=== PATIENT | female | born 1950 | race Caucasian/White ===

== ENCOUNTER 2018-10-26 08:00 | Day surgery (SDC) | payer MEDICARE, SELFPAY ==
--- NOTE | 2018-10-22 18:42 | PM.PREOP ---
Pre-operative Note Interval Note History & Physical reviewed/Exam performed by Physician: Yes Changes to H&P: No
--- NOTE | 2018-10-22 18:42 | PM.OP.1 ---
Operative Date/Time/Diagnoses Date of procedure: 10/26/18 Time of procedure: 08:45 Procedure & Clinicians Procedure: Preoperative diagnoses: 1. Left nuclear sclerotic and cortical cataract. 2. Morbid obesity. Postoperative diagnoses: 1. Cataract removed by phacoemulsification with placement of posterior chamber intraocular lens. Procedure: Phacoemulsification with posterior chamber intraocular lens implant Surgeon: Jana Pina MD Complications: None Specimen: None Implant: ZCBOO+19.5 Blood loss: None Anesthesia: Retrobulbar with monitored standby Description of procedure: Patient presents with a complaint of decreased vision due to cataract which is affecting activities of daily living. The patient wants surgery to improve vision. The patient was taken to the operating room and given IV sedation. A retrobulbar block consisting of 6 cc of 2% xylocaine without epinephrine mixed half and half with 0.5% Marcaine with 1 cc of hyaluronidase added is placed between the medial and lateral 1/3 of the inferior orbital rim. Lid akinesia is obtain with 1% xylocaine with epinephrine infiltrated along the lid margin. The eye is manually massaged for 30 sec, prepped using Betadine solution, and draped in the usual sterile fashion. Temporal approach was made, a 1 mm side-port incision was made 90? from the proposed clear corneal incision position. Phenylephrine 1.5% mixed with 1% xylocaine 0.2 cc was placed into the anterior chamber. Viscoat followed by Robert was then placed. A 2.6 mm clear incision with a 2.6 mm blade was placed. A 360 degree capsulorrhexis style capsulotomy was then performed with a cystitome needle on a Healon. Hydrodelineation and hydrodissection were performed. The phacoemulsification unit is introduced, and sculpting notice used to groove the central lens. It is then removed in chopping mode. Epi nucleus is removed with epinuclear mode and irrigation aspiration was used to remove the peripheral cortex. The posterior capsule is polished. The intraocular lens is selected, inspected, power confirmed, and placed in the posterior chamber. The pupil was constricted with Miostat.. The wound was stromally hydrated and tested for leaks, there was none and it was left sutureless. Vigamox 0.1 cc was placed into the anterior chamber. Kenalog 0.2 cc was placed in the superior subconjunctival space. A drop of antibiotic and was placed and the eye was patched and shielded. The patient was stable and returned to the recovery room in excellent condition. Dictated by: Jana Pina MD Copy to: [facility]
[2018-10-26] MEDS: PROPARACAINE 0.5% OPHTH SOL 2 DROPS EYE-OP (08:18)
[2018-10-26] MEDS: CATARACT EYE COMPOUND (10 DROPS/SYRINGE) 3 DROPS EYE-OP (08:24)
[2018-10-26 08:27] VITALS: BP 141/87; PULSE 70; RESP 16; O2SAT 95; BMI 35.9
[2018-10-26] MEDS: BALANCED SALT IRRIG SOLN NO.2 15 ML IRR (09:18)
[2018-10-26] MEDS: CARBACHOL 1.5 ML VIAL INJ (09:18)
[2018-10-26] MEDS: CHONDROIDTIN/SOD HYALURONATE 1.05 ML SYRINGE INTRAOCULA (09:19)
[2018-10-26] MEDS: HYALURONATE SODIUM 10 MG/ML SYRINGE INJ (09:19)
[2018-10-26] MEDS: LIDOCAINE 1% W/EPI INJ 20 ML INJ (09:19)
[2018-10-26] MEDS: ERYTHROMYCIN OPHTH 1 GM OINT 1 APPLIC EYE-LEFT (09:19)
[2018-10-26] MEDS: MOXIFLOXACIN OPHTH DROPS 3 ML BOTTLE 2 DROPS INJ (09:20)
[2018-10-26] MEDS: OFLOXACIN 0.3% OPHTH 5 ML 2 DROPS EYE-LEFT (09:20)
[2018-10-26] MEDS: TRIAMCINOLONE 50 MG/5 ML VIAL INJ (09:21)
[2018-10-26] MEDS: PHENYLEPHRINE/LIDOCAINE VIAL (OR) 0.2 ML EYE-OP (09:21)
[2018-10-26] MEDS: BALANCED SALT IRRIG SOLN NO.2 500 ML, EPINEPHrine 1 MG IRR (09:22)
[2018-10-26] MEDS: LIDOCAINE 2% 4 ML, BUPIVACAINE 0.5% (PF) 4 ML, HYALURONIDASE 150 UNIT INJ (09:23)
[2018-10-26 09:45] VITALS: BP 152/82; PULSE 57; RESP 20; TEMP 36.5; O2SAT 97
== END 2018-10-26 09:55 | disposition home or self-care (01) ==
LOC: OR 08:05
PROVIDERS: Visit Provider Ophthalmology
PROC: (CPT 66984; principal; 2018-10-26 08:45)
DX: H25.812 Combined forms of age-related cataract, left eye (principal); E66.01 Morbid (severe) obesity due to excess calories
CPT/HCPCS: 66984; J0171; J2704; J3301; J3470

== ENCOUNTER 2018-11-02 11:53 | Day surgery (SDC) | payer MEDICARE, SELFPAY ==
--- NOTE | 2018-11-01 18:33 | PM.PREOP ---
Pre-operative Note Interval Note History & Physical reviewed/Exam performed by Physician: Yes Changes to H&P: No
--- NOTE | 2018-11-02 08:40 | PM.OP.1 ---
Operative Date/Time/Diagnoses Date of procedure: 11/02/18 Time of procedure: 13:15 Procedure & Clinicians Procedure: Preoperative diagnoses: 1. Right nuclear sclerotic and cortical cataract. Postoperative diagnoses: 1. Cataract removed by phacoemulsification with placement of posterior chamber intraocular lens. Procedure: Phacoemulsification with posterior chamber intraocular lens implant Surgeon: Jana Pina MD Complications: None Specimen: None Implant: ZCBOO +19.0 Blood loss: None Anesthesia: Retrobulbar with monitored standby Description of procedure: Patient presents with a complaint of decreased vision due to cataract which is affecting activities of daily living. The patient wants surgery to improve vision. The patient was taken to the operating room and given IV sedation. A retrobulbar block consisting of 6 cc of 2% xylocaine without epinephrine mixed half and half with 0.5% Marcaine with 1 cc of hyaluronidase added is placed between the medial and lateral 1/3 of the inferior orbital rim. The eye is manually massaged for 30 sec, prepped using Betadine solution, and draped in the usual sterile fashion. Temporal approach was made, a 1 mm side-port incision was made 90? from the proposed clear corneal incision position. Phenylephrine 1.5% mixed with 1% xylocaine 0.2 cc was placed into the anterior chamber. Viscoat followed by Robert was then placed. A 2.6 mm clear incision with a 2.6 mm blade was placed. A 360 degree capsulorrhexis style capsulotomy was then performed with a cystitome needle on a Healon. Hydrodelineation and hydrodissection were performed. The phacoemulsification unit is introduced, and sculpting notice used to groove the central lens. It is then removed in chopping mode. Epi nucleus is removed with epinuclear mode and irrigation aspiration was used to remove the peripheral cortex. The posterior capsule is polished. The intraocular lens is selected, inspected, power confirmed, and placed in the posterior chamber. The pupil was constricted with Miostat.. The wound was stromally hydrated and tested for leaks, there was none and it was left sutureless. Vigamox 0.1 cc was placed into the anterior chamber. Kenalog 0.2 cc was placed in the superior subconjunctival space. A drop of antibiotic and was placed and the eye was patched and shielded. The patient was stable and returned to the recovery room in excellent condition. Dictated by: Jana Pina MD Copy to: [facility]
[2018-11-02 12:13] VITALS: BP 134/78; PULSE 60; RESP 16; TEMP 36.7; O2SAT 98; BMI 36.0
[2018-11-02] MEDS: PROPARACAINE 0.5% OPHTH SOL 2 DROPS EYE-OP (12:23)
[2018-11-02] MEDS: CATARACT EYE COMPOUND (10 DROPS/SYRINGE) 3 DROPS EYE-OP (12:30)
[2018-11-02] MEDS: PHENYLEPHRINE/LIDOCAINE VIAL (OR) 0.2 ML EYE-OP (14:23)
[2018-11-02] MEDS: CHONDROIDTIN/SOD HYALURONATE 1.05 ML SYRINGE INTRAOCULA ×2 (14:24→14:26)
[2018-11-02] MEDS: TRIAMCINOLONE 50 MG/5 ML VIAL INJ (14:24)
[2018-11-02] MEDS: MOXIFLOXACIN OPHTH DROPS 3 ML BOTTLE 2 DROPS INJ (14:24)
[2018-11-02] MEDS: LIDOCAINE 2% 4 ML, BUPIVACAINE 0.5% (PF) 4 ML, HYALURONIDASE 150 UNIT INJ (14:25)
[2018-11-02] MEDS: BALANCED SALT IRRIG SOLN NO.2 500 ML, EPINEPHrine 1 MG IRR (14:25)
[2018-11-02] MEDS: BALANCED SALT IRRIG SOLN NO.2 15 ML IRR (14:27)
[2018-11-02] MEDS: LIDOCAINE JELLY 2% 5 ML 1 APPLIC TOP (14:28)
[2018-11-02] MEDS: HYALURONATE SODIUM 10 MG/ML SYRINGE INJ (14:29)
[2018-11-02] MEDS: ERYTHROMYCIN OPHTH 1 GM OINT 1 APPLIC EYE-RIGHT (14:30)
[2018-11-02 14:46] VITALS: BP 135/80; PULSE 61; RESP 15; TEMP 36.4; O2SAT 97
[2018-11-02 18:18] VITALS: BP 129/79; PULSE 66; RESP 16; TEMP 36.7; O2SAT 99
== END 2018-11-02 15:10 | disposition home or self-care (01) ==
LOC: OR 11:56
PROVIDERS: Visit Provider Ophthalmology
PROC: (CPT 66984; principal; 2018-11-02 13:15)
DX: H25.811 Combined forms of age-related cataract, right eye (principal); I10 Essential (primary) hypertension
CPT/HCPCS: 66984; J0171; J2250; J3010; J3301; J3470

== ENCOUNTER → 2021-01-17 14:58 | Outpatient (CLI) | payer MEDICARE, SELFPAY ==
--- NOTE | 2021-01-17 | DI.MG.S_ITS ---
BILATERAL DIGITAL SCREENING MAMMOGRAM 3D/2D WITH CAD: 01/17/2021 CLINICAL: Routine screening. Comparison is made to exams dated: 06/06/2015 mammogram, 08/04/2016 mammogram, and 09/22/2017 mammogram - outside facility. There are scattered fibroglandular elements in both breasts. Current study was also evaluated with a Computer Aided Detection (CAD) system. No significant masses, calcifications, or other findings are seen in either breast. There has been no significant interval change. IMPRESSION: NEGATIVE There is no mammographic evidence of malignancy. A 1 year screening mammogram is recommended. This exam was interpreted at Station ID: [id number]. NOTE: For mammograms, a report in lay terms will be sent to the patient. Approximately 15% of breast malignancies will not be visualized mammographically. In the management of a palpable breast mass, a negative mammogram must not discourage biopsy of a clinically suspicious lesion. Electronically Signed By: Fady Ortiz M.D. [facility] [place]:01/17/2021 17:07:49 letter sent: Normal Exam ACR BI-RADS Category 1: Negative 3341F
== END ==
PROVIDERS: PCP Internal Medicine; Referring Provider Internal Medicine; Visit Provider Internal Medicine
DX: Z12.31 Encounter for screening mammogram for malignant neoplasm of breast (principal)
CPT/HCPCS: 77063; 77067

== ENCOUNTER → 2022-04-21 15:43 | Outpatient (CLI) | payer MEDICARE, SELFPAY ==
--- NOTE | 2022-04-21 15:45 | DI.MG.S_ITS ---
BILATERAL DIGITAL SCREENING MAMMOGRAM 3D/2D WITH CAD: 04/21/2022 CLINICAL: Routine screening. Family history of breast cancer. Comparison is made to exams dated: 01/17/2021 mammogram - [facility] and 09/22/2017 mammogram - outside facility. There are scattered areas of fibroglandular density in both breasts (category b / 25%-50% glandular tissue). Current study was also evaluated with a Computer Aided Detection (CAD) system. No significant masses, calcifications, or other findings are seen in either breast. There has been no significant interval change. IMPRESSION: NEGATIVE There is no mammographic evidence of malignancy. A 1 year screening mammogram is recommended. Based on the Tyrer Cuzick model (a risk assessment model) the patient's lifetime risk is 3.5% and her 10 year risk is 2.4%. According to the ACR, ACS, and NCCN guidelines, an annual breast MRI exam along with mammogram is recommended if the patient's lifetime risk is 20% or greater. This exam was interpreted at Station ID: [id number]. NOTE: For mammograms, a report in lay terms will be sent to the patient. Approximately 15% of breast malignancies will not be visualized mammographically. In the management of a palpable breast mass, a negative mammogram must not discourage biopsy of a clinically suspicious lesion. Electronically Signed By: Fady madsen/vitaliy:04/22/2022 10:35:53 letter sent: Normal Exam ACR BI-RADS Category 1: Negative 3341F
== END ==
PROVIDERS: Family Provider Orthopaedic Surgery; PCP Orthopaedic Surgery; Referring Provider Family Medicine Adult Medicine; Visit Provider Family Medicine Adult Medicine
DX: Z12.31 Encounter for screening mammogram for malignant neoplasm of breast (principal); Z80.3 Family history of malignant neoplasm of breast
CPT/HCPCS: 77063; 77067

== ENCOUNTER 2022-07-23 09:00 | Outpatient (RCR) | payer MEDICARE, SELFPAY ==
--- NOTE | 2022-05-11 18:06 | PT.OIE ---
Current Diagnoses Unilateral primary osteoarthritis, left knee (05/11/22) Visit Care Team Role Provider Type Joel Ibanez MD Attending Provider Non-Staff Family Provider Primary Care Provider Referring Provider Specialty: Orthopedic Surgery Address: [address], [place], [address] Email: Physical Therapy Initial Evaluation PT-OP-A Visit Information Start: 05/09/22 16:15 Freq: Status: Active Protocol: Document 05/11/22 09:07 LRN (Rec: 05/11/22 09:47 LRN [id number]) Out-Patient Physical Therapy Visit Information Visit Information Visit Type Initial Evaluation Visit Start Time 09:07 Visit Stop Time 09:46 Total Visit Minutes 39 Visit Number 1 Evaluation Information Evaluation Date 05/11/22 Precautions Precautions Cardiac arrhythmia s/p surgery , and being assessed for Cardiac arrhythmia. R TKA -rehab ending 02/13/22. PT-OP-B Current Condition Start: 05/09/22 16:15 Freq: Status: Active Protocol: Document 05/11/22 09:07 LRN (Rec: 05/11/22 09:47 LRN [id number]) Current Condition History of Current Condition Onset Date 04/27/22 Current Complaints Lack of L knee rom, pain-reqs med, hamstring tight, antalgic gt-FWW. History of Current Condition Pt is s/p L TKA on 04/27/22 and was in hospital 1 day but due to onset of A.Fib was kept in recovery for a few more hours . Wore a heart monitor for a week with removal tomorrow. States with her R TKA she had sinus arrythmia, otherwise no history of cardiac issues. Prior Treatments and Tests Eval and 3 treatments immediately after her TKA in [facility] prior to transfer to [facility]. PT was Reny Downs DPT. Future Testing and Treatments Planned Production Control Analyst appt tomorrow. Treatment Goals Patient/Caregiver Goals Pt goals: - walk correctly without an assistive device. - Stairs with normal gait. - Transfer without assist of strap. Personal Factors Other Personal Factors That May Effect Pt s/p R TKA 12/10/21 with last Therapy/Recovery rehab treatment 02/13/22, ending with difficulty with sit to stand from lower surfaces. Pt being assessed currently for Cardiac arrhythmia. PT-OP-G Mobility & Gait Start: 05/09/22 16:15 Freq: Status: Active Protocol: Document 05/11/22 09:07 LRN (Rec: 05/11/22 09:47 LRN [id number]) OP Mobility Evaluation Bed Mobility Supine to and from Sit Independent with use of strap to help lift the LLE off the bed. Transfers Sit to Stand Independent with use of hands and FWW from higher surface. OP Gait Assessment Gait Gait Assistance Required: Independent Able to Maintain Weight Bearing Status Yes During Gait Assistive Devices Assistive Device Front Wheeled Walker Gait Deviations General Gait Pattern Antalgic,Decreased Stride Length,Flexed Trunk,Step-to Gait Stair Climbing Evaluation Devices Stair Climbing Assistive Devices Right Railing Technique/Endurance Stair Climbing Direction Ascend and Descend Stair Climbing Technique Step to Step Comments Stair Climbing Comments Ascending railing on R, Walking stick on L. PT-OP-H Neuro Start: 05/09/22 16:15 Freq: Status: Active Protocol: Document 05/11/22 09:07 LRN (Rec: 05/11/22 09:47 LRN [id number]) Sensation Evaluation Comments Summary Comments Sensation intact to soft touch in areas not covered by bandage. PT-OP-J Posture/Palpation/Skin Start: 05/09/22 16:15 Freq: Status: Active Protocol: Document 05/11/22 09:07 LRN (Rec: 05/11/22 09:47 LRN [id number]) Posture Evaluation Position Standing L-Spine Posture Flattened Weight Distribution Weight Shifted Right Hip Posture (L) Flexed,(R) Flexed Comments Posture Comments Pt assessed with use of FWW for balance support. Palpation Assessment Location L knee Palpation Location Areas around scar protective bandage. Palpation Details Sensation intact. Skin Assessment Other Assessments Skin Assessment Comments Patient wearing thigh-high MIRELA hose left LE. Pt incision covered with protective bandage. PT-OP-K Range of Motion Start: 05/09/22 16:15 Freq: Status: Active Protocol: Document 05/11/22 09:07 LRN (Rec: 05/11/22 09:47 LRN [id number]) Knee Goniometric Range of Motion Knee Right Knee ROM WFL Yes Patient Position Supine Flexion Active (degrees) 116 Extension Active (degrees) 6 Extension Passive (degrees) 0 Comments Extension deg's indicates lack of extension to normal. Left Knee ROM WFL No Patient Position Supine Flexion Active (degrees) 58 Flexion Passive (degrees) 70 Extension Active (degrees) 30 Extension Passive (degrees) 6 Comments Extension deg's indicates lack of extension to normal. Ankle and Foot Goniometric Range of Motion Ankle and Foot Right Active Dorsiflexion with Knee Extended 8 Inversion 22 Comments PF and EV are normal Left Active Testing Position Supine Dorsiflexion with Knee Extended 0 Inversion 12 Comments PF and EV are normal PT-OP-M Strength Start: 05/09/22 16:15 Freq: Status: Active Protocol: Document 05/11/22 09:07 LRN (Rec: 05/11/22 09:47 LRN [id number]) Hip Strength Hip Manual Muscle Testing Right Flexion (L2) 5 Normal Left Flexion (L2) 2 Poor Knee Strength Knee Manual Muscle Testing Right Flexion (S2) 5 Normal Extension (L3) 5 Normal Left Flexion (S2) 2 Poor Extension (L3) 2- Poor- Ankle/Foot Strength Ankle and Foot Manual Muscle Testing Right Dorsiflexion (L4) 5 Normal Plantarflexion (S1) 5 Normal Inversion 5 Normal Eversion (S1) 5 Normal Left Dorsiflexion (L4) 5 Normal Plantarflexion (S1) 5 Normal Inversion 5 Normal Eversion (S1) 5 Normal PT-OP-Q Treatments Start: 05/09/22 16:15 Freq: Status: Active Protocol: Document 05/11/22 09:07 LRN (Rec: 05/11/22 09:47 LRN [id number]) Therapeutic Exercises Supine Exercises Hip AB Supine Exercise Name Assisted hip AB Side left Reps/Minutes 10x Heel slides Supine Exercise Name Heel slides Side left Reps/Minutes 5x SLR Supine Exercise Name Assisted SLR Side left Reps/Minutes 10x QS Supine Exercise Name L QS Side left Reps/Minutes 10 SH x 6 Self-Care/Home Management Treatment Education Other Education Discussed results of evaluation, goals, and plan of care (POC). Pt agreeable to goals and POC. PT-OP-T Assessment and Plan Start: 05/09/22 16:15 Freq: Status: Active Protocol: Document 05/11/22 09:07 LRN (Rec: 05/11/22 09:47 LRN [id number]) Physical Therapy Assessment Rehab Potential Rehabilitation Potential Good Evaluation Complexity Number of Personal Factors/Comorbidities 1-2 Number of Body Systems Impaired 4 or More Clinical Presentation at Evaluation Evolving Impairments Impairments Activity Tolerance,Balance, Gait,Pain,ROM,Sensation,Soft Tissue Mobility,Strength Goals Four Impairment L knee/hip weakness Impairment L knee strength: Flexion 2/5, Extension 2-/5 R knee strength: Flex/Ext is 5/5 Short Term Goal (STG) Improve L knee strength to at least 3+/5, with pt able to transfer out of bed without the use of a strap to move the LLE. STG Duration 06/26/22 Fpc Goal (LTG) Improve L knee strength to at least 4+/5 to allow patient to ambulate stairs with a normal gait. LTG Duration 08/09/22 Three Impairment Decreased L knee AROM Impairment L knee AROM (deg's): 30-58, PROM (deg's): 6-70 R knee AROM (deg's): 6-116, PROM (deg's): 0 deg's extension. Short Term Goal (STG) Improve L knee PROM to 5-120 STG Duration 06/26/22 Program Eligibility Specialist Goal (LTG) Improve L knee PROM to 0-125 LTG Duration 08/09/22 Two Impairment gait dysfunction Impairment Pt ambs with FWW, antalgic gait, lacks L ankle/knee mobility Short Term Goal (STG) Patient able to ambulate household distances with cane with min to no limp on level surfaces. STG Duration 06/26/22 Fpc Goal (LTG) Pt will ambulate with a normal gait or very minimal antalgic gait without an assistive device. LTG Duration 08/09/22 One Impairment Lacks self care HEP Short Term Goal (STG) Pt will be educated in edema management. STG Duration 05/15/22 Fpc Goal (LTG) Pt will be independent with a self care HEP of L knee, ankle , hip ROM/strengthening ex's to address areas of deficit. LTG Duration 08/09/22 Assessment Summary Assessment Pt is a 71 yo female s/p L TKA on 04/27/22. Pt recently had a R TKA on 12/10/21 with last rehab treatment 02/13/22. The pt presents with very limited L knee strength and fair to poor AROM with extension lag of 30 deg's. The pt demonstrates a dysfunctional gait requiring the use of FWW for safe ambulation. She demonstrates decreased ankle mobility and decreased hip mobility/strength. Pain is limiting her mobility and she is concerned that she will have more difficulty once she runs out of her current prescription pain medications. The pt will benefit from skilled physical therapy to improve her L knee/ankle/hip ROM, strength, and balance/ gait training to improve her safety with gait and return her to her baseline of ambulation and improve her transfer ability from lower surfaces. The pt has noted that she is having more pain with this surgery when compared to her R TKA surgery, but feels her knee mobility has progressed faster. The pt is expected to do well with therapy, but may have difficulty with transfers from low surfaces due to R knee decreased mobility. The pt may need extra encouragement to resume R TKA ex's to improve ROM to her prior functional level in order to achieve her goals set for her L TKA. Physical Therapy Plan Frequency and Duration Frequency of Treatment 2x/Week Plan of Care Start Date 05/11/22 Plan of Care End Date 08/09/22 Therapeutic Interventions Therapeutic Interventions Balance Training,Gait Training ,Home Exercise Program,Manual Therapy,Patient/Caregiver Education,Self-Care/Home Management,Soft Tissue Mobilization,Taping, Therapeutic Activities, Therapeutic Exercises Modalities Cold Pack/Ice Massage,Hot Packs Next Visit Focus/Plan Next Note Type Treatment Note Next Visit Plan Gait training with emphasis on heelstrike and normalizing of gait, Pain management education, transfer training for independence. L knee ROM, L ankle DF stretching, L hip strengthening. Stair training when appropriate mobiltiy achieved. Progress HEP as tolerated including consider adding standing heel raises and marching. Modalities for pain management .
--- NOTE | 2022-05-11 18:08 | PT.OIE ---
Current Diagnoses Unilateral primary osteoarthritis, left knee (05/11/22) Visit Care Team Role Provider Type Joel Ibanez MD Attending Provider Non-Staff Family Provider Primary Care Provider Referring Provider Specialty: Orthopedic Surgery Address: [address], [place], [address] Email: Physical Therapy Initial Evaluation PT-OP-A Visit Information Start: 05/09/22 16:15 Freq: Status: Active Protocol: Document 05/11/22 09:07 LRN (Rec: 05/11/22 09:47 LRN [id number]) Out-Patient Physical Therapy Visit Information Visit Information Visit Type Initial Evaluation Visit Start Time 09:07 Visit Stop Time 09:46 Total Visit Minutes 39 Visit Number 1 Evaluation Information Evaluation Date 05/11/22 Precautions Precautions Cardiac arrhythmia s/p surgery , and being assessed for Cardiac arrhythmia. R TKA -rehab ending 02/13/22. PT-OP-B Current Condition Start: 05/09/22 16:15 Freq: Status: Active Protocol: Document 05/11/22 09:07 LRN (Rec: 05/11/22 09:47 LRN [id number]) Current Condition History of Current Condition Onset Date 04/27/22 Current Complaints Lack of L knee rom, pain-reqs med, hamstring tight, antalgic gt-FWW. History of Current Condition Pt is s/p L TKA on 04/27/22 and was in hospital 1 day but due to onset of A.Fib was kept in recovery for a few more hours . Wore a heart monitor for a week with removal tomorrow. States with her R TKA she had sinus arrythmia, otherwise no history of cardiac issues. Prior Treatments and Tests Eval and 3 treatments immediately after her TKA in [facility] prior to transfer to [facility]. PT was Reny Downs DPT. Future Testing and Treatments Planned Health Technician appt tomorrow. Treatment Goals Patient/Caregiver Goals Pt goals: - walk correctly without an assistive device. - Stairs with normal gait. - Transfer without assist of strap. Personal Factors Other Personal Factors That May Effect Pt s/p R TKA 12/10/21 with last Therapy/Recovery rehab treatment 02/13/22, ending with difficulty with sit to stand from lower surfaces. Pt being assessed currently for Cardiac arrhythmia. PT-OP-C Subjective Start: 05/09/22 16:15 Freq: Status: Active Protocol: Document 05/11/22 09:07 LRN (Rec: 05/11/22 18:08 LRN [id number]) Patient Questionnaires Lower Extremity Functional Scale LEFS Score 14 LEFS Impairment 80 to 99% Impaired (Score 1-16 ) PT-OP-G Mobility & Gait Start: 05/09/22 16:15 Freq: Status: Active Protocol: Document 05/11/22 09:07 LRN (Rec: 05/11/22 09:47 LRN [id number]) OP Mobility Evaluation Bed Mobility Supine to and from Sit Independent with use of strap to help lift the LLE off the bed. Transfers Sit to Stand Independent with use of hands and FWW from higher surface. OP Gait Assessment Gait Gait Assistance Required: Independent Able to Maintain Weight Bearing Status Yes During Gait Assistive Devices Assistive Device Front Wheeled Walker Gait Deviations General Gait Pattern Antalgic,Decreased Stride Length,Flexed Trunk,Step-to Gait Stair Climbing Evaluation Devices Stair Climbing Assistive Devices Right Railing Technique/Endurance Stair Climbing Direction Ascend and Descend Stair Climbing Technique Step to Step Comments Stair Climbing Comments Ascending railing on R, Walking stick on L. PT-OP-H Neuro Start: 05/09/22 16:15 Freq: Status: Active Protocol: Document 05/11/22 09:07 LRN (Rec: 05/11/22 09:47 LRN [id number]) Sensation Evaluation Comments Summary Comments Sensation intact to soft touch in areas not covered by bandage. PT-OP-J Posture/Palpation/Skin Start: 05/09/22 16:15 Freq: Status: Active Protocol: Document 05/11/22 09:07 LRN (Rec: 05/11/22 09:47 LRN [id number]) Posture Evaluation Position Standing L-Spine Posture Flattened Weight Distribution Weight Shifted Right Hip Posture (L) Flexed,(R) Flexed Comments Posture Comments Pt assessed with use of FWW for balance support. Palpation Assessment Location L knee Palpation Location Areas around scar protective bandage. Palpation Details Sensation intact. Skin Assessment Other Assessments Skin Assessment Comments Patient wearing thigh-high MIRELA hose left LE. Pt incision covered with protective bandage. PT-OP-K Range of Motion Start: 02/11/23 16:15 Freq: Status: Active Protocol: Document 05/11/22 09:07 LRN (Rec: 05/11/22 09:47 LRN [id number]) Knee Goniometric Range of Motion Knee Right Knee ROM WFL Yes Patient Position Supine Flexion Active (degrees) 116 Extension Active (degrees) 6 Extension Passive (degrees) 0 Comments Extension deg's indicates lack of extension to normal. Left Knee ROM WFL No Patient Position Supine Flexion Active (degrees) 58 Flexion Passive (degrees) 70 Extension Active (degrees) 30 Extension Passive (degrees) 6 Comments Extension deg's indicates lack of extension to normal. Ankle and Foot Goniometric Range of Motion Ankle and Foot Right Active Dorsiflexion with Knee Extended 8 Inversion 22 Comments PF and EV are normal Left Active Testing Position Supine Dorsiflexion with Knee Extended 0 Inversion 12 Comments PF and EV are normal PT-OP-M Strength Start: 05/09/22 16:15 Freq: Status: Active Protocol: Document 05/11/22 09:07 LRN (Rec: 05/11/22 09:47 LRN [id number]) Hip Strength Hip Manual Muscle Testing Right Flexion (L2) 5 Normal Left Flexion (L2) 2 Poor Knee Strength Knee Manual Muscle Testing Right Flexion (S2) 5 Normal Extension (L3) 5 Normal Left Flexion (S2) 2 Poor Extension (L3) 2- Poor- Ankle/Foot Strength Ankle and Foot Manual Muscle Testing Right Dorsiflexion (L4) 5 Normal Plantarflexion (S1) 5 Normal Inversion 5 Normal Eversion (S1) 5 Normal Left Dorsiflexion (L4) 5 Normal Plantarflexion (S1) 5 Normal Inversion 5 Normal Eversion (S1) 5 Normal PT-OP-Q Treatments Start: 05/09/22 16:15 Freq: Status: Active Protocol: Document 05/11/22 09:07 LRN (Rec: 05/11/22 09:47 LRN [id number]) Therapeutic Exercises Supine Exercises Hip AB Supine Exercise Name Assisted hip AB Side left Reps/Minutes 10x Heel slides Supine Exercise Name Heel slides Side left Reps/Minutes 5x SLR Supine Exercise Name Assisted SLR Side left Reps/Minutes 10x QS Supine Exercise Name L QS Side left Reps/Minutes 10 SH x 6 Self-Care/Home Management Treatment Education Other Education Discussed results of evaluation, goals, and plan of care (POC). Pt agreeable to goals and POC. PT-OP-T Assessment and Plan Start: 05/09/22 16:15 Freq: Status: Active Protocol: Document 05/11/22 09:07 FABN (Rec: 05/11/22 09:47 LRN [id number]) Physical Therapy Assessment Rehab Potential Rehabilitation Potential Good Evaluation Complexity Number of Personal Factors/Comorbidities 1-2 Number of Body Systems Impaired 4 or More Clinical Presentation at Evaluation Evolving Impairments Impairments Activity Tolerance,Balance, Gait,Pain,ROM,Sensation,Soft Tissue Mobility,Strength Goals Four Impairment L knee/hip weakness Impairment L knee strength: Flexion 2/5, Extension 2-/5 R knee strength: Flex/Ext is 5/5 Short Term Goal (STG) Improve L knee strength to at least 3+/5, with pt able to transfer out of bed without the use of a strap to move the LLE. STG Duration 06/26/22 Correction Goal (LTG) Improve L knee strength to at least 4+/5 to allow patient to ambulate stairs with a normal gait. LTG Duration 08/09/22 Three Impairment Decreased L knee AROM Impairment L knee AROM (deg's): 30-58, PROM (deg's): 6-70 R knee AROM (deg's): 6-116, PROM (deg's): 0 deg's extension. Short Term Goal (STG) Improve L knee PROM to 5-120 STG Duration 06/26/22 Instrument Assembly Supervisor Goal (LTG) Improve L knee PROM to 0-125 LTG Duration 08/09/22 Two Impairment gait dysfunction Impairment Pt ambs with FWW, antalgic gait, lacks L ankle/knee mobility Short Term Goal (STG) Patient able to ambulate household distances with cane with min to no limp on level surfaces. STG Duration 06/26/22 Correction Goal (LTG) Pt will ambulate with a normal gait or very minimal antalgic gait without an assistive device. LTG Duration 08/09/22 One Impairment Lacks self care HEP Short Term Goal (STG) Pt will be educated in edema management. STG Duration 05/15/22 Instrument Assembly Supervisor Goal (LTG) Pt will be independent with a self care HEP of L knee, ankle , hip ROM/strengthening ex's to address areas of deficit. LTG Duration 08/09/22 Assessment Summary Assessment Pt is a 71 yo female s/p L TKA on 04/27/22. Pt recently had a R TKA on 12/10/21 with last rehab treatment 02/13/22. The pt presents with very limited L knee strength and fair to poor AROM with extension lag of 30 deg's. The pt demonstrates a dysfunctional gait requiring the use of FWW for safe ambulation. She demonstrates decreased ankle mobility and decreased hip mobility/strength. Pain is limiting her mobility and she is concerned that she will have more difficulty once she runs out of her current prescription pain medications. The pt will benefit from skilled physical therapy to improve her L knee/ankle/hip ROM, strength, and balance/ gait training to improve her safety with gait and return her to her baseline of ambulation and improve her transfer ability from lower surfaces. The pt has noted that she is having more pain with this surgery when compared to her R TKA surgery, but feels her knee mobility has progressed faster. The pt is expected to do well with therapy, but may have difficulty with transfers from low surfaces due to R knee decreased mobility. The pt may need extra encouragement to resume R TKA ex's to improve ROM to her prior functional level in order to achieve her goals set for her L TKA. Physical Therapy Plan Frequency and Duration Frequency of Treatment 2x/Week Plan of Care Start Date 05/11/22 Plan of Care End Date 08/09/22 Therapeutic Interventions Therapeutic Interventions Balance Training,Gait Training ,Home Exercise Program,Manual Therapy,Patient/Caregiver Education,Self-Care/Home Management,Soft Tissue Mobilization,Taping, Therapeutic Activities, Therapeutic Exercises Modalities Cold Pack/Ice Massage,Hot Packs Next Visit Focus/Plan Next Note Type Treatment Note Next Visit Plan Gait training with emphasis on heelstrike and normalizing of gait, Pain management education, transfer training for independence. L knee ROM, L ankle DF stretching, L hip strengthening. Stair training when appropriate mobiltiy achieved. Progress HEP as tolerated including consider adding standing heel raises and marching. Modalities for pain management .
--- NOTE | 2022-05-14 16:51 | PT.OTN ---
Current Diagnoses Unilateral primary osteoarthritis, left knee (05/14/22) Physical Therapy Treatment Note PT-OP-A Visit Information Start: 05/09/22 16:15 Freq: Status: Active Protocol: Document 05/14/22 09:01 LRN (Rec: 05/14/22 09:42 LRN [id number]) Out-Patient Physical Therapy Visit Information Visit Information Visit Type Treatment Note Visit Start Time 09:01 Visit Stop Time 09:41 Total Visit Minutes 40 Visit Number 2 Evaluation Information Evaluation Date 05/11/22 Precautions Precautions Cardiac arrhythmia s/p surgery , and being assessed for Cardiac arrhythmia. R TKA -rehab ending 02/13/22. PT-OP-B Current Condition Start: 05/09/22 16:15 Freq: Status: Active Protocol: Document 05/11/22 09:07 LRN (Rec: 05/11/22 09:47 LRN [id number]) Current Condition History of Current Condition Onset Date 04/27/22 Current Complaints Lack of L knee rom, pain-reqs med, hamstring tight, antalgic gt-FWW. History of Current Condition Pt is s/p L TKA on 04/27/22 and was in hospital 1 day but due to onset of A.Fib was kept in recovery for a few more hours . Wore a heart monitor for a week with removal tomorrow. States with her R TKA she had sinus arrythmia, otherwise no history of cardiac issues. Prior Treatments and Tests Eval and 3 treatments immediately after her TKA in [facility] prior to transfer to [facility]. PT was Reny Downs DPT. Future Testing and Treatments Planned Ged Teacher appt tomorrow. Treatment Goals Patient/Caregiver Goals Pt goals: - walk correctly without an assistive device. - Stairs with normal gait. - Transfer without assist of strap. Personal Factors Other Personal Factors That May Effect Pt s/p R TKA 12/10/21 with last Therapy/Recovery rehab treatment 02/13/22, ending with difficulty with sit to stand from lower surfaces. Pt being assessed currently for Cardiac arrhythmia. PT-OP-C Subjective Start: 05/09/22 16:15 Freq: Status: Active Protocol: Document 05/14/22 09:01 HESHAM (Rec: 05/14/22 09:42 LRN [id number]) OP-PT Subjective Patient Comments Patient Comments Ged Teacher appt and was found to be in A. Fib, so needs to be on blood thinners from now on. Did her Nustep at home for 7' in tolerable range. PT-OP-G Mobility & Gait Start: 05/09/22 16:15 Freq: Status: Active Protocol: Document 05/11/22 09:07 LRN (Rec: 05/11/22 09:47 LRN [id number]) OP Mobility Evaluation Bed Mobility Supine to and from Sit Independent with use of strap to help lift the LLE off the bed. Transfers Sit to Stand Independent with use of hands and FWW from higher surface. OP Gait Assessment Gait Gait Assistance Required: Independent Able to Maintain Weight Bearing Status Yes During Gait Assistive Devices Assistive Device Front Wheeled Walker Gait Deviations General Gait Pattern Antalgic,Decreased Stride Length,Flexed Trunk,Step-to Gait Stair Climbing Evaluation Devices Stair Climbing Assistive Devices Right Railing Technique/Endurance Stair Climbing Direction Ascend and Descend Stair Climbing Technique Step to Step Comments Stair Climbing Comments Ascending railing on R, Walking stick on L. PT-OP-H Neuro Start: 05/09/22 16:15 Freq: Status: Active Protocol: Document 05/11/22 09:07 LRN (Rec: 05/11/22 09:47 LRN [id number]) Sensation Evaluation Comments Summary Comments Sensation intact to soft touch in areas not covered by bandage. PT-OP-J Posture/Palpation/Skin Start: 05/09/22 16:15 Freq: Status: Active Protocol: Document 05/11/22 09:07 LRN (Rec: 05/11/22 09:47 LRN [id number]) Posture Evaluation Position Standing L-Spine Posture Flattened Weight Distribution Weight Shifted Right Hip Posture (L) Flexed,(R) Flexed Comments Posture Comments Pt assessed with use of FWW for balance support. Palpation Assessment Location L knee Palpation Location Areas around scar protective bandage. Palpation Details Sensation intact. Skin Assessment Other Assessments Skin Assessment Comments Patient wearing thigh-high MIRELA hose left LE. Pt incision covered with protective bandage. PT-OP-K Range of Motion Start: 05/09/22 16:15 Freq: Status: Active Protocol: Document 05/11/22 09:07 LRN (Rec: 05/11/22 09:47 LRN [id number]) Knee Goniometric Range of Motion Knee Right Knee ROM WFL Yes Patient Position Supine Flexion Active (degrees) 116 Extension Active (degrees) 6 Extension Passive (degrees) 0 Comments Extension deg's indicates lack of extension to normal. Left Knee ROM WFL No Patient Position Supine Flexion Active (degrees) 58 Flexion Passive (degrees) 70 Extension Active (degrees) 30 Extension Passive (degrees) 6 Comments Extension deg's indicates lack of extension to normal. Ankle and Foot Goniometric Range of Motion Ankle and Foot Right Active Dorsiflexion with Knee Extended 8 Inversion 22 Comments PF and EV are normal Left Active Testing Position Supine Dorsiflexion with Knee Extended 0 Inversion 12 Comments PF and EV are normal PT-OP-M Strength Start: 05/09/22 16:15 Freq: Status: Active Protocol: Document 05/11/22 09:07 LRN (Rec: 05/11/22 09:47 [facility] [id number]) Hip Strength Hip Manual Muscle Testing Right Flexion (L2) 5 Normal Left Flexion (L2) 2 Poor Knee Strength Knee Manual Muscle Testing Right Flexion (S2) 5 Normal Extension (L3) 5 Normal Left Flexion (S2) 2 Poor Extension (L3) 2- Poor- Ankle/Foot Strength Ankle and Foot Manual Muscle Testing Right Dorsiflexion (L4) 5 Normal Plantarflexion (S1) 5 Normal Inversion 5 Normal Eversion (S1) 5 Normal Left Dorsiflexion (L4) 5 Normal Plantarflexion (S1) 5 Normal Inversion 5 Normal Eversion (S1) 5 Normal PT-OP-Q Treatments Start: 05/09/22 16:15 Freq: Status: Active Protocol: Document 05/14/22 09:01 LRN (Rec: 05/14/22 09:42 [facility] [id number]) Cardio Equipment Recumbent Elliptical (Biodex) Duration (Minutes) 8 Resistance 1 Seat Position 13 Therapeutic Exercises Supine Exercises Hip AB Supine Exercise Name Assisted hip AB Side left Reps/Minutes 10x Comments Asst & cuing to keep leg in neutral (cuing to point toes inward on AB) Heel slides Supine Exercise Name Heel slides Side left Reps/Minutes 5x SLR Supine Exercise Name Assisted SLR - Inhale on lift, exhale on lower. Side left Reps/Minutes 10x, 5x Comments Assist on lift, indep on lowering after first 7x training w/breathing. QS Supine Exercise Name L QS Side left Reps/Minutes 10 SH x 6 Comments Cuing behind the knee to push and @ quads to contract Gait Training Gait Activity Gait w/FWW Description Gait for heelstrike, equal step lengths and toe off Device Used FWW Level of Assistance V cuing Surface Level Distance/Duration 6' Manual Therapy Treatment Soft Tissue Mobilization L hamstring tendons Body Location L knee Mobilization Type Strumming Intensity/Depth Superficial Body Position Supine PT-OP-T Assessment and Plan Start: 05/09/22 16:15 Freq: Status: Active Protocol: Document 05/14/22 09:01 LRN (Rec: 05/14/22 09:42 LRN [id number]) Physical Therapy Assessment Goals Four Impairment L knee/hip weakness Impairment L knee strength: Flexion 2/5, Extension 2-/5 R knee strength: Flex/Ext is 5/5 Short Term Goal (STG) Improve L knee strength to at least 3+/5, with pt able to transfer out of bed without the use of a strap to move the LLE. STG Duration 06/26/22 Pigment Weigher Goal (LTG) Improve L knee strength to at least 4+/5 to allow patient to ambulate stairs with a normal gait. LTG Duration 08/09/22 Three Impairment Decreased L knee AROM Impairment L knee AROM (deg's): 30-58, PROM (deg's): 6-70 R knee AROM (deg's): 6-116, PROM (deg's): 0 deg's extension. Short Term Goal (STG) Improve L knee PROM to 5-120 STG Duration 06/26/22 Mcfp Goal (LTG) Improve L knee PROM to 0-125 LTG Duration 08/09/22 Two Impairment gait dysfunction Impairment Pt ambs with FWW, antalgic gait, lacks L ankle/knee mobility Short Term Goal (STG) Patient able to ambulate household distances with cane with min to no limp on level surfaces. STG Duration 06/26/22 Mcfp Goal (LTG) Pt will ambulate with a normal gait or very minimal antalgic gait without an assistive device. LTG Duration 08/09/22 One Impairment Lacks self care HEP Short Term Goal (STG) Pt will be educated in edema management. STG Duration 05/15/22 Pigment Weigher Goal (LTG) Pt will be independent with a self care HEP of L knee, ankle , hip ROM/strengthening ex's to address areas of deficit. LTG Duration 08/09/22 Assessment Summary Assessment Pt able to ambulate with walker with a good heelstrike and normal gait step lengths, but antalgic gait. Her walker hgt is low, but was put there purposely by MD to keep pt from elevating her shoulders. As pt's gait improves adjusting walker for proper hgt would be appropriate. Pt is very slow in improving L knee flexion ROM. Physical Therapy Plan Frequency and Duration Frequency of Treatment 2x/Week Plan of Care Start Date 05/11/22 Plan of Care End Date 08/09/22 Next Visit Focus/Plan Next Note Type Treatment Note Next Visit Plan Pain management education, transfer training for independence. L knee ROM, L ankle DF stretching, L hip strengthening. Stair training when appropriate mobiltiy achieved. Progress HEP as tolerated including consider adding standing heel raises and marching. Modalities for pain management .
--- NOTE | 2022-05-21 12:53 | PT.OTN ---
Current Diagnoses Unilateral primary osteoarthritis, left knee (05/21/22) Physical Therapy Treatment Note PT-OP-A Visit Information Start: 05/09/22 16:15 Freq: Status: Active Protocol: Document 05/21/22 09:01 LRN (Rec: 05/21/22 09:48 LRN [id number]) Out-Patient Physical Therapy Visit Information Visit Information Visit Type Treatment Note Visit Start Time 09:01 Visit Stop Time 09:55 Total Visit Minutes 44 Visit Number 3 Evaluation Information Evaluation Date 05/11/22 Precautions Precautions Cardiac arrhythmia s/p surgery , and being assessed for Cardiac arrhythmia. R TKA -rehab ending 02/13/22. PT-OP-B Current Condition Start: 05/09/22 16:15 Freq: Status: Active Protocol: Document 05/11/22 09:07 LRN (Rec: 05/11/22 09:47 LRN [id number]) Current Condition History of Current Condition Onset Date 04/27/22 Current Complaints Lack of L knee rom, pain-reqs med, hamstring tight, antalgic gt-FWW. History of Current Condition Pt is s/p L TKA on 04/27/22 and was in hospital 1 day but due to onset of A.Fib was kept in recovery for a few more hours . Wore a heart monitor for a week with removal tomorrow. States with her R TKA she had sinus arrythmia, otherwise no history of cardiac issues. Prior Treatments and Tests Eval and 3 treatments immediately after her TKA in [facility] prior to transfer to [facility]. PT was Reny Downs DPT. Future Testing and Treatments Planned Optical Model Maker And Tester appt tomorrow. Treatment Goals Patient/Caregiver Goals Pt goals: - walk correctly without an assistive device. - Stairs with normal gait. - Transfer without assist of strap. Personal Factors Other Personal Factors That May Effect Pt s/p R TKA 12/10/21 with last Therapy/Recovery rehab treatment 02/13/22, ending with difficulty with sit to stand from lower surfaces. Pt being assessed currently for Cardiac arrhythmia. PT-OP-C Subjective Start: 05/09/22 16:15 Freq: Status: Active Protocol: Document 05/21/22 09:01 HESHAM (Rec: 05/21/22 09:48 LRN [id number]) OP-PT Subjective Patient Comments Patient Comments States easier to get into the car today. PT-OP-G Mobility & Gait Start: 05/09/22 16:15 Freq: Status: Active Protocol: Document 05/11/22 09:07 LRN (Rec: 05/11/22 09:47 LRN [id number]) OP Mobility Evaluation Bed Mobility Supine to and from Sit Independent with use of strap to help lift the LLE off the bed. Transfers Sit to Stand Independent with use of hands and FWW from higher surface. OP Gait Assessment Gait Gait Assistance Required: Independent Able to Maintain Weight Bearing Status Yes During Gait Assistive Devices Assistive Device Front Wheeled Walker Gait Deviations General Gait Pattern Antalgic,Decreased Stride Length,Flexed Trunk,Step-to Gait Stair Climbing Evaluation Devices Stair Climbing Assistive Devices Right Railing Technique/Endurance Stair Climbing Direction Ascend and Descend Stair Climbing Technique Step to Step Comments Stair Climbing Comments Ascending railing on R, Walking stick on L. PT-OP-H Neuro Start: 05/09/22 16:15 Freq: Status: Active Protocol: Document 05/11/22 09:07 LRN (Rec: 05/11/22 09:47 LRN [id number]) Sensation Evaluation Comments Summary Comments Sensation intact to soft touch in areas not covered by bandage. PT-OP-J Posture/Palpation/Skin Start: 05/09/22 16:15 Freq: Status: Active Protocol: Document 05/11/22 09:07 LRN (Rec: 05/11/22 09:47 LRN [id number]) Posture Evaluation Position Standing L-Spine Posture Flattened Weight Distribution Weight Shifted Right Hip Posture (L) Flexed,(R) Flexed Comments Posture Comments Pt assessed with use of FWW for balance support. Palpation Assessment Location L knee Palpation Location Areas around scar protective bandage. Palpation Details Sensation intact. Skin Assessment Other Assessments Skin Assessment Comments Patient wearing thigh-high MIRELA hose left LE. Pt incision covered with protective bandage. PT-OP-K Range of Motion Start: 05/09/22 16:15 Freq: Status: Active Protocol: Document 05/11/22 09:07 LRN (Rec: 05/11/22 09:47 LRN [id number]) Knee Goniometric Range of Motion Knee Right Knee ROM WFL Yes Patient Position Supine Flexion Active (degrees) 116 Extension Active (degrees) 6 Extension Passive (degrees) 0 Comments Extension deg's indicates lack of extension to normal. Left Knee ROM WFL No Patient Position Supine Flexion Active (degrees) 58 Flexion Passive (degrees) 70 Extension Active (degrees) 30 Extension Passive (degrees) 6 Comments Extension deg's indicates lack of extension to normal. Ankle and Foot Goniometric Range of Motion Ankle and Foot Right Active Dorsiflexion with Knee Extended 8 Inversion 22 Comments PF and EV are normal Left Active Testing Position Supine Dorsiflexion with Knee Extended 0 Inversion 12 Comments PF and EV are normal PT-OP-M Strength Start: 05/09/22 16:15 Freq: Status: Active Protocol: Document 05/11/22 09:07 LRN (Rec: 05/11/22 09:47 LRN [id number]) Hip Strength Hip Manual Muscle Testing Right Flexion (L2) 5 Normal Left Flexion (L2) 2 Poor Knee Strength Knee Manual Muscle Testing Right Flexion (S2) 5 Normal Extension (L3) 5 Normal Left Flexion (S2) 2 Poor Extension (L3) 2- Poor- Ankle/Foot Strength Ankle and Foot Manual Muscle Testing Right Dorsiflexion (L4) 5 Normal Plantarflexion (S1) 5 Normal Inversion 5 Normal Eversion (S1) 5 Normal Left Dorsiflexion (L4) 5 Normal Plantarflexion (S1) 5 Normal Inversion 5 Normal Eversion (S1) 5 Normal PT-OP-Q Treatments Start: 05/09/22 16:15 Freq: Status: Active Protocol: Document 05/21/22 09:01 LRN (Rec: 05/21/22 09:48 LRN [id number]) Cardio Equipment Recumbent Elliptical (NetMovie) Duration (Minutes) 8 Resistance 1 Seat Position 13 Therapeutic Exercises Supine Exercises Deep Breathing Supine Exercise Name Training and for - lymph ex program Reps/Minutes 12' Comments Much training with phys, v., self phys cuing needed. Ankle mvmts Supine Exercise Name Ankle mvmts IV/EV - lymph ex program SAQ Supine Exercise Name SAQ - lymph ex program Side left Reps/Minutes 10x Hip AB Supine Exercise Name BKFO - lymph ex program Side left Reps/Minutes 10x Comments Assist to hold L LE in position Heel slides Supine Exercise Name Heel slides - lymph ex program Side left Reps/Minutes 10x SLR Supine Exercise Name Assisted SLR - lymph ex program Side left Reps/Minutes 10x 2 Comments Assist on lift, indep on lowering after first 7x training w/breathing. Sitting Exercises Knee flex Sitting Exercise Name Active knee flex - Kick head Side left Reps/Minutes 15x Knee ext Sitting Exercise Name Active knee ext - Kick Head Off Side left Reps/Minutes 15x PT-OP-R Modalities Start: 05/09/22 16:15 Freq: Status: Active Protocol: Document 05/21/22 09:01 LRN (Rec: 05/21/22 12:52 LRN [id number]) Hot Pack/Cold Pack Treatment Cold Pack Location L knee Treatment Duration (minutes) 10 Patient Tolerance Good Comments [place]uff, Legs up on bolster PT-OP-T Assessment and Plan Start: 05/09/22 16:15 Freq: Status: Active Protocol: Document 05/21/22 09:01 LRN (Rec: 05/21/22 09:48 LRN [id number]) Physical Therapy Assessment Goals Four Impairment L knee/hip weakness Impairment L knee strength: Flexion 2/5, Extension 2-/5 R knee strength: Flex/Ext is 5/5 Short Term Goal (STG) Improve L knee strength to at least 3+/5, with pt able to transfer out of bed without the use of a strap to move the LLE. STG Duration 06/26/22 Pet Counselor Goal (LTG) Improve L knee strength to at least 4+/5 to allow patient to ambulate stairs with a normal gait. LTG Duration 08/09/22 Three Impairment Decreased L knee AROM Impairment L knee AROM (deg's): 30-58, PROM (deg's): 6-70 R knee AROM (deg's): 6-116, PROM (deg's): 0 deg's extension. Short Term Goal (STG) Improve L knee PROM to 5-120 STG Duration 06/26/22 Pet Counselor Goal (LTG) Improve L knee PROM to 0-125 LTG Duration 08/09/22 Two Impairment gait dysfunction Impairment Pt ambs with FWW, antalgic gait, lacks L ankle/knee mobility Short Term Goal (STG) Patient able to ambulate household distances with cane with min to no limp on level surfaces. STG Duration 06/26/22 Long-Term Goal (LTG) Pt will ambulate with a normal gait or very minimal antalgic gait without an assistive device. LTG Duration 08/09/22 One Impairment Lacks self care HEP Short Term Goal (STG) Pt will be educated in edema management. STG Duration 05/15/22 Pet Counselor Goal (LTG) Pt will be independent with a self care HEP of L knee, ankle , hip ROM/strengthening ex's to address areas of deficit. LTG Duration 08/09/22 Assessment Summary Assessment Good tolerance to ex with lessening of pain at L knee and improved function with pt able to get in/out of car easier. Physical Therapy Plan Frequency and Duration Frequency of Treatment 2x/Week Plan of Care Start Date 05/11/22 Plan of Care End Date 08/09/22 Next Visit Focus/Plan Next Note Type Treatment Note Next Visit Plan Pain management education, transfer training for independence. L knee ROM, L ankle DF stretching, L hip strengthening. Stair training when appropriate mobiltiy achieved. Progress HEP as tolerated including consider adding standing heel raises and marching. Modalities for pain management .
--- NOTE | 2022-05-28 15:12 | PT.OTN ---
Current Diagnoses Unilateral primary osteoarthritis, left knee (05/28/22) Physical Therapy Treatment Note PT-OP-A Visit Information Start: 05/09/22 16:15 Freq: Status: Active Protocol: Document 05/28/22 09:03 LRN (Rec: 05/28/22 09:47 LRN [id number]) Out-Patient Physical Therapy Visit Information Visit Information Visit Type Treatment Note Visit Start Time 09:03 Visit Stop Time 09:44 Total Visit Minutes 41 Visit Number 5 Evaluation Information Evaluation Date 05/11/22 Precautions Precautions Cardiac arrhythmia s/p surgery , and being assessed for Cardiac arrhythmia. R TKA -rehab ending 02/13/22. PT-OP-B Current Condition Start: 05/09/22 16:15 Freq: Status: Active Protocol: Document 05/11/22 09:07 LRN (Rec: 05/11/22 09:47 LRN [id number]) Current Condition History of Current Condition Onset Date 04/27/22 Current Complaints Lack of L knee rom, pain-reqs med, hamstring tight, antalgic gt-FWW. History of Current Condition Pt is s/p L TKA on 04/27/22 and was in hospital 1 day but due to onset of A.Fib was kept in recovery for a few more hours . Wore a heart monitor for a week with removal tomorrow. States with her R TKA she had sinus arrythmia, otherwise no history of cardiac issues. Prior Treatments and Tests Eval and 3 treatments immediately after her TKA in [facility] prior to transfer to [facility]. PT was Reny Downs DPT. Future Testing and Treatments Planned Ramp Service Agent appt tomorrow. Treatment Goals Patient/Caregiver Goals Pt goals: - walk correctly without an assistive device. - Stairs with normal gait. - Transfer without assist of strap. Personal Factors Other Personal Factors That May Effect Pt s/p R TKA 12/10/21 with last Therapy/Recovery rehab treatment 02/13/22, ending with difficulty with sit to stand from lower surfaces. Pt being assessed currently for Cardiac arrhythmia. PT-OP-C Subjective Start: 05/09/22 16:15 Freq: Status: Active Protocol: Document 05/28/22 09:03 LRN (Rec: 05/28/22 09:47 LRN [id number]) OP-PT Subjective Patient Comments Patient Comments States she can get up/down from chair if her L leg is extended without difficulty, using her hands. Not good with her ex's yesterday. PT-OP-G Mobility & Gait Start: 05/09/22 16:15 Freq: Status: Active Protocol: Document 05/11/22 09:07 LRN (Rec: 05/11/22 09:47 LRN [id number]) OP Mobility Evaluation Bed Mobility Supine to and from Sit Independent with use of strap to help lift the LLE off the bed. Transfers Sit to Stand Independent with use of hands and FWW from higher surface. OP Gait Assessment Gait Gait Assistance Required: Independent Able to Maintain Weight Bearing Status Yes During Gait Assistive Devices Assistive Device Front Wheeled Walker Gait Deviations General Gait Pattern Antalgic,Decreased Stride Length,Flexed Trunk,Step-to Gait Stair Climbing Evaluation Devices Stair Climbing Assistive Devices Right Railing Technique/Endurance Stair Climbing Direction Ascend and Descend Stair Climbing Technique Step to Step Comments Stair Climbing Comments Ascending railing on R, Walking stick on L. PT-OP-H Neuro Start: 05/09/22 16:15 Freq: Status: Active Protocol: Document 05/11/22 09:07 LRN (Rec: 05/11/22 09:47 LRN [id number]) Sensation Evaluation Comments Summary Comments Sensation intact to soft touch in areas not covered by bandage. PT-OP-J Posture/Palpation/Skin Start: 05/09/22 16:15 Freq: Status: Active Protocol: Document 05/11/22 09:07 LRN (Rec: 05/11/22 09:47 LRN [id number]) Posture Evaluation Position Standing L-Spine Posture Flattened Weight Distribution Weight Shifted Right Hip Posture (L) Flexed,(R) Flexed Comments Posture Comments Pt assessed with use of FWW for balance support. Palpation Assessment Location L knee Palpation Location Areas around scar protective bandage. Palpation Details Sensation intact. Skin Assessment Other Assessments Skin Assessment Comments Patient wearing thigh-high MIRELA hose left LE. Pt incision covered with protective bandage. PT-OP-K Range of Motion Start: 05/09/22 16:15 Freq: Status: Active Protocol: Document 05/28/22 08:57 LRN (Rec: 05/28/22 09:48 LRN [id number]) Knee Goniometric Range of Motion Knee Left Patient Position Supine Flexion Active (degrees) 108 Extension Active (degrees) 4 PT-OP-M Strength Start: 05/09/22 16:15 Freq: Status: Active Protocol: Document 05/11/22 09:07 LRN (Rec: 05/11/22 09:47 [facility] [id number]) Hip Strength Hip Manual Muscle Testing Right Flexion (L2) 5 Normal Left Flexion (L2) 2 Poor Knee Strength Knee Manual Muscle Testing Right Flexion (S2) 5 Normal Extension (L3) 5 Normal Left Flexion (S2) 2 Poor Extension (L3) 2- Poor- Ankle/Foot Strength Ankle and Foot Manual Muscle Testing Right Dorsiflexion (L4) 5 Normal Plantarflexion (S1) 5 Normal Inversion 5 Normal Eversion (S1) 5 Normal Left Dorsiflexion (L4) 5 Normal Plantarflexion (S1) 5 Normal Inversion 5 Normal Eversion (S1) 5 Normal PT-OP-Q Treatments Start: 05/09/22 16:15 Freq: Status: Active Protocol: Document 05/28/22 09:03 LRN (Rec: 05/28/22 09:47 LR [id number]) Cardio Equipment Recumbent Stepper (Sci-Fit) Duration (Minutes) 16 Resistance 3 Seat Position 13 (8') > 12 (3') > 11 (3') > 19 (2') Other LIke her Nustep @ home. Therapeutic Exercises Supine Exercises Deep Breathing Supine Exercise Name Training and for - lymph ex program Reps/Minutes 15x Comments Much training with phys, v., self phys cuing needed. SAQ Supine Exercise Name SAQ - lymph ex program Side left Reps/Minutes 10x Heel slides Supine Exercise Name Heel slides - lymph ex program Side left Reps/Minutes 10x QS Supine Exercise Name L QS Side left Reps/Minutes 10 SH x 10 Comments Cuing behind the knee to push and @ quads to contract Sitting Exercises Knee flex/Ext Sitting Exercise Name AROM stretch Side left Reps/Minutes 1-2 SH x 10 Knee flex Sitting Exercise Name Active knee flex - Kick head Side left Reps/Minutes 5x2 Knee ext Sitting Exercise Name Active knee ext - Kick Head Off Side left Reps/Minutes 5x Self-Care/Home Management Treatment Education Patient Education Pain Management Other Education Pt briefly educated in edema/ pain management with the RICE program. Activities Self-Care/Home Management Activities Issued & briefly reviewed self care of RICE program for pain management. PT-OP-R Modalities Start: 05/09/22 16:15 Freq: Status: Active Protocol: Document 05/25/22 08:57 NBM (Rec: 05/25/22 09:50 NBM [id number]) Hot Pack/Cold Pack Treatment Cold Pack Location L knee Treatment Duration (minutes) 10 Patient Tolerance Good Comments Legs up on bolster PT-OP-T Assessment and Plan Start: 05/09/22 16:15 Freq: Status: Active Protocol: Document 05/28/22 09:03 LRN (Rec: 05/28/22 09:47 LRN [id number]) Physical Therapy Assessment Goals Four Impairment L knee/hip weakness Impairment L knee strength: Flexion 2/5, Extension 2-/5 R knee strength: Flex/Ext is 5/5 Short Term Goal (STG) Improve L knee strength to at least 3+/5, with pt able to transfer out of bed without the use of a strap to move the LLE. STG Duration 06/26/22 Retirement Goal (LTG) Improve L knee strength to at least 4+/5 to allow patient to ambulate stairs with a normal gait. LTG Duration 08/09/22 Three Impairment Decreased L knee AROM Impairment L knee AROM (deg's): 30-58, PROM (deg's): 6-70 R knee AROM (deg's): 6-116, PROM (deg's): 0 deg's extension. Short Term Goal (STG) Improve L knee PROM to 5-120 STG Duration 06/26/22 Buggy Runner Goal (LTG) Improve L knee PROM to 0-125 LTG Duration 08/09/22 Two Impairment gait dysfunction Impairment Pt ambs with FWW, antalgic gait, lacks L ankle/knee mobility Short Term Goal (STG) Patient able to ambulate household distances with cane with min to no limp on level surfaces. STG Duration 06/26/22 Retirement Goal (LTG) Pt will ambulate with a normal gait or very minimal antalgic gait without an assistive device. LTG Duration 08/09/22 One Impairment Lacks self care HEP Impairment patient requires use of FWW for gait and ambulates with stiff knee, antalgic gait Short Term Goal (STG) Pt will be educated in edema management. 3/2/23: Educated pt in RICE program. STG Duration 05/15/22 (05/28/22: MET GOAL) Buggy Runner Goal (LTG) Pt will be independent with a self care HEP of L knee, ankle , hip ROM/strengthening ex's to address areas of deficit. LTG Duration 08/09/22 Assessment Summary Assessment Pt moves slowly through ex's, painful today from her causing more L knee pain when trying to put her socks on with ankle crossed over her opp knee. Pt understands better now precaution of twisting at the knee. Pt having medial knee pain with ex's, needing manual stabilization at times. Pt appears to have a good understanding of use of cold pack for pain, but living situation make it difficult for her to have independent access to ice. Physical Therapy Plan Frequency and Duration Frequency of Treatment 2x/Week Plan of Care Start Date 05/11/22 Plan of Care End Date 08/09/22 Next Visit Focus/Plan Next Note Type Treatment Note Next Visit Plan Review transfer training for independence. L knee ROM, L ankle DF stretching, L hip strengthening. Stair training when appropriate mobiltiy achieved. Progress HEP as tolerated including consider adding standing heel raises and marching. Modalities for pain management .
--- NOTE | 2022-06-01 12:29 | PT.OTN ---
Current Diagnoses Unilateral primary osteoarthritis, left knee (06/01/22) Physical Therapy Treatment Note PT-OP-A Visit Information Start: 05/09/22 16:15 Freq: Status: Active Protocol: Document 06/01/22 09:10 NBM (Rec: 06/01/22 09:53 NBM [id number]) Out-Patient Physical Therapy Visit Information Visit Information Visit Type Treatment Note Visit Start Time 09:04 Visit Stop Time 09:51 Total Visit Minutes 47 Visit Number 6 Number of WRITER Visits 1 Evaluation Information Evaluation Date 05/11/22 Precautions Precautions Cardiac arrhythmia s/p surgery , and being assessed for Cardiac arrhythmia. R TKA -rehab ending 02/13/22. PT-OP-B Current Condition Start: 05/09/22 16:15 Freq: Status: Active Protocol: Document 05/11/22 09:07 LRN (Rec: 05/11/22 09:47 LRN [id number]) Current Condition History of Current Condition Onset Date 04/27/22 Current Complaints Lack of L knee rom, pain-reqs med, hamstring tight, antalgic gt-FWW. History of Current Condition Pt is s/p L TKA on 04/27/22 and was in hospital 1 day but due to onset of A.Fib was kept in recovery for a few more hours . Wore a heart monitor for a week with removal tomorrow. States with her R TKA she had sinus arrythmia, otherwise no history of cardiac issues. Prior Treatments and Tests Eval and 3 treatments immediately after her TKA in [facility] prior to transfer to [facility]. PT was Reny Downs DPT. Future Testing and Treatments Planned Mine Environmental Engineer appt tomorrow. Treatment Goals Patient/Caregiver Goals Pt goals: - walk correctly without an assistive device. - Stairs with normal gait. - Transfer without assist of strap. Personal Factors Other Personal Factors That May Effect Pt s/p R TKA 12/10/21 with last Therapy/Recovery rehab treatment 02/13/22, ending with difficulty with sit to stand from lower surfaces. Pt being assessed currently for Cardiac arrhythmia. PT-OP-C Subjective Start: 05/09/22 16:15 Freq: Status: Active Protocol: Document 06/01/22 09:10 NBM (Rec: 06/01/22 09:53 NBM [id number]) OP-PT Subjective Patient Comments Patient Comments Pt states pain is lessening and she did most of her ex's yesterday. She doesn't need the strap now to do the straight leg raise or the heel slide when she uses breathwork, and it's without groin pain. She turned onto her R side and got pain in her L leg this morning - she didn 't have a pillow between her legs and thought she should. Pt tried using crutch in R arm because she doesn't want to use the walker for getting out and about or for son's wedding August 08 and she thought she did okay. Pt sees ortho surgeon next Wednesday for 6 wk follow up. PT-OP-G Mobility & Gait Start: 05/09/22 16:15 Freq: Status: Active Protocol: Document 05/11/22 09:07 LRN (Rec: 05/11/22 09:47 LRN [id number]) OP Mobility Evaluation Bed Mobility Supine to and from Sit Independent with use of strap to help lift the LLE off the bed. Transfers Sit to Stand Independent with use of hands and FWW from higher surface. OP Gait Assessment Gait Gait Assistance Required: Independent Able to Maintain Weight Bearing Status Yes During Gait Assistive Devices Assistive Device Front Wheeled Walker Gait Deviations General Gait Pattern Antalgic,Decreased Stride Length,Flexed Trunk,Step-to Gait Stair Climbing Evaluation Devices Stair Climbing Assistive Devices Right Railing Technique/Endurance Stair Climbing Direction Ascend and Descend Stair Climbing Technique Step to Step Comments Stair Climbing Comments Ascending railing on R, Walking stick on L. PT-OP-H Neuro Start: 05/09/22 16:15 Freq: Status: Active Protocol: Document 05/11/22 09:07 LRN (Rec: 05/11/22 09:47 LRN [id number]) Sensation Evaluation Comments Summary Comments Sensation intact to soft touch in areas not covered by bandage. PT-OP-J Posture/Palpation/Skin Start: 05/09/22 16:15 Freq: Status: Active Protocol: Document 05/11/22 09:07 LRN (Rec: 05/11/22 09:47 LRN [id number]) Posture Evaluation Position Standing L-Spine Posture Flattened Weight Distribution Weight Shifted Right Hip Posture (L) Flexed,(R) Flexed Comments Posture Comments Pt assessed with use of FWW for balance support. Palpation Assessment Location L knee Palpation Location Areas around scar protective bandage. Palpation Details Sensation intact. Skin Assessment Other Assessments Skin Assessment Comments Patient wearing thigh-high MIRELA hose left LE. Pt incision covered with protective bandage. PT-OP-K Range of Motion Start: 05/09/22 16:15 Freq: Status: Active Protocol: Document 05/28/22 08:57 LRN (Rec: 05/28/22 09:48 LRN [id number]) Knee Goniometric Range of Motion Knee Left Patient Position Supine Flexion Active (degrees) 108 Extension Active (degrees) 4 PT-OP-M Strength Start: 05/09/22 16:15 Freq: Status: Active Protocol: Document 05/11/22 09:07 LRN (Rec: 05/11/22 09:47 LRN [id number]) Hip Strength Hip Manual Muscle Testing Right Flexion (L2) 5 Normal Left Flexion (L2) 2 Poor Knee Strength Knee Manual Muscle Testing Right Flexion (S2) 5 Normal Extension (L3) 5 Normal Left Flexion (S2) 2 Poor Extension (L3) 2- Poor- Ankle/Foot Strength Ankle and Foot Manual Muscle Testing Right Dorsiflexion (L4) 5 Normal Plantarflexion (S1) 5 Normal Inversion 5 Normal Eversion (S1) 5 Normal Left Dorsiflexion (L4) 5 Normal Plantarflexion (S1) 5 Normal Inversion 5 Normal Eversion (S1) 5 Normal PT-OP-Q Treatments Start: 05/09/22 16:15 Freq: Status: Active Protocol: Document 06/01/22 09:10 NBM (Rec: 06/01/22 09:53 NBM [id number]) Cardio Equipment Recumbent Elliptical (Biodex) Duration (Minutes) 10 Resistance 1 Seat Position 13 (seen) Therapeutic Exercises Supine Exercises Deep Breathing Supine Exercise Name Training and for - lymph ex program Reps/Minutes 15x Comments Much training with phys, v., self phys cuing needed. Ankle mvmts Supine Exercise Name Ankle mvmts IV/EV - lymph ex program SAQ Supine Exercise Name SAQ - lymph ex program Side left Reps/Minutes 10x Comments 5 Denzel first for neurofeedback. Hip AB Supine Exercise Name BKFO - lymph ex program Side left Reps/Minutes 10x Heel slides Supine Exercise Name Heel slides - lymph ex program Side bilateral Reps/Minutes 10x Comments training w/breathing. SLR Supine Exercise Name SLR - lymph ex program Side left Reps/Minutes 10x 2 Comments training w/breathing. QS Supine Exercise Name L QS Side left Reps/Minutes 10 SH x 10 Comments Cuing behind the knee to push and @ quads to contract Sitting Exercises Knee flex Sitting Exercise Name Active knee flex - Kick head Side left Reps/Minutes 5x2 Knee ext Sitting Exercise Name Active knee ext - Kick Head Off Side left Reps/Minutes 5x Gait Training Gait Activity Gait w/FWW Description Gait for heelstrike, equal step lengths and toe off Device Used FWW Level of Assistance V cuing Surface Level Distance/Duration 4x20 w/ mirror, 4 x 20' without, clinic lapsx2 Treatment Focus even step length in walker, upright posture, hip width steps Self-Care/Home Management Treatment Education Patient Education Home Exercise Program,Joint Protection,Pain Management, Posture,Safety Other Education Reviewed scar tissue massage, and scapular squeeze for upright posture with FWW. PT-OP-R Modalities Start: 05/09/22 16:15 Freq: Status: Active Protocol: Document 05/25/22 08:57 NBM (Rec: 05/25/22 09:50 [facility] [id number]) Hot Pack/Cold Pack Treatment Cold Pack Location L knee Treatment Duration (minutes) 10 Patient Tolerance Good Comments Legs up on bolster PT-OP-T Assessment and Plan Start: 05/09/22 16:15 Freq: Status: Active Protocol: Document 06/01/22 09:10 NBM (Rec: 06/01/22 09:53 [facility] [id number]) Physical Therapy Assessment Impairments Impairments Activity Tolerance,Balance, Gait,Pain,ROM,Sensation,Soft Tissue Mobility,Strength Goals Four Impairment L knee/hip weakness Impairment L knee strength: Flexion 2/5, Extension 2-/5 R knee strength: Flex/Ext is 5/5 Short Term Goal (STG) Improve L knee strength to at least 3+/5, with pt able to transfer out of bed without the use of a strap to move the LLE. STG Duration 06/26/22 Alf Goal (LTG) Improve L knee strength to at least 4+/5 to allow patient to ambulate stairs with a normal gait. LTG Duration 08/09/22 Three Impairment Decreased L knee AROM Impairment L knee AROM (deg's): 30-58, PROM (deg's): 6-70 R knee AROM (deg's): 6-116, PROM (deg's): 0 deg's extension. Short Term Goal (STG) Improve L knee PROM to 5-120 STG Duration 06/26/22 Business Services Associate Goal (LTG) Improve L knee PROM to 0-125 LTG Duration 08/09/22 Two Impairment gait dysfunction Impairment Pt ambs with FWW, antalgic gait, lacks L ankle/knee mobility Short Term Goal (STG) Patient able to ambulate household distances with cane with min to no limp on level surfaces. 06/01/22: Pt walks with antalgic gait with FWW. STG Duration 06/26/22 Business Services Associate Goal (LTG) Pt will ambulate with a normal gait or very minimal antalgic gait without an assistive device. LTG Duration 08/09/22 One Impairment Lacks self care HEP Impairment patient requires use of FWW for gait and ambulates with stiff knee, antalgic gait Short Term Goal (STG) Pt will be educated in edema management. 05/28/22: Educated pt in RICE program. STG Duration 05/15/22 (05/28/22: MET GOAL) Business Services Associate Goal (LTG) Pt will be independent with a self care HEP of L knee, ankle , hip ROM/strengthening ex's to address areas of deficit. LTG Duration 08/09/22 Assessment Summary Assessment Pt is cued occasionally to maintain L knee alignment with supine flexion and extension. Pt is able to perform straight leg raise and heel slides with breathwork without strap. Reviewed scar tissue massage, and scapular squeeze for upright posture w/ FWW. Pt still demonstrates antalgic gait wtih FWW and is cued for even step length in walker, upright posture, hip width steps and walker proximation, and is encouraged to continue use of FWW for Assistive device at this time- she will bring in bilateral trekking poles and FWW to next appointment for further gait training as pt does not want to use FWW for son's wedding August 08. Pt sees ortho surgeon next Wednesday for 6 wk follow up. Pt needs occasional reminders for HEP exercises at home as she forgot about knee flexion w/ cervical flexion and extension exercises. Physical Therapy Plan Frequency and Duration Frequency of Treatment 2x/Week Plan of Care Start Date 05/11/22 Plan of Care End Date 08/09/22 Therapeutic Interventions Therapeutic Interventions Balance Training,Gait Training ,Home Exercise Program,Manual Therapy,Patient/Caregiver Education,Self-Care/Home Management,Soft Tissue Mobilization,Taping, Therapeutic Activities, Therapeutic Exercises Modalities Cold Pack/Ice Massage,Hot Packs Next Visit Focus/Plan Next Note Type Treatment Note Next Visit Plan Pt to bring bilateral trekking poles and FWW for further gait training to next visit. POC: Review transfer training for independence. L knee ROM, L ankle DF stretching, L hip strengthening. Stair training when appropriate mobiltiy achieved. Progress HEP as tolerated including consider adding standing heel raises and marching. Modalities for pain management .
--- NOTE | 2022-06-05 17:10 | PT.OTN ---
Current Diagnoses Unilateral primary osteoarthritis, left knee (06/05/22) Physical Therapy Treatment Note PT-OP-A Visit Information Start: 05/09/22 16:15 Freq: Status: Active Protocol: Document 06/05/22 10:34 LRN (Rec: 06/05/22 11:21 LRN [id number]) Out-Patient Physical Therapy Visit Information Visit Information Visit Type Treatment Note Visit Start Time 10:34 Visit Stop Time 11:13 Total Visit Minutes 39 Visit Number 7 Evaluation Information Evaluation Date 05/11/22 Precautions Precautions Cardiac arrhythmia s/p surgery , and being assessed for Cardiac arrhythmia. R TKA -rehab ending 02/13/22. PT-OP-B Current Condition Start: 05/09/22 16:15 Freq: Status: Active Protocol: Document 05/11/22 09:07 LRN (Rec: 05/11/22 09:47 LRN [id number]) Current Condition History of Current Condition Onset Date 04/27/22 Current Complaints Lack of L knee rom, pain-reqs med, hamstring tight, antalgic gt-FWW. History of Current Condition Pt is s/p L TKA on 04/27/22 and was in hospital 1 day but due to onset of A.Fib was kept in recovery for a few more hours . Wore a heart monitor for a week with removal tomorrow. States with her R TKA she had sinus arrythmia, otherwise no history of cardiac issues. Prior Treatments and Tests Eval and 3 treatments immediately after her TKA in [facility] prior to transfer to [facility]. PT was Reny Downs DPT. Future Testing and Treatments Planned Plycor Operator appt tomorrow. Treatment Goals Patient/Caregiver Goals Pt goals: - walk correctly without an assistive device. - Stairs with normal gait. - Transfer without assist of strap. Personal Factors Other Personal Factors That May Effect Pt s/p R TKA 12/10/21 with last Therapy/Recovery rehab treatment 02/13/22, ending with difficulty with sit to stand from lower surfaces. Pt being assessed currently for Cardiac arrhythmia. PT-OP-C Subjective Start: 05/09/22 16:15 Freq: Status: Active Protocol: Document 06/05/22 10:34 LRN (Rec: 06/05/22 11:21 LRN [id number]) OP-PT Subjective Patient Comments Patient Comments Seeing physician Eliz. States she has progressed to walking with a crutch. PT-OP-G Mobility & Gait Start: 05/09/22 16:15 Freq: Status: Active Protocol: Document 05/11/22 09:07 LRN (Rec: 05/11/22 09:47 LRN [id number]) OP Mobility Evaluation Bed Mobility Supine to and from Sit Independent with use of strap to help lift the LLE off the bed. Transfers Sit to Stand Independent with use of hands and FWW from higher surface. OP Gait Assessment Gait Gait Assistance Required: Independent Able to Maintain Weight Bearing Status Yes During Gait Assistive Devices Assistive Device Front Wheeled Walker Gait Deviations General Gait Pattern Antalgic,Decreased Stride Length,Flexed Trunk,Step-to Gait Stair Climbing Evaluation Devices Stair Climbing Assistive Devices Right Railing Technique/Endurance Stair Climbing Direction Ascend and Descend Stair Climbing Technique Step to Step Comments Stair Climbing Comments Ascending railing on R, Walking stick on L. PT-OP-H Neuro Start: 05/09/22 16:15 Freq: Status: Active Protocol: Document 05/11/22 09:07 LRN (Rec: 05/11/22 09:47 LRN [id number]) Sensation Evaluation Comments Summary Comments Sensation intact to soft touch in areas not covered by bandage. PT-OP-J Posture/Palpation/Skin Start: 05/09/22 16:15 Freq: Status: Active Protocol: Document 05/11/22 09:07 LRN (Rec: 05/11/22 09:47 LRN [id number]) Posture Evaluation Position Standing L-Spine Posture Flattened Weight Distribution Weight Shifted Right Hip Posture (L) Flexed,(R) Flexed Comments Posture Comments Pt assessed with use of FWW for balance support. Palpation Assessment Location L knee Palpation Location Areas around scar protective bandage. Palpation Details Sensation intact. Skin Assessment Other Assessments Skin Assessment Comments Patient wearing thigh-high MIRELA hose left LE. Pt incision covered with protective bandage. PT-OP-K Range of Motion Start: 05/09/22 16:15 Freq: Status: Active Protocol: Document 05/28/22 08:57 LRN (Rec: 05/28/22 09:48 LRN [id number]) Knee Goniometric Range of Motion Knee Left Patient Position Supine Flexion Active (degrees) 108 Extension Active (degrees) 4 PT-OP-M Strength Start: 05/09/22 16:15 Freq: Status: Active Protocol: Document 05/11/22 09:07 LRN (Rec: 05/11/22 09:47 LRN [id number]) Hip Strength Hip Manual Muscle Testing Right Flexion (L2) 5 Normal Left Flexion (L2) 2 Poor Knee Strength Knee Manual Muscle Testing Right Flexion (S2) 5 Normal Extension (L3) 5 Normal Left Flexion (S2) 2 Poor Extension (L3) 2- Poor- Ankle/Foot Strength Ankle and Foot Manual Muscle Testing Right Dorsiflexion (L4) 5 Normal Plantarflexion (S1) 5 Normal Inversion 5 Normal Eversion (S1) 5 Normal Left Dorsiflexion (L4) 5 Normal Plantarflexion (S1) 5 Normal Inversion 5 Normal Eversion (S1) 5 Normal PT-OP-Q Treatments Start: 05/09/22 16:15 Freq: Status: Active Protocol: Document 06/05/22 10:34 LRN (Rec: 06/05/22 11:21 LRN [id number]) Cardio Equipment Recumbent Stepper (Sci-Fit) Duration (Minutes) 12 Resistance 1 Seat Position 13 x 2', 11 x Therapeutic Exercises Supine Exercises Knee flex stretch Supine Exercise Name Holding stretch w/ankle PF/DF/ hip ER Side left Reps/Minutes 5x each, 2 sets. Heel slides Supine Exercise Name Heel slides - no holding Reps/Minutes 30x SLR Supine Exercise Name SLR Side left Reps/Minutes 10x 2, 2x Comments training w/breathing. QS Supine Exercise Name L QS Side left Reps/Minutes 3 breaths x 10 Comments Cuing quads to contract & relax ankle DF's. Prone Exercises Femoral n. tensioner Prone Exercise Name Kick head down>head lift/knee ext > same w/ankle DF Side left Reps/Minutes 5x 3 Hip Ext Prone Exercise Name Hip Ext Side bilateral Reps/Minutes 8x Sitting Exercises Knee flex Sitting Exercise Name Active knee flex - Kick head Side left Reps/Minutes 5x2 Knee ext Sitting Exercise Name Active knee ext - Kick Head Off Side left Reps/Minutes 5x2 Gait Training Gait Activity Gait w/one crutch Description Gt keeping R shldr down as WBing through arm. Device Used 1 crutch Surface level, firm Distance/Duration 25 ft Treatment Focus Proper gait with crutch Comments Adjusted hand paper machine back tender to proper setting, 1 hole lower than when started. Self-Care/Home Management Treatment Education Patient Education Home Exercise Program Activities Self-Care/Home Management Activities Issued & reviewed HEP: Femoral n. tension alternating with mvmt w/ankle DF. PT-OP-R Modalities Start: 05/09/22 16:15 Freq: Status: Active Protocol: Document 05/25/22 08:57 NBM (Rec: 05/25/22 09:50 NBM [id number]) Hot Pack/Cold Pack Treatment Cold Pack Location L knee Treatment Duration (minutes) 10 Patient Tolerance Good Comments Legs up on bolster PT-OP-T Assessment and Plan Start: 05/09/22 16:15 Freq: Status: Active Protocol: Document 06/05/22 10:34 LRN (Rec: 06/05/22 11:21 LRN [id number]) Physical Therapy Assessment Goals Four Impairment L knee/hip weakness Impairment L knee strength: Flexion 2/5, Extension 2-/5 R knee strength: Flex/Ext is 5/5 Short Term Goal (STG) Improve L knee strength to at least 3+/5, with pt able to transfer out of bed without the use of a strap to move the LLE. 06/05/22: Pt moving LLE independent from R and use of UE's. STG Duration 06/26/22 (06/05/22: MET GOAL) Usp Goal (LTG) Improve L knee strength to at least 4+/5 to allow patient to ambulate stairs with a normal gait. LTG Duration 08/09/22 Three Impairment Decreased L knee AROM Impairment L knee AROM (deg's): 30-58, PROM (deg's): 6-70 R knee AROM (deg's): 6-116, PROM (deg's): 0 deg's extension. Short Term Goal (STG) Improve L knee PROM to 5-120 STG Duration 06/26/22 Machine Design Teacher Goal (LTG) Improve L knee PROM to 0-125 LTG Duration 08/09/22 Two Impairment gait dysfunction Impairment Pt ambs with FWW, antalgic gait, lacks L ankle/knee mobility Short Term Goal (STG) Patient able to ambulate household distances with cane with min to no limp on level surfaces. 06/01/22: Pt walks with antalgic gait with FWW. STG Duration 06/26/22 Usp Goal (LTG) Pt will ambulate with a normal gait or very minimal antalgic gait without an assistive device. LTG Duration 08/09/22 One Impairment Lacks self care HEP Impairment patient requires use of FWW for gait and ambulates with stiff knee, antalgic gait Short Term Goal (STG) Pt will be educated in edema management. 05/28/22: Educated pt in RICE program. STG Duration 05/15/22 (05/28/22: MET GOAL) Machine Design Teacher Goal (LTG) Pt will be independent with a self care HEP of L knee, ankle , hip ROM/strengthening ex's to address areas of deficit. 06/05/22: HEP: Femoral n. tensioner. Review of previous issued Sciatic n. slider/ tensioner. LTG Duration 08/09/22 progressed 06/05/22 Assessment Summary Assessment Pt ambulated with much better posture after crutch adjustment for hgt. Pt knee ext lacks 3 deg's, has been using ankle DF's to obtain knee ext vs quads; therefore pt needing more quad cuing and less involvement of anterior tib. Good tolerance to femoral n. stretch. Pt is very weak in hip ext, AB, flex . Physical Therapy Plan Frequency and Duration Frequency of Treatment 2x/Week Plan of Care Start Date 05/11/22 Plan of Care End Date 08/09/22 Next Visit Focus/Plan Next Note Type Treatment Note Next Visit Plan Next: Assess for pt f/u visit with MD [place]. POC: Review transfer training for independence. L knee ROM, L ankle DF stretching, L hip strengthening. Stair training when appropriate mobiltiy achieved. Progress HEP as tolerated including consider adding standing heel raises and marching. Modalities for pain management .
--- NOTE | 2022-06-08 09:46 | PT.OTN ---
Current Diagnoses Unilateral primary osteoarthritis, left knee (06/08/22) Physical Therapy Treatment Note PT-OP-A Visit Information Start: 05/09/22 16:15 Freq: Status: Active Protocol: Document 06/08/22 09:00 NBM (Rec: 06/08/22 09:42 NBM [id number]) Out-Patient Physical Therapy Visit Information Visit Information Visit Type Treatment Note Visit Start Time 09:00 Visit Stop Time 09:42 Total Visit Minutes 40 Visit Number 8 Number of AUTOMATIC BUFFING WHEEL FORMER Visits 1 Evaluation Information Evaluation Date 05/11/22 Precautions Precautions Cardiac arrhythmia s/p surgery , and being assessed for Cardiac arrhythmia. R TKA -rehab ending 02/13/22. PT-OP-B Current Condition Start: 05/09/22 16:15 Freq: Status: Active Protocol: Document 05/11/22 09:07 LRN (Rec: 05/11/22 09:47 LRN [id number]) Current Condition History of Current Condition Onset Date 04/27/22 Current Complaints Lack of L knee rom, pain-reqs med, hamstring tight, antalgic gt-FWW. History of Current Condition Pt is s/p L TKA on 04/27/22 and was in hospital 1 day but due to onset of A.Fib was kept in recovery for a few more hours . Wore a heart monitor for a week with removal tomorrow. States with her R TKA she had sinus arrythmia, otherwise no history of cardiac issues. Prior Treatments and Tests Eval and 3 treatments immediately after her TKA in [facility] prior to transfer to [facility]. PT was Reny Downs DPT. Future Testing and Treatments Planned Bartender Helper appt tomorrow. Treatment Goals Patient/Caregiver Goals Pt goals: - walk correctly without an assistive device. - Stairs with normal gait. - Transfer without assist of strap. Personal Factors Other Personal Factors That May Effect Pt s/p R TKA 12/10/21 with last Therapy/Recovery rehab treatment 02/13/22, ending with difficulty with sit to stand from lower surfaces. Pt being assessed currently for Cardiac arrhythmia. PT-OP-C Subjective Start: 05/09/22 16:15 Freq: Status: Active Protocol: Document 06/08/22 09:00 NBM (Rec: 06/08/22 09:42 NBM [id number]) OP-PT Subjective Patient Comments Patient Comments Pt reports it's really tight this morning about L knee. She feels she stands up straighter w/ crutch in RUE, and bought her own walking sticks. 6 week post-op tomorrow. PT-OP-G Mobility & Gait Start: 05/09/22 16:15 Freq: Status: Active Protocol: Document 05/11/22 09:07 LRN (Rec: 05/11/22 09:47 LRN [id number]) OP Mobility Evaluation Bed Mobility Supine to and from Sit Independent with use of strap to help lift the LLE off the bed. Transfers Sit to Stand Independent with use of hands and FWW from higher surface. OP Gait Assessment Gait Gait Assistance Required: Independent Able to Maintain Weight Bearing Status Yes During Gait Assistive Devices Assistive Device Front Wheeled Walker Gait Deviations General Gait Pattern Antalgic,Decreased Stride Length,Flexed Trunk,Step-to Gait Stair Climbing Evaluation Devices Stair Climbing Assistive Devices Right Railing Technique/Endurance Stair Climbing Direction Ascend and Descend Stair Climbing Technique Step to Step Comments Stair Climbing Comments Ascending railing on R, Walking stick on L. PT-OP-H Neuro Start: 05/09/22 16:15 Freq: Status: Active Protocol: Document 05/11/22 09:07 LRN (Rec: 05/11/22 09:47 LRN [id number]) Sensation Evaluation Comments Summary Comments Sensation intact to soft touch in areas not covered by bandage. PT-OP-J Posture/Palpation/Skin Start: 05/09/22 16:15 Freq: Status: Active Protocol: Document 05/11/22 09:07 LRN (Rec: 05/11/22 09:47 LRN [id number]) Posture Evaluation Position Standing L-Spine Posture Flattened Weight Distribution Weight Shifted Right Hip Posture (L) Flexed,(R) Flexed Comments Posture Comments Pt assessed with use of FWW for balance support. Palpation Assessment Location L knee Palpation Location Areas around scar protective bandage. Palpation Details Sensation intact. Skin Assessment Other Assessments Skin Assessment Comments Patient wearing thigh-high MIRELA hose left LE. Pt incision covered with protective bandage. PT-OP-K Range of Motion Start: 05/09/22 16:15 Freq: Status: Active Protocol: Document 06/08/22 09:00 NBM (Rec: 06/08/22 09:45 NB [id number]) Knee Goniometric Range of Motion Knee Left Patient Position Supine Flexion Active (degrees) 111 Flexion Passive (degrees) 115 Extension Active (degrees) 3 PT-OP-M Strength Start: 05/09/22 16:15 Freq: Status: Active Protocol: Document 05/11/22 09:07 LRN (Rec: 05/11/22 09:47 LRN [id number]) Hip Strength Hip Manual Muscle Testing Right Flexion (L2) 5 Normal Left Flexion (L2) 2 Poor Knee Strength Knee Manual Muscle Testing Right Flexion (S2) 5 Normal Extension (L3) 5 Normal Left Flexion (S2) 2 Poor Extension (L3) 2- Poor- Ankle/Foot Strength Ankle and Foot Manual Muscle Testing Right Dorsiflexion (L4) 5 Normal Plantarflexion (S1) 5 Normal Inversion 5 Normal Eversion (S1) 5 Normal Left Dorsiflexion (L4) 5 Normal Plantarflexion (S1) 5 Normal Inversion 5 Normal Eversion (S1) 5 Normal PT-OP-Q Treatments Start: 05/09/22 16:15 Freq: Status: Active Protocol: Document 06/08/22 09:00 NBM (Rec: 06/08/22 09:42 NB [id number]) Cardio Equipment Bicycle (Upright) Duration (Minutes) 9 Resistance 1>4 Seat Position 6 Other vc to rock fwd/bwd due to reported tightness Therapeutic Exercises Supine Exercises Knee flex stretch Supine Exercise Name Holding stretch w/ankle PF/DF/ hip ER Side left Reps/Minutes 5x each, 2 sets. Heel slides Supine Exercise Name Heel slides - no holding Reps/Minutes 30x SLR Supine Exercise Name SLR Side left Reps/Minutes 10x 2, 2x Comments training w/breathing, NMF QS Supine Exercise Name L QS Side left Reps/Minutes 3 breaths x 10 Comments Cuing quads to contract & relax ankle DF's. Prone Exercises Femoral n. tensioner Prone Exercise Name Kick head down>head lift/knee ext > same w/ankle DF Side left Reps/Minutes 5x 3 Hip Ext Prone Exercise Name Hip Ext Side bilateral Reps/Minutes 10x Sitting Exercises Knee flex Sitting Exercise Name Active knee flex - Kick head Side left Reps/Minutes 5x2 Knee ext Sitting Exercise Name Active knee ext - Kick Head Off Side left Reps/Minutes 5x2 Gait Training Gait Activity Gait w/one crutch Description Gt keeping R shldr down as WBing through arm. Device Used 1 crutch Surface level, firm Distance/Duration 25 ft Treatment Focus Proper gait with crutch Comments Pt educated not to rest crutch in axilla, and to squeeze against side instead. Cues for form and glute activation through LLE w/ increased knee flexion in stance PT-OP-R Modalities Start: 05/09/22 16:15 Freq: Status: Active Protocol: Document 05/25/22 08:57 NBM (Rec: 05/25/22 09:50 NBM [id number]) Hot Pack/Cold Pack Treatment Cold Pack Location L knee Treatment Duration (minutes) 10 Patient Tolerance Good Comments Legs up on bolster PT-OP-T Assessment and Plan Start: 05/09/22 16:15 Freq: Status: Active Protocol: Document 06/08/22 09:00 NBM (Rec: 06/08/22 09:42 NB [id number]) Physical Therapy Assessment Impairments Impairments Activity Tolerance,Balance, Gait,Pain,ROM,Sensation,Soft Tissue Mobility,Strength Goals Four Impairment L knee/hip weakness Impairment L knee strength: Flexion 2/5, Extension 2-/5 R knee strength: Flex/Ext is 5/5 Short Term Goal (STG) Improve L knee strength to at least 3+/5, with pt able to transfer out of bed without the use of a strap to move the LLE. 06/05/22: Pt moving LLE independent from R and use of UE's. STG Duration 06/26/22 (06/05/22: MET GOAL) Mcc Goal (LTG) Improve L knee strength to at least 4+/5 to allow patient to ambulate stairs with a normal gait. LTG Duration 08/09/22 Three Impairment Decreased L knee AROM Impairment L knee AROM (deg's): 30-58, PROM (deg's): 6-70 R knee AROM (deg's): 6-116, PROM (deg's): 0 deg's extension. Short Term Goal (STG) Improve L knee PROM to 5-120 STG Duration 06/26/22 Ranch Rider Goal (LTG) Improve L knee PROM to 0-125 LTG Duration 08/09/22 Two Impairment gait dysfunction Impairment Pt ambs with FWW, antalgic gait, lacks L ankle/knee mobility Short Term Goal (STG) Patient able to ambulate household distances with cane with min to no limp on level surfaces. 06/01/22: Pt walks with antalgic gait with FWW. STG Duration 06/26/22 Ranch Rider Goal (LTG) Pt will ambulate with a normal gait or very minimal antalgic gait without an assistive device. LTG Duration 08/09/22 One Impairment Lacks self care HEP Impairment patient requires use of FWW for gait and ambulates with stiff knee, antalgic gait Short Term Goal (STG) Pt will be educated in edema management. 05/28/22: Educated pt in RICE program. STG Duration 05/15/22 (05/28/22: MET GOAL) Ranch Rider Goal (LTG) Pt will be independent with a self care HEP of L knee, ankle , hip ROM/strengthening ex's to address areas of deficit. 06/05/22: HEP: Femoral n. tensioner. Review of previous issued Sciatic n. slider/ tensioner. LTG Duration 08/09/22 progressed 06/05/22 Assessment Summary Assessment Pt almost able to make full revolution w/ L knee on upright bike after 10 min - visually past 95 deg. Initial supine AROM L knee flexion measurement ~83 deg, EOS ~111 deg, PROM ~115. AROM knee extension lacking 3 deg from normal. Pt educated not to rest crutch in axilla with gait, and to squeeze against side instead. Cues for form and glute activation through LLE w/ increased knee flexion during stance phase. Pt will ice at home. Physical Therapy Plan Frequency and Duration Frequency of Treatment 2x/Week Plan of Care Start Date 05/11/22 Plan of Care End Date 08/09/22 Therapeutic Interventions Therapeutic Interventions Balance Training,Gait Training ,Home Exercise Program,Manual Therapy,Patient/Caregiver Education,Self-Care/Home Management,Soft Tissue Mobilization,Taping, Therapeutic Activities, Therapeutic Exercises Modalities Cold Pack/Ice Massage,Hot Packs Next Visit Focus/Plan Next Note Type Treatment Note Next Visit Plan Next: Assess for pt f/u visit with MD [place]. POC: Review transfer training for independence. L knee ROM, L ankle DF stretching, L hip strengthening. Stair training when appropriate mobiltiy achieved. Progress HEP as tolerated including consider adding standing heel raises and marching. Modalities for pain management .
--- NOTE | 2022-06-11 09:04 | PT.OTN ---
Current Diagnoses Unilateral primary osteoarthritis, left knee (06/11/22) Physical Therapy Treatment Note PT-OP-A Visit Information Start: 05/09/22 16:15 Freq: Status: Active Protocol: Document 06/11/22 08:16 SP (Rec: 06/11/22 09:05 SP [id number]) Out-Patient Physical Therapy Visit Information Visit Information Visit Type Treatment Note Visit Start Time 08:16 Visit Stop Time 09:04 Total Visit Minutes 48 Visit Number 9 Number of REPORTING LEAD Visits 2 Evaluation Information Evaluation Date 05/11/22 Precautions Precautions Cardiac arrhythmia s/p surgery , and being assessed for Cardiac arrhythmia. R TKA -rehab ending 02/13/22. PT-OP-B Current Condition Start: 05/09/22 16:15 Freq: Status: Active Protocol: Document 05/11/22 09:07 LRN (Rec: 05/11/22 09:47 LRN [id number]) Current Condition History of Current Condition Onset Date 04/27/22 Current Complaints Lack of L knee rom, pain-reqs med, hamstring tight, antalgic gt-FWW. History of Current Condition Pt is s/p L TKA on 04/27/22 and was in hospital 1 day but due to onset of A.Fib was kept in recovery for a few more hours . Wore a heart monitor for a week with removal tomorrow. States with her R TKA she had sinus arrythmia, otherwise no history of cardiac issues. Prior Treatments and Tests Eval and 3 treatments immediately after her TKA in [facility] prior to transfer to [facility]. PT was Reny Downs DPT. Future Testing and Treatments Planned Business Data Analyst appt tomorrow. Treatment Goals Patient/Caregiver Goals Pt goals: - walk correctly without an assistive device. - Stairs with normal gait. - Transfer without assist of strap. Personal Factors Other Personal Factors That May Effect Pt s/p R TKA 12/10/21 with last Therapy/Recovery rehab treatment 02/13/22, ending with difficulty with sit to stand from lower surfaces. Pt being assessed currently for Cardiac arrhythmia. PT-OP-C Subjective Start: 05/09/22 16:15 Freq: Status: Active Protocol: Document 06/11/22 08:16 SP (Rec: 06/11/22 09:05 SP [id number]) OP-PT Subjective Patient Comments Patient Comments Pt reports saw ortho and pleased with progress of 115 deg L knee flexion but wanting to progress at least 120 deg. Has a follow up in 2 weeks. PT-OP-G Mobility & Gait Start: 05/09/22 16:15 Freq: Status: Active Protocol: Document 05/11/22 09:07 LRN (Rec: 05/11/22 09:47 LRN [id number]) OP Mobility Evaluation Bed Mobility Supine to and from Sit Independent with use of strap to help lift the LLE off the bed. Transfers Sit to Stand Independent with use of hands and FWW from higher surface. OP Gait Assessment Gait Gait Assistance Required: Independent Able to Maintain Weight Bearing Status Yes During Gait Assistive Devices Assistive Device Front Wheeled Walker Gait Deviations General Gait Pattern Antalgic,Decreased Stride Length,Flexed Trunk,Step-to Gait Stair Climbing Evaluation Devices Stair Climbing Assistive Devices Right Railing Technique/Endurance Stair Climbing Direction Ascend and Descend Stair Climbing Technique Step to Step Comments Stair Climbing Comments Ascending railing on R, Walking stick on L. PT-OP-H Neuro Start: 05/09/22 16:15 Freq: Status: Active Protocol: Document 05/11/22 09:07 LRN (Rec: 05/11/22 09:47 LRN [id number]) Sensation Evaluation Comments Summary Comments Sensation intact to soft touch in areas not covered by bandage. PT-OP-J Posture/Palpation/Skin Start: 05/09/22 16:15 Freq: Status: Active Protocol: Document 05/11/22 09:07 LRN (Rec: 05/11/22 09:47 LRN [id number]) Posture Evaluation Position Standing L-Spine Posture Flattened Weight Distribution Weight Shifted Right Hip Posture (L) Flexed,(R) Flexed Comments Posture Comments Pt assessed with use of FWW for balance support. Palpation Assessment Location L knee Palpation Location Areas around scar protective bandage. Palpation Details Sensation intact. Skin Assessment Other Assessments Skin Assessment Comments Patient wearing thigh-high MIRELA hose left LE. Pt incision covered with protective bandage. PT-OP-K Range of Motion Start: 05/09/22 16:15 Freq: Status: Active Protocol: Document 06/11/22 08:16 SP (Rec: 06/11/22 09:05 SP [id number]) Knee Goniometric Range of Motion Knee Left Patient Position Supine Flexion Active (degrees) 111 Flexion Passive (degrees) 115 Extension Active (degrees) 3 PT-OP-M Strength Start: 05/09/22 16:15 Freq: Status: Active Protocol: Document 05/11/22 09:07 LRN (Rec: 05/11/22 09:47 LRN [id number]) Hip Strength Hip Manual Muscle Testing Right Flexion (L2) 5 Normal Left Flexion (L2) 2 Poor Knee Strength Knee Manual Muscle Testing Right Flexion (S2) 5 Normal Extension (L3) 5 Normal Left Flexion (S2) 2 Poor Extension (L3) 2- Poor- Ankle/Foot Strength Ankle and Foot Manual Muscle Testing Right Dorsiflexion (L4) 5 Normal Plantarflexion (S1) 5 Normal Inversion 5 Normal Eversion (S1) 5 Normal Left Dorsiflexion (L4) 5 Normal Plantarflexion (S1) 5 Normal Inversion 5 Normal Eversion (S1) 5 Normal PT-OP-Q Treatments Start: 05/09/22 16:15 Freq: Status: Active Protocol: Document 06/11/22 08:16 SP (Rec: 06/11/22 09:05 SP [id number]) Cardio Equipment Recumbent Bicycle Duration (Minutes) 10 Resistance 0 Seat Position 10>8 Other full revolution Gym Equipment Shuttle Recovery unilateral Details 25# (80 deg flexion- comfort, heel press glut fac) Reps/Time x8 Bilateral Squats Details cued knees with midfoot ( unblocked) Resistance 50# (old bands) Shuttle Recovery Platform Stable Reps/Time x20 Therapeutic Exercises Supine Exercises Heel slides Supine Exercise Name Heel slides w/ strap Side left Resistance table Equipment Used w/ strap Reps/Minutes many reps Prone Exercises L knee flexion Prone Exercise Name initiated in PT Side left Equipment Used w/ strap L foot Reps/Minutes 20 SH Comments good feedback initial quad stretch, then felt in knee- approx 110 deg Sitting Exercises STS Sitting Exercise Name shuttle recovery 24-trial Equipment Used no UE support Reps/Minutes x8 reps Comments good hip hinge, cued knees apart with mid foot Knee flex Sitting Exercise Name Active knee flex - cervical flexion Side left Equipment Used on shuttle recovery Reps/Minutes 5x2 Comments review Knee ext Sitting Exercise Name Active knee ext - with cervical extension Side left Equipment Used on shuttle recovery Reps/Minutes 5x2 Comments review Standing Exercises hip extension Standing Exercise Name initiated in PT Side bilateral Resistance AROM Equipment Used rail support Reps/Minutes 1 sec pause contraction 2x8 reps Comments good glut fac, no adverse affects to stance time on LLE with BUE support Gait Training Gait Activity no AD Description initiated quality gait phases in mirror Device Used 0 Level of Assistance S Distance/Duration 20 ft x 6 laps Treatment Focus tall posturing over stance LE, L knee/hip flexion advance, quad/glut fac Comments cued tall posturing, core/quad /glut fac over stance LE, no trunk wt shifting, level pelvis to normalize gait. Suggested continued use of trekpole for support due to L quad not strong and unsteady midstance. Manual Therapy Treatment Soft Tissue Mobilization scar mob Body Location L knee Mobilization Type Myofascial Release Intensity/Depth Moderate Body Position Sitting Comments manual and ed self performance PT-OP-R Modalities Start: 05/09/22 16:15 Freq: Status: Active Protocol: Document 05/25/22 08:57 NBM (Rec: 05/25/22 09:50 NBM [id number]) Hot Pack/Cold Pack Treatment Cold Pack Location L knee Treatment Duration (minutes) 10 Patient Tolerance Good Comments Legs up on bolster PT-OP-T Assessment and Plan Start: 05/09/22 16:15 Freq: Status: Active Protocol: Document 06/11/22 08:16 SP (Rec: 06/11/22 09:05 SP [id number]) Physical Therapy Assessment Goals Four Impairment L knee/hip weakness Impairment L knee strength: Flexion 2/5, Extension 2-/5 R knee strength: Flex/Ext is 5/5 Short Term Goal (STG) Improve L knee strength to at least 3+/5, with pt able to transfer out of bed without the use of a strap to move the LLE. 06/05/22: Pt moving LLE independent from R and use of UE's. STG Duration 06/26/22 (06/05/22: MET GOAL) Motorsports Technician Goal (LTG) Improve L knee strength to at least 4+/5 to allow patient to ambulate stairs with a normal gait. LTG Duration 08/09/22 Three Impairment Decreased L knee AROM Impairment L knee AROM (deg's): 30-58, PROM (deg's): 6-70 R knee AROM (deg's): 6-116, PROM (deg's): 0 deg's extension. Short Term Goal (STG) Improve L knee PROM to 5-120 06/11/22: STG Duration 06/26/22 Motorsports Technician Goal (LTG) Improve L knee PROM to 0-125 LTG Duration 08/09/22 Two Impairment gait dysfunction Impairment Pt ambs with FWW, antalgic gait, lacks L ankle/knee mobility Short Term Goal (STG) Patient able to ambulate household distances with cane with min to no limp on level surfaces. 06/01/22: Pt walks with antalgic gait with FWW. STG Duration 06/26/22 Longterm Goal (LTG) Pt will ambulate with a normal gait or very minimal antalgic gait without an assistive device. LTG Duration 08/09/22 One Impairment Lacks self care HEP Impairment patient requires use of FWW for gait and ambulates with stiff knee, antalgic gait Short Term Goal (STG) Pt will be educated in edema management. 05/28/22: Educated pt in RICE program. STG Duration 05/15/22 (05/28/22: MET GOAL) Longterm Goal (LTG) Pt will be independent with a self care HEP of L knee, ankle , hip ROM/strengthening ex's to address areas of deficit. 06/05/22: HEP: Femoral n. tensioner. Review of previous issued Sciatic n. slider/ tensioner. LTG Duration 08/09/22 progressed 06/05/22 Assessment Summary Assessment Pt felt shuttle recovery and recumbent bike better and less stress ROM. She improved gait phases after time spent with cues in mirror, best use of trek pole at this time until quad/HS stronger. Improved AAROM initiated prone w/strap between prone hange to improve ROM, good response HS inhibition and quad stretch then felt progress AAROM. Physical Therapy Plan Frequency and Duration Frequency of Treatment 2x/Week Plan of Care Start Date 05/11/22 Plan of Care End Date 08/09/22 Therapeutic Interventions Therapeutic Interventions Balance Training,Gait Training ,Home Exercise Program,Manual Therapy,Patient/Caregiver Education,Self-Care/Home Management,Soft Tissue Mobilization,Taping, Therapeutic Activities, Therapeutic Exercises Modalities Cold Pack/Ice Massage,Hot Packs Next Visit Focus/Plan Next Note Type Progress Note Next Visit Plan 10th visit PN next tx. Continue warm up recumbent bike. gait with trek pole: assess 1 vs 2 and progress none in mirror. Recheck AA/ AROM. POC: Review transfer training for independence. L knee ROM, L ankle DF stretching, L hip strengthening. Stair training when appropriate mobiltiy achieved. Progress HEP as tolerated including consider adding standing heel raises and marching. Modalities for pain management .
--- NOTE | 2022-06-15 17:36 | PT.OTN ---
Current Diagnoses Unilateral primary osteoarthritis, left knee (06/15/22) Physical Therapy Treatment Note PT-OP-A Visit Information Start: 05/09/22 16:15 Freq: Status: Active Protocol: Document 06/15/22 09:14 NBM (Rec: 06/15/22 11:16 NBM [id number]) Out-Patient Physical Therapy Visit Information Visit Information Visit Type Treatment Note Visit Note SUPERVISOR COOK ROOM late getting pt Visit Start Time 09:10 Visit Stop Time 09:50 Total Visit Minutes 40 Visit Number 10 Number of SUPERVISOR COOK ROOM Visits 3 Evaluation Information Evaluation Date 05/11/22 Precautions Precautions Cardiac arrhythmia s/p surgery , and being assessed for Cardiac arrhythmia. R TKA -rehab ending 02/13/22. PT-OP-B Current Condition Start: 05/09/22 16:15 Freq: Status: Active Protocol: Document 05/11/22 09:07 LRN (Rec: 05/11/22 09:47 LRN [id number]) Current Condition History of Current Condition Onset Date 04/27/22 Current Complaints Lack of L knee rom, pain-reqs med, hamstring tight, antalgic gt-FWW. History of Current Condition Pt is s/p L TKA on 04/27/22 and was in hospital 1 day but due to onset of A.Fib was kept in recovery for a few more hours . Wore a heart monitor for a week with removal tomorrow. States with her R TKA she had sinus arrythmia, otherwise no history of cardiac issues. Prior Treatments and Tests Eval and 3 treatments immediately after her TKA in [facility] prior to transfer to [facility]. PT was Reny Downs DPT. Future Testing and Treatments Planned Heavy Equipment Service Manager appt tomorrow. Treatment Goals Patient/Caregiver Goals Pt goals: - walk correctly without an assistive device. - Stairs with normal gait. - Transfer without assist of strap. Personal Factors Other Personal Factors That May Effect Pt s/p R TKA 12/10/21 with last Therapy/Recovery rehab treatment 02/13/22, ending with difficulty with sit to stand from lower surfaces. Pt being assessed currently for Cardiac arrhythmia. PT-OP-C Subjective Start: 05/09/22 16:15 Freq: Status: Active Protocol: Document 06/15/22 09:14 NBM (Rec: 06/15/22 11:16 NBM [id number]) OP-PT Subjective Patient Comments Patient Comments Pt reports she overdid it over the weekend using the equipment in her daughter's PT clinic. She got off the shuttle recovery without assistance and felt like she bent her left knee so it's been sore. She thought she reached a turning point Wednesday morning when she woke up and her knee didn't hurt like it did, but now her L knee hurts 6-10/05. R knee does not hurt at all at the moment . She's only been icing the L knee because by the time the ice is cold again she needs to ice again. PT-OP-G Mobility & Gait Start: 05/09/22 16:15 Freq: Status: Active Protocol: Document 05/11/22 09:07 LRN (Rec: 05/11/22 09:47 LRN [id number]) OP Mobility Evaluation Bed Mobility Supine to and from Sit Independent with use of strap to help lift the LLE off the bed. Transfers Sit to Stand Independent with use of hands and FWW from higher surface. OP Gait Assessment Gait Gait Assistance Required: Independent Able to Maintain Weight Bearing Status Yes During Gait Assistive Devices Assistive Device Front Wheeled Walker Gait Deviations General Gait Pattern Antalgic,Decreased Stride Length,Flexed Trunk,Step-to Gait Stair Climbing Evaluation Devices Stair Climbing Assistive Devices Right Railing Technique/Endurance Stair Climbing Direction Ascend and Descend Stair Climbing Technique Step to Step Comments Stair Climbing Comments Ascending railing on R, Walking stick on L. PT-OP-H Neuro Start: 05/09/22 16:15 Freq: Status: Active Protocol: Document 05/11/22 09:07 LRN (Rec: 05/11/22 09:47 LRN [id number]) Sensation Evaluation Comments Summary Comments Sensation intact to soft touch in areas not covered by bandage. PT-OP-J Posture/Palpation/Skin Start: 05/09/22 16:15 Freq: Status: Active Protocol: Document 05/11/22 09:07 LRN (Rec: 05/11/22 09:47 LRN [id number]) Posture Evaluation Position Standing L-Spine Posture Flattened Weight Distribution Weight Shifted Right Hip Posture (L) Flexed,(R) Flexed Comments Posture Comments Pt assessed with use of FWW for balance support. Palpation Assessment Location L knee Palpation Location Areas around scar protective bandage. Palpation Details Sensation intact. Skin Assessment Other Assessments Skin Assessment Comments Patient wearing thigh-high MIRELA hose left LE. Pt incision covered with protective bandage. PT-OP-K Range of Motion Start: 05/09/22 16:15 Freq: Status: Active Protocol: Document 06/11/22 08:16 SP (Rec: 06/11/22 09:05 SP [id number]) Knee Goniometric Range of Motion Knee Left Patient Position Supine Flexion Active (degrees) 111 Flexion Passive (degrees) 115 Extension Active (degrees) 3 PT-OP-M Strength Start: 05/09/22 16:15 Freq: Status: Active Protocol: Document 05/11/22 09:07 LRN (Rec: 05/11/22 09:47 LRN [id number]) Hip Strength Hip Manual Muscle Testing Right Flexion (L2) 5 Normal Left Flexion (L2) 2 Poor Knee Strength Knee Manual Muscle Testing Right Flexion (S2) 5 Normal Extension (L3) 5 Normal Left Flexion (S2) 2 Poor Extension (L3) 2- Poor- Ankle/Foot Strength Ankle and Foot Manual Muscle Testing Right Dorsiflexion (L4) 5 Normal Plantarflexion (S1) 5 Normal Inversion 5 Normal Eversion (S1) 5 Normal Left Dorsiflexion (L4) 5 Normal Plantarflexion (S1) 5 Normal Inversion 5 Normal Eversion (S1) 5 Normal PT-OP-Q Treatments Start: 05/09/22 16:15 Freq: Status: Active Protocol: Document 06/15/22 09:14 NBM (Rec: 06/15/22 11:16 NBM [id number]) Cardio Equipment Bicycle (Upright) Duration (Minutes) 10 Resistance 0 Seat Position 8 Other fwd/bwd due to reported stiffness, vc breathwork - 1 rev Gym Equipment Shuttle Recovery unilateral Details L (80 deg flexion- comfort, heel press glut fac) Resistance L 25#, R 25#>37# Reps/Time L 2x10 Rx10, breathwork Bilateral Squats Details cued knees with midfoot ( unblocked) Resistance 50# (old bands) Shuttle Recovery Platform Stable Reps/Time x20 Therapeutic Exercises Sitting Exercises HS stretch Side bilateral Equipment Used mesh standard chair Reps/Minutes x60s ea Comments + feedback response STS Sitting Exercise Name shuttle recovery 24 x10, mesh chair attempted x1 UEs needed Equipment Used no UE support Reps/Minutes x8 reps Comments good hip hinge, cued knees apart with mid foot Knee flex Sitting Exercise Name Active knee flex - cervical flexion Side left Equipment Used on shuttle recovery Reps/Minutes x10 Comments review Knee ext Sitting Exercise Name Active knee ext - with cervical extension Side left Equipment Used on shuttle recovery Reps/Minutes x10 Comments review Standing Exercises hip extension Standing Exercise Name initiated in PT Side bilateral Resistance AROM Equipment Used rail support Reps/Minutes 1 sec pause contraction 2x8 reps Comments LLE stance 1x8 d/t soreness w/ UE support today Gait Training Gait Activity Gait w/B trekking poles Device Used B trekking poles Level of Assistance SBA Surface carpet Distance/Duration 40 ft Treatment Focus cued tall posturing, core/quad /glut fac over stance LE Comments vc to increase step length (HS tightness) and maintain step width. Self-Care/Home Management Treatment Education Patient Education Home Exercise Program,Joint Protection,Pain Management Other Education Educated pt re: their single ice pack that they can also use frozen vegetables as an ice pack in order to ice both knees as needed. PT-OP-R Modalities Start: 05/09/22 16:15 Freq: Status: Active Protocol: Document 06/15/22 09:14 NBM (Rec: 06/15/22 11:16 [facility] [id number]) Hot Pack/Cold Pack Treatment Cold Pack Location B knee Treatment Duration (minutes) 10 Patient Tolerance Good Comments Legs up on bolster PT-OP-T Assessment and Plan Start: 05/09/22 16:15 Freq: Status: Active Protocol: Document 06/15/22 09:14 NB (Rec: 06/15/22 11:16 [facility] [id number]) Physical Therapy Assessment Impairments Impairments Activity Tolerance,Balance, Gait,Pain,ROM,Sensation,Soft Tissue Mobility,Strength Goals Four Impairment L knee/hip weakness Impairment L knee strength: Flexion 2/5, Extension 2-/5 R knee strength: Flex/Ext is 5/5 Short Term Goal (STG) Improve L knee strength to at least 3+/5, with pt able to transfer out of bed without the use of a strap to move the LLE. 06/05/22: Pt moving LLE independent from R and use of UE's. STG Duration 06/26/22 (06/05/22: MET GOAL) Group Home Goal (LTG) Improve L knee strength to at least 4+/5 to allow patient to ambulate stairs with a normal gait. LTG Duration 08/09/22 Three Impairment Decreased L knee AROM Impairment L knee AROM (deg's): 30-58, PROM (deg's): 6-70 R knee AROM (deg's): 6-116, PROM (deg's): 0 deg's extension. Short Term Goal (STG) Improve L knee PROM to 5-120 06/11/22: STG Duration 06/26/22 Communications Specialist Goal (LTG) Improve L knee PROM to 0-125 LTG Duration 08/09/22 Two Impairment gait dysfunction Impairment Pt ambs with FWW, antalgic gait, lacks L ankle/knee mobility Short Term Goal (STG) Patient able to ambulate household distances with cane with min to no limp on level surfaces. 06/01/22: Pt walks with antalgic gait with FWW. 06/15/22: Pt demonstrates improved gait with valencia trekking poles but requires cues for step length and heel strike and neutral pelvis. STG Duration 06/26/22 Communications Specialist Goal (LTG) Pt will ambulate with a normal gait or very minimal antalgic gait without an assistive device. LTG Duration 08/09/22 One Impairment Lacks self care HEP Impairment patient requires use of FWW for gait and ambulates with stiff knee, antalgic gait Short Term Goal (STG) Pt will be educated in edema management. 05/28/22: Educated pt in RICE program. STG Duration 05/15/22 (05/28/22: MET GOAL) Communications Specialist Goal (LTG) Pt will be independent with a self care HEP of L knee, ankle , hip ROM/strengthening ex's to address areas of deficit. 06/05/22: HEP: Femoral n. tensioner. Review of previous issued Sciatic n. slider/ tensioner. LTG Duration 08/09/22 progressed 06/05/22 Assessment Summary Assessment Pt requires cues w/ valencia trekking poles to increase step length and maintain step width; hamstring tightenss likely contributing to decreased step length. Pt is able to complete one revolution on the upright bike today but with pelvis compensation, and discontinued due to pt's complaint of L knee soreness today. Pt encouraged in stretching program and utilizing breathwork for improving knee range of motion. Physical Therapy Plan Frequency and Duration Frequency of Treatment 2x/Week Plan of Care Start Date 05/11/22 Plan of Care End Date 08/09/22 Therapeutic Interventions Therapeutic Interventions Balance Training,Gait Training ,Home Exercise Program,Manual Therapy,Patient/Caregiver Education,Self-Care/Home Management,Soft Tissue Mobilization,Taping, Therapeutic Activities, Therapeutic Exercises Modalities Cold Pack/Ice Massage,Hot Packs Next Visit Focus/Plan Next Note Type Progress Note Next Visit Plan 10th visit PN next tx. Continue warm up recumbent bike. gait with trek pole: assess 1 vs 2 and progress none in mirror. Recheck AA/ AROM. POC: Review transfer training for independence. L knee ROM, L ankle DF stretching, L hip strengthening. Stair training when appropriate mobiltiy achieved. Progress HEP as tolerated including consider adding standing heel raises and marching. Modalities for pain management .
--- NOTE | 2022-06-18 16:51 | PT.OTN ---
Current Diagnoses Unilateral primary osteoarthritis, left knee (06/18/22) Physical Therapy Treatment Note PT-OP-A Visit Information Start: 05/09/22 16:15 Freq: Status: Active Protocol: Document 06/18/22 09:03 LRN (Rec: 06/18/22 09:47 LRN [id number]) Out-Patient Physical Therapy Visit Information Visit Information Visit Type Treatment Note Visit Start Time 09:03 Visit Stop Time 09:46 Total Visit Minutes 43 Visit Number 10 Evaluation Information Evaluation Date 05/11/22 Precautions Precautions Cardiac arrhythmia s/p surgery , and being assessed for Cardiac arrhythmia. R TKA -rehab ending 02/13/22. PT-OP-B Current Condition Start: 05/09/22 16:15 Freq: Status: Active Protocol: Document 05/11/22 09:07 LRN (Rec: 05/11/22 09:47 LRN [id number]) Current Condition History of Current Condition Onset Date 04/27/22 Current Complaints Lack of L knee rom, pain-reqs med, hamstring tight, antalgic gt-FWW. History of Current Condition Pt is s/p L TKA on 04/27/22 and was in hospital 1 day but due to onset of A.Fib was kept in recovery for a few more hours . Wore a heart monitor for a week with removal tomorrow. States with her R TKA she had sinus arrythmia, otherwise no history of cardiac issues. Prior Treatments and Tests Eval and 3 treatments immediately after her TKA in [facility] prior to transfer to [facility]. PT was Reny Downs DPT. Future Testing and Treatments Planned Dance Coach appt tomorrow. Treatment Goals Patient/Caregiver Goals Pt goals: - walk correctly without an assistive device. - Stairs with normal gait. - Transfer without assist of strap. Personal Factors Other Personal Factors That May Effect Pt s/p R TKA 12/10/21 with last Therapy/Recovery rehab treatment 02/13/22, ending with difficulty with sit to stand from lower surfaces. Pt being assessed currently for Cardiac arrhythmia. PT-OP-C Subjective Start: 05/09/22 16:15 Freq: Status: Active Protocol: Document 06/18/22 09:03 LRN (Rec: 06/18/22 09:47 LRN [id number]) OP-PT Subjective Patient Comments Patient Comments [place] day [place] and was really sore in the L knee. Had ice to apply all day. Saw MD mary carmen laguna at 6 wk follow up and will return in 2 months. Thought she was doing alright. PT-OP-G Mobility & Gait Start: 05/09/22 16:15 Freq: Status: Active Protocol: Document 05/11/22 09:07 LRN (Rec: 05/11/22 09:47 LRN [id number]) OP Mobility Evaluation Bed Mobility Supine to and from Sit Independent with use of strap to help lift the LLE off the bed. Transfers Sit to Stand Independent with use of hands and FWW from higher surface. OP Gait Assessment Gait Gait Assistance Required: Independent Able to Maintain Weight Bearing Status Yes During Gait Assistive Devices Assistive Device Front Wheeled Walker Gait Deviations General Gait Pattern Antalgic,Decreased Stride Length,Flexed Trunk,Step-to Gait Stair Climbing Evaluation Devices Stair Climbing Assistive Devices Right Railing Technique/Endurance Stair Climbing Direction Ascend and Descend Stair Climbing Technique Step to Step Comments Stair Climbing Comments Ascending railing on R, Walking stick on L. PT-OP-H Neuro Start: 05/09/22 16:15 Freq: Status: Active Protocol: Document 05/11/22 09:07 LRN (Rec: 05/11/22 09:47 LRN [id number]) Sensation Evaluation Comments Summary Comments Sensation intact to soft touch in areas not covered by bandage. PT-OP-J Posture/Palpation/Skin Start: 05/09/22 16:15 Freq: Status: Active Protocol: Document 05/11/22 09:07 LRN (Rec: 05/11/22 09:47 LRN [id number]) Posture Evaluation Position Standing L-Spine Posture Flattened Weight Distribution Weight Shifted Right Hip Posture (L) Flexed,(R) Flexed Comments Posture Comments Pt assessed with use of FWW for balance support. Palpation Assessment Location L knee Palpation Location Areas around scar protective bandage. Palpation Details Sensation intact. Skin Assessment Other Assessments Skin Assessment Comments Patient wearing thigh-high MIRELA hose left LE. Pt incision covered with protective bandage. PT-OP-K Range of Motion Start: 05/09/22 16:15 Freq: Status: Active Protocol: Document 06/18/22 09:03 LRN (Rec: 06/18/22 09:47 LRN [id number]) Knee Goniometric Range of Motion Knee Right Knee ROM WFL Yes Patient Position Supine Flexion Active (degrees) 116 Extension Active (degrees) 0 Extension Passive (degrees) 0 Comments Extension deg's indicates lack of extension to normal. Left Knee ROM WFL No Patient Position Supine Flexion Active (degrees) 110 Flexion Passive (degrees) 111 Extension Active (degrees) 5 Extension Passive (degrees) 4 Comments Lacks 10 deg's active ext in sitting. PT-OP-M Strength Start: 05/09/22 16:15 Freq: Status: Active Protocol: Document 06/18/22 09:03 LRN (Rec: 06/18/22 09:47 LRN [id number]) Knee Strength Knee Manual Muscle Testing Left Flexion (S2) 3+ Fair+ Extension (L3) 3+ Fair+ PT-OP-Q Treatments Start: 05/09/22 16:15 Freq: Status: Active Protocol: Document 06/18/22 09:03 LRN (Rec: 06/18/22 09:47 LRN [id number]) Cardio Equipment Bicycle (Upright) Duration (Minutes) 10 Resistance 0 Seat Position 8 Other fwd/bwd for 5' before she was able to do revolutions Therapeutic Exercises Supine Exercises SLR Supine Exercise Name SLR Side left Reps/Minutes 10x 2, 2x Comments training w/breathing, NMF QS Supine Exercise Name L QS Side left Reps/Minutes 10x active & assisted Comments Cuing quads to relax ankle DF' s. QS w/STM to fib head/lat jt . Sitting Exercises Knee flex/Ext Sitting Exercise Name Knee flex/ext Side left Equipment Used 2# for ext, Lev 2 TB for flex Reps/Minutes 15x PT-OP-R Modalities Start: 05/09/22 16:15 Freq: Status: Active Protocol: Document 06/15/22 09:14 NBM (Rec: 06/15/22 11:16 NBM [id number]) Hot Pack/Cold Pack Treatment Cold Pack Location B knee Treatment Duration (minutes) 10 Patient Tolerance Good Comments Legs up on bolster PT-OP-T Assessment and Plan Start: 05/09/22 16:15 Freq: Status: Active Protocol: Document 06/18/22 09:03 LRN (Rec: 06/18/22 09:47 LRN [id number]) Physical Therapy Assessment Rehab Potential Rehabilitation Potential Good Evaluation Complexity Number of Personal Factors/Comorbidities 1-2 Number of Body Systems Impaired 4 or More Clinical Presentation at Evaluation Evolving Impairments Impairments Activity Tolerance,Balance, Gait,Pain,ROM,Sensation,Soft Tissue Mobility,Strength Goals Four Impairment L knee/hip weakness Impairment L knee strength: Flexion 2/5, Extension 2-/5 R knee strength: Flex/Ext is 5/5 Short Term Goal (STG) Improve L knee strength to at least 3+/5, with pt able to transfer out of bed without the use of a strap to move the LLE. 06/05/22: Pt moving LLE independent from R and use of UE's. STG Duration 06/26/22 (06/05/22: MET GOAL) Software Quality Tester Goal (LTG) Improve L knee strength to at least 4+/5 to allow patient to ambulate stairs with a normal gait. 06/18/22: Flex 3+/5, Ext 3+/5. LTG Duration 08/09/22 progressing 06/18/22 Three Impairment Decreased L knee AROM Impairment L knee AROM (deg's): 30-58, PROM (deg's): 6-70 R knee AROM (deg's): 6-116, PROM (deg's): 0 deg's extension. Short Term Goal (STG) Improve L knee PROM to 5-120 06/18/22: PROM to 5-111. STG Duration 06/26/22 progressing 06/18/22 Software Quality Tester Goal (LTG) Improve L knee PROM to 0-125 06/18/22: PROM supine 5-111; AROM siting 10-108 LTG Duration 08/09/22 progressing 06/18/22 Two Impairment gait dysfunction Impairment Pt ambs with FWW, antalgic gait, lacks L ankle/knee mobility Short Term Goal (STG) Patient able to ambulate household distances with cane with min to no limp on level surfaces. 06/01/22: Pt walks with antalgic gait with FWW. 06/15/22: Pt demonstrates improved gait with valencia trekking poles but requires cues for step length and heel strike and neutral pelvis. 06/18/22: Antalgic gait with one trek pole. STG Duration 06/26/22 progressing 06/18/22 Software Quality Tester Goal (LTG) Pt will ambulate with a normal gait or very minimal antalgic gait without an assistive device. LTG Duration 08/09/22 One Impairment Lacks self care HEP Impairment patient requires use of FWW for gait and ambulates with stiff knee, antalgic gait Short Term Goal (STG) Pt will be educated in edema management. 05/28/22: Educated pt in RICE program. STG Duration 05/15/22 (05/28/22: MET GOAL) Software Quality Tester Goal (LTG) Pt will be independent with a self care HEP of L knee, ankle , hip ROM/strengthening ex's to address areas of deficit. 06/05/22: HEP: Femoral n. tensioner. Review of previous issued Sciatic n. slider/ tensioner. LTG Duration 08/09/22 progressed 06/05/22 Assessment Summary Assessment Pt has progressed in her L knee strength and ROM, although her knee passive flexion mobility is a little behind in expected PROM. Her strength is slowly improving. The pt will need to increase her ROM ex's at home and is expected to do well if she can increase her focus on improving her L knee flexion mobility. The pt will benefit from continued skilled physical therapy to achieve her short term ROM goal and her exterminator goals as indicated above. Physical Therapy Plan Frequency and Duration Frequency of Treatment 2x/Week Plan of Care Start Date 06/18/22 Plan of Care End Date 07/24/22 Therapeutic Interventions Therapeutic Interventions Balance Training,Gait Training ,Home Exercise Program,Manual Therapy,Patient/Caregiver Education,Self-Care/Home Management,Soft Tissue Mobilization,Taping, Therapeutic Activities, Therapeutic Exercises Modalities Cold Pack/Ice Massage,Hot Packs Next Visit Focus/Plan Next Note Type Treatment Note Next Visit Plan Continue warm up recumbent bike. gait with trek pole: assess 1 vs 2 and progress none in mirror. Recheck AA/ AROM. POC: Review transfer training for independence. L knee ROM, L ankle DF stretching, L hip strengthening. Stair training when appropriate mobiltiy achieved. Progress HEP as tolerated including consider adding standing heel raises and marching. Modalities for pain management .
--- NOTE | 2022-06-22 09:54 | PT.OTN ---
Current Diagnoses Unilateral primary osteoarthritis, left knee (06/22/22) Physical Therapy Treatment Note PT-OP-A Visit Information Start: 05/09/22 16:15 Freq: Status: Active Protocol: Document 06/22/22 09:01 NBM (Rec: 06/22/22 09:54 NB [id number]) Out-Patient Physical Therapy Visit Information Visit Information Visit Type Treatment Note Visit Start Time 09:01 Visit Stop Time 09:45 Total Visit Minutes 44 Visit Number 12 Number of MAGAZINE JOURNALIST Visits 1 PT-OP-B Current Condition Start: 05/09/22 16:15 Freq: Status: Active Protocol: Document 05/11/22 09:07 LRN (Rec: 05/11/22 09:47 LRN [id number]) Current Condition History of Current Condition Onset Date 04/27/22 Current Complaints Lack of L knee rom, pain-reqs med, hamstring tight, antalgic gt-FWW. History of Current Condition Pt is s/p L TKA on 04/27/22 and was in hospital 1 day but due to onset of A.Fib was kept in recovery for a few more hours . Wore a heart monitor for a week with removal tomorrow. States with her R TKA she had sinus arrythmia, otherwise no history of cardiac issues. Prior Treatments and Tests Eval and 3 treatments immediately after her TKA in [facility] prior to transfer to [facility]. PT was Reny Downs DPT. 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 Treatment Goals Patient/Caregiver Goals Pt goals: - walk correctly without an assistive device. - Stairs with normal gait. - Transfer without assist of strap. Personal Factors Other Personal Factors That May Effect Pt s/p R TKA 12/10/21 with last Therapy/Recovery rehab treatment 02/13/22, ending with difficulty with sit to stand from lower surfaces. Pt being assessed currently for Cardiac arrhythmia. PT-OP-C Subjective Start: 05/09/22 16:15 Freq: Status: Active Protocol: Document 06/22/22 09:01 NBM (Rec: 06/22/22 09:54 NB [id number]) OP-PT Subjective Patient Comments Patient Comments Pt reports she has been working on bending her knee over the weekend and going up and down the stairs step over step w/ a walking stick and handrail, and the pain has gotten much better. She thinks she will be able to get her knee over on the first try on the upright bicycle. PT-OP-G Mobility & Gait Start: 05/09/22 16:15 Freq: Status: Active Protocol: Document 05/11/22 09:07 LRN (Rec: 05/11/22 09:47 LRN [id number]) OP Mobility Evaluation Bed Mobility Supine to and from Sit Independent with use of strap to help lift the LLE off the bed. Transfers Sit to Stand Independent with use of hands and FWW from higher surface. OP Gait Assessment Gait Gait Assistance Required: Independent Able to Maintain Weight Bearing Status Yes During Gait Assistive Devices Assistive Device Front Wheeled Walker Gait Deviations General Gait Pattern Antalgic,Decreased Stride Length,Flexed Trunk,Step-to Gait Stair Climbing Evaluation Devices Stair Climbing Assistive Devices Right Railing Technique/Endurance Stair Climbing Direction Ascend and Descend Stair Climbing Technique Step to Step Comments Stair Climbing Comments Ascending railing on R, Walking stick on L. PT-OP-H Neuro Start: 05/09/22 16:15 Freq: Status: Active Protocol: Document 05/11/22 09:07 LRN (Rec: 05/11/22 09:47 LRN [id number]) Sensation Evaluation Comments Summary Comments Sensation intact to soft touch in areas not covered by bandage. PT-OP-J Posture/Palpation/Skin Start: 05/09/22 16:15 Freq: Status: Active Protocol: Document 05/11/22 09:07 LRN (Rec: 05/11/22 09:47 LRN [id number]) Posture Evaluation Position Standing L-Spine Posture Flattened Weight Distribution Weight Shifted Right Hip Posture (L) Flexed,(R) Flexed Comments Posture Comments Pt assessed with use of FWW for balance support. Palpation Assessment Location L knee Palpation Location Areas around scar protective bandage. Palpation Details Sensation intact. Skin Assessment Other Assessments Skin Assessment Comments Patient wearing thigh-high MIRELA hose left LE. Pt incision covered with protective bandage. PT-OP-K Range of Motion Start: 05/09/22 16:15 Freq: Status: Active Protocol: Document 06/18/22 09:03 LRN (Rec: 06/18/22 09:47 LRN [id number]) Knee Goniometric Range of Motion Knee Right Knee ROM WFL Yes Patient Position Supine Flexion Active (degrees) 116 Extension Active (degrees) 0 Extension Passive (degrees) 0 Comments Extension deg's indicates lack of extension to normal. Left Knee ROM WFL No Patient Position Supine Flexion Active (degrees) 110 Flexion Passive (degrees) 111 Extension Active (degrees) 5 Extension Passive (degrees) 4 Comments Lacks 10 deg's active ext in sitting. PT-OP-M Strength Start: 05/09/22 16:15 Freq: Status: Active Protocol: Document 06/18/22 09:03 LRN (Rec: 06/18/22 09:47 LRN [id number]) Knee Strength Knee Manual Muscle Testing Left Flexion (S2) 3+ Fair+ Extension (L3) 3+ Fair+ PT-OP-Q Treatments Start: 05/09/22 16:15 Freq: Status: Active Protocol: Document 06/22/22 09:01 NBM (Rec: 06/22/22 09:54 NBM [id number]) Cardio Equipment Bicycle (Upright) Duration (Minutes) 10 Resistance 0 Seat Position 8 Other fwd/bwd for 5' before she was able to do revolutions Therapeutic Exercises Supine Exercises ITB/TFL stretch Side left Equipment Used w/ strap Reps/Minutes x60s Comments + feedback response Heel slides Supine Exercise Name Heel slides Side left Resistance table Reps/Minutes x12 Comments cues for breathwork SLR Supine Exercise Name SLR Side left Reps/Minutes 10x Comments training w/breathing, NMF, control eccentric QS Supine Exercise Name L QS Side left Reps/Minutes 10x active w/ Comments Cuing quads to relax ankle DF Standing Exercises TKE Standing Exercise Name Terminal Knee extension Side left Resistance Lvl 2 Tb Equipment Used handrail Reps/Minutes 10 x 3 SH Comments tactile cues for glute and quad activation Plantarflexor stretch Side bilateral Equipment Used YUMIKO Reps/Minutes x60s Comments + feedback response hip extension Standing Exercise Name initiated in PT Side bilateral Resistance AROM Equipment Used rail support Reps/Minutes 1 sec pause contraction 2x10 reps Gait Training Gait Activity Stairs Description 6 training steps Device Used Valencia handrails w/ no AD; LUE trekking pole and RUE handrail Level of Assistance SBA Distance/Duration 2x ascend/descend each Treatment Focus weight distribution, sequencing, upright posture Comments step over step ascend and descend PT-OP-R Modalities Start: 05/09/22 16:15 Freq: Status: Active Protocol: Document 06/22/22 09:01 [facility] (Rec: 06/22/22 09:54 [facility] [id number]) Hot Pack/Cold Pack Treatment Cold Pack Location l knee Patient Position Hooklying Treatment Duration (minutes) 10 Patient Tolerance Good Comments top and bottom Legs up on bolster PT-OP-T Assessment and Plan Start: 05/09/22 16:15 Freq: Status: Active Protocol: Document 06/22/22 09:01 [facility] (Rec: 06/22/22 09:54 [facility] [id number]) Physical Therapy Assessment Impairments Impairments Activity Tolerance,Balance, Gait,Pain,ROM,Sensation,Soft Tissue Mobility,Strength Goals Four Impairment L knee/hip weakness Impairment L knee strength: Flexion 2/5, Extension 2-/5 R knee strength: Flex/Ext is 5/5 Short Term Goal (STG) Improve L knee strength to at least 3+/5, with pt able to transfer out of bed without the use of a strap to move the LLE. 06/05/22: Pt moving LLE independent from R and use of UE's. STG Duration 06/26/22 (06/05/22: MET GOAL) Rock Worker Goal (LTG) Improve L knee strength to at least 4+/5 to allow patient to ambulate stairs with a normal gait. 06/18/22: Flex 3+/5, Ext 3+/5. LTG Duration 08/09/22 progressing 06/18/22 Three Impairment Decreased L knee AROM Impairment L knee AROM (deg's): 30-58, PROM (deg's): 6-70 R knee AROM (deg's): 6-116, PROM (deg's): 0 deg's extension. Short Term Goal (STG) Improve L knee PROM to 5-120 06/18/22: PROM to 5-111. STG Duration 06/26/22 progressing 06/18/22 Rock Worker Goal (LTG) Improve L knee PROM to 0-125 06/18/22: PROM supine 5-111; AROM siting 10-108 06/22/22: AROM flexion 114, PROM w/ overpressure and breathwork 117 LTG Duration 08/09/22 progressing 06/18/22 Two Impairment gait dysfunction Impairment Pt ambs with FWW, antalgic gait, lacks L ankle/knee mobility Short Term Goal (STG) Patient able to ambulate household distances with cane with min to no limp on level surfaces. 06/01/22: Pt walks with antalgic gait with FWW. 06/15/22: Pt demonstrates improved gait with valencia trekking poles but requires cues for step length and heel strike and neutral pelvis. 06/18/22: Antalgic gait with one trek pole. STG Duration 06/26/22 progressing 06/18/22 Skilled Nursing Goal (LTG) Pt will ambulate with a normal gait or very minimal antalgic gait without an assistive device. LTG Duration 08/09/22 One Impairment Lacks self care HEP Impairment patient requires use of FWW for gait and ambulates with stiff knee, antalgic gait Short Term Goal (STG) Pt will be educated in edema management. 05/28/22: Educated pt in RICE program. STG Duration 05/15/22 (05/28/22: MET GOAL) Rock Worker Goal (LTG) Pt will be independent with a self care HEP of L knee, ankle , hip ROM/strengthening ex's to address areas of deficit. 06/05/22: HEP: Femoral n. tensioner. Review of previous issued Sciatic n. slider/ tensioner. LTG Duration 08/09/22 progressed 06/05/22 Assessment Summary Assessment Pt is able to complete a full revolution forward and backward on the upright bicycle without pain on the first attempt, demonstrating improving functional mobility. ROM improves from supine 111 deg AROM 06/18/22 to AROM w/ 114 deg, and from 112 deg PROM 06/18/22 117 deg w/ overpressure and breathwork today. Pt's general soreness over L ITB insertion improves w/ ITB stretch w/ strap end of session. Physical Therapy Plan Frequency and Duration Frequency of Treatment 2x/Week Plan of Care Start Date 06/18/22 Plan of Care End Date 07/24/22 Therapeutic Interventions Therapeutic Interventions Balance Training,Gait Training ,Home Exercise Program,Manual Therapy,Patient/Caregiver Education,Self-Care/Home Management,Soft Tissue Mobilization,Taping, Therapeutic Activities, Therapeutic Exercises Modalities Cold Pack/Ice Massage,Hot Packs Next Visit Focus/Plan Next Note Type Treatment Note Next Visit Plan Continue warm up recumbent bike. gait with trek pole: assess 1 vs 2 and progress none in mirror. Recheck AA/ AROM. POC: Review transfer training for independence. L knee ROM, L ankle DF stretching, L hip strengthening. Stair training when appropriate mobiltiy achieved. Progress HEP as tolerated including consider adding standing heel raises and marching. Modalities for pain management .
--- NOTE | 2022-06-25 17:45 | PT.OTN ---
Current Diagnoses Unilateral primary osteoarthritis, left knee (06/25/22) Physical Therapy Treatment Note PT-OP-A Visit Information Start: 05/09/22 16:15 Freq: Status: Active Protocol: Document 06/25/22 09:04 LRN (Rec: 06/25/22 09:51 LRN [id number]) Out-Patient Physical Therapy Visit Information Visit Information Visit Type Treatment Note Visit Start Time 09:04 Visit Stop Time 09:45 Total Visit Minutes 43 Visit Number 13 Evaluation Information Evaluation Date 05/11/22 Precautions Precautions Cardiac arrhythmia s/p surgery , and being assessed for Cardiac arrhythmia. R TKA -rehab ending 02/13/22. PT-OP-B Current Condition Start: 05/09/22 16:15 Freq: Status: Active Protocol: Document 05/11/22 09:07 LRN (Rec: 05/11/22 09:47 LRN [id number]) Current Condition History of Current Condition Onset Date 04/27/22 Current Complaints Lack of L knee rom, pain-reqs med, hamstring tight, antalgic gt-FWW. History of Current Condition Pt is s/p L TKA on 04/27/22 and was in hospital 1 day but due to onset of A.Fib was kept in recovery for a few more hours . Wore a heart monitor for a week with removal tomorrow. States with her R TKA she had sinus arrythmia, otherwise no history of cardiac issues. Prior Treatments and Tests Eval and 3 treatments immediately after her TKA in [facility] prior to transfer to [facility]. PT was Reny Downs DPT. Future Testing and Treatments Planned Oil Well Engineer appt tomorrow. Treatment Goals Patient/Caregiver Goals Pt goals: - walk correctly without an assistive device. - Stairs with normal gait. - Transfer without assist of strap. Personal Factors Other Personal Factors That May Effect Pt s/p R TKA 12/10/21 with last Therapy/Recovery rehab treatment 02/13/22, ending with difficulty with sit to stand from lower surfaces. Pt being assessed currently for Cardiac arrhythmia. PT-OP-C Subjective Start: 05/09/22 16:15 Freq: Status: Active Protocol: Document 06/25/22 09:04 LRN (Rec: 06/25/22 09:51 LRN [id number]) OP-PT Subjective Patient Comments Patient Comments Wants to have less pain for son's wedding August 08. Pt states she is now doing stairs at home, one at a time. PT-OP-G Mobility & Gait Start: 05/09/22 16:15 Freq: Status: Active Protocol: Document 05/11/22 09:07 LRN (Rec: 05/11/22 09:47 LRN [id number]) OP Mobility Evaluation Bed Mobility Supine to and from Sit Independent with use of strap to help lift the LLE off the bed. Transfers Sit to Stand Independent with use of hands and FWW from higher surface. OP Gait Assessment Gait Gait Assistance Required: Independent Able to Maintain Weight Bearing Status Yes During Gait Assistive Devices Assistive Device Front Wheeled Walker Gait Deviations General Gait Pattern Antalgic,Decreased Stride Length,Flexed Trunk,Step-to Gait Stair Climbing Evaluation Devices Stair Climbing Assistive Devices Right Railing Technique/Endurance Stair Climbing Direction Ascend and Descend Stair Climbing Technique Step to Step Comments Stair Climbing Comments Ascending railing on R, Walking stick on L. PT-OP-H Neuro Start: 05/09/22 16:15 Freq: Status: Active Protocol: Document 05/11/22 09:07 LRN (Rec: 05/11/22 09:47 LRN [id number]) Sensation Evaluation Comments Summary Comments Sensation intact to soft touch in areas not covered by bandage. PT-OP-J Posture/Palpation/Skin Start: 05/09/22 16:15 Freq: Status: Active Protocol: Document 05/11/22 09:07 LRN (Rec: 05/11/22 09:47 LRN [id number]) Posture Evaluation Position Standing L-Spine Posture Flattened Weight Distribution Weight Shifted Right Hip Posture (L) Flexed,(R) Flexed Comments Posture Comments Pt assessed with use of FWW for balance support. Palpation Assessment Location L knee Palpation Location Areas around scar protective bandage. Palpation Details Sensation intact. Skin Assessment Other Assessments Skin Assessment Comments Patient wearing thigh-high MIRELA hose left LE. Pt incision covered with protective bandage. PT-OP-K Range of Motion Start: 05/09/22 16:15 Freq: Status: Active Protocol: Document 06/25/22 09:04 LRN (Rec: 06/25/22 09:51 LRN [id number]) Knee Goniometric Range of Motion Knee Left Knee ROM WFL No Patient Position Supine Flexion Passive (degrees) 120 PT-OP-M Strength Start: 05/09/22 16:15 Freq: Status: Active Protocol: Document 06/18/22 09:03 LRN (Rec: 06/18/22 09:47 LRN [id number]) Knee Strength Knee Manual Muscle Testing Left Flexion (S2) 3+ Fair+ Extension (L3) 3+ Fair+ PT-OP-Q Treatments Start: 05/09/22 16:15 Freq: Status: Active Protocol: Document 06/25/22 09:04 LRN (Rec: 06/25/22 09:51 LRN [id number]) Cardio Equipment Bicycle (Upright) Duration (Minutes) 8 Resistance 0 Seat Position 8 Other fwd/bwd for 5' before she was able to do revolutions Therapeutic Exercises Supine Exercises Knee flex stretch Supine Exercise Name AAROM & Holding stretch w/ ankle PF/DF/hip ER Side left Reps/Minutes 5x each, 2 sets. Heel slides Supine Exercise Name Heel slides Side left Resistance table Reps/Minutes x12 Comments cues for breathwork SLR Supine Exercise Name SLR Side left Reps/Minutes 10x 3 Comments training w/breathing, NMF, control eccentric Prone Exercises Femoral n. slider Prone Exercise Name Kick head up>head lift/knee flex Side left Resistance 0#, 1#, 3# Reps/Minutes 10x 3 L knee flexion Prone Exercise Name initiated in PT Side left Equipment Used w/ strap L foot Reps/Minutes 20 SH Comments good feedback initial quad stretch, then felt in knee- approx 110 deg Femoral n. tensioner Prone Exercise Name Kick head down>head lift/knee ext > same w/ankle DF Side left Reps/Minutes 5x 3 Manual Therapy Treatment Manual Techniques MWM for knee flexion Type PA of Tib/Fib with knee flexion Body Position Supine Reps/Duration 3' PT-OP-R Modalities Start: 05/09/22 16:15 Freq: Status: Active Protocol: Document 06/22/22 09:01 NBM (Rec: 06/22/22 09:54 NBM [id number]) Hot Pack/Cold Pack Treatment Cold Pack Location l knee Patient Position Hooklying Treatment Duration (minutes) 10 Patient Tolerance Good Comments top and bottom Legs up on bolster PT-OP-T Assessment and Plan Start: 05/09/22 16:15 Freq: Status: Active Protocol: Document 06/25/22 09:04 LRN (Rec: 06/25/22 09:51 LRN [id number]) Physical Therapy Assessment Goals Four Impairment L knee/hip weakness Impairment L knee strength: Flexion 2/5, Extension 2-/5 R knee strength: Flex/Ext is 5/5 Short Term Goal (STG) Improve L knee strength to at least 3+/5, with pt able to transfer out of bed without the use of a strap to move the LLE. 06/05/22: Pt moving LLE independent from R and use of UE's. STG Duration 06/26/22 (06/05/22: MET GOAL) [facility] Goal (LTG) Improve L knee strength to at least 4+/5 to allow patient to ambulate stairs with a normal gait. 06/18/22: Flex 3+/5, Ext 3+/5. LTG Duration 08/09/22 progressing 06/18/22 Three Impairment Decreased L knee AROM Impairment L knee AROM (deg's): 30-58, PROM (deg's): 6-70 R knee AROM (deg's): 6-116, PROM (deg's): 0 deg's extension. Short Term Goal (STG) Improve L knee PROM to 5-120 06/18/22: PROM to 5-111. 06/25/22: PROM flexion 120-122 deg's. STG Duration 06/26/22 (06/25/22: MET GOAL) Manager Costing Goal (LTG) Improve L knee PROM to 0-125 06/18/22: PROM supine 5-111; AROM siting 10-108 06/22/22: AROM flexion 114, PROM w/ overpressure and breathwork 117 LTG Duration 08/09/22 progressing 06/18/22 Two Impairment gait dysfunction Impairment Pt ambs with FWW, antalgic gait, lacks L ankle/knee mobility Short Term Goal (STG) Patient able to ambulate household distances with cane with min to no limp on level surfaces. 06/01/22: Pt walks with antalgic gait with FWW. 06/15/22: Pt demonstrates improved gait with valencia trekking poles but requires cues for step length and heel strike and neutral pelvis. 06/18/22: Antalgic gait with one trek pole. STG Duration 06/26/22 progressing 06/18/22 Manager Costing Goal (LTG) Pt will ambulate with a normal gait or very minimal antalgic gait without an assistive device. LTG Duration 08/09/22 One Impairment Lacks self care HEP Impairment patient requires use of FWW for gait and ambulates with stiff knee, antalgic gait Short Term Goal (STG) Pt will be educated in edema management. 05/28/22: Educated pt in RICE program. STG Duration 05/15/22 (05/28/22: MET GOAL) [facility] Goal (LTG) Pt will be independent with a self care HEP of L knee, ankle , hip ROM/strengthening ex's to address areas of deficit. 06/05/22: HEP: Femoral n. tensioner. Review of previous issued Sciatic n. slider/ tensioner. LTG Duration 08/09/22 progressed 06/05/22 Assessment Summary Assessment Pt L knee AROM has improved to 120 deg's flexion passive to 120 deg's flex active after therapy. Passive ROM from 120 to 122 deg's. Pt is independent with transfer on/ of plinth. Physical Therapy Plan Frequency and Duration Frequency of Treatment 2x/Week Plan of Care Start Date 06/18/22 Plan of Care End Date 07/24/22 Next Visit Focus/Plan Next Note Type Treatment Note Next Visit Plan 8' warm up recumbent bike. Gait with trek pole: assess 1 vs 2 and progress gait in mirror. Recheck AA/AROM. POC: Review transfer training for independence. L knee ROM, L ankle DF stretching, L hip strengthening. Stair training when appropriate mobility achieved. Progress HEP as tolerated including consider adding standing heel raises and marching. Modalities for pain management .
--- NOTE | 2022-06-29 11:39 | PT.OTN ---
Current Diagnoses Unilateral primary osteoarthritis, left knee (06/29/22) Physical Therapy Treatment Note PT-OP-A Visit Information Start: 05/09/22 16:15 Freq: Status: Active Protocol: Document 06/29/22 09:09 NBM (Rec: 06/29/22 09:46 NBM [id number]) Out-Patient Physical Therapy Visit Information Visit Information Visit Type Treatment Note Visit Start Time 09:05 Visit Stop Time 09:45 Total Visit Minutes 40 Visit Number 14 Number of HONING MACHINE OPERATOR SEMIAUTOMATIC Visits 1 Evaluation Information Evaluation Date 05/11/22 Precautions Precautions Cardiac arrhythmia s/p surgery , and being assessed for Cardiac arrhythmia. R TKA -rehab ending 02/13/22. PT-OP-B Current Condition Start: 05/09/22 16:15 Freq: Status: Active Protocol: Document 05/11/22 09:07 LRN (Rec: 05/11/22 09:47 LRN [id number]) Current Condition History of Current Condition Onset Date 04/27/22 Current Complaints Lack of L knee rom, pain-reqs med, hamstring tight, antalgic gt-FWW. History of Current Condition Pt is s/p L TKA on 04/27/22 and was in hospital 1 day but due to onset of A.Fib was kept in recovery for a few more hours . Wore a heart monitor for a week with removal tomorrow. States with her R TKA she had sinus arrythmia, otherwise no history of cardiac issues. Prior Treatments and Tests Eval and 3 treatments immediately after her TKA in [facility] prior to transfer to [facility]. PT was Reny Downs DPT. Future Testing and Treatments Planned Spread Cutter appt tomorrow. Treatment Goals Patient/Caregiver Goals Pt goals: - walk correctly without an assistive device. - Stairs with normal gait. - Transfer without assist of strap. Personal Factors Other Personal Factors That May Effect Pt s/p R TKA 12/10/21 with last Therapy/Recovery rehab treatment 02/13/22, ending with difficulty with sit to stand from lower surfaces. Pt being assessed currently for Cardiac arrhythmia. PT-OP-C Subjective Start: 05/09/22 16:15 Freq: Status: Active Protocol: Document 06/29/22 09:09 NBM (Rec: 06/29/22 09:46 NBM [id number]) OP-PT Subjective Patient Comments Patient Comments Pt reports she got to 120 deg , but she spent Wed and Wed cleaning and had back spasms in low back, and guests came over so I totally overdid it. She took spasm pill on and Wednesday. She did not ice as much as usual or get her ex's done consistently. I feel the tightness today. Her tylenol hasn't kicked in yet. Pt has to leave at 9:45 today for another appt. PT-OP-G Mobility & Gait Start: 05/09/22 16:15 Freq: Status: Active Protocol: Document 05/11/22 09:07 LRN (Rec: 05/11/22 09:47 LRN [id number]) OP Mobility Evaluation Bed Mobility Supine to and from Sit Independent with use of strap to help lift the LLE off the bed. Transfers Sit to Stand Independent with use of hands and FWW from higher surface. OP Gait Assessment Gait Gait Assistance Required: Independent Able to Maintain Weight Bearing Status Yes During Gait Assistive Devices Assistive Device Front Wheeled Walker Gait Deviations General Gait Pattern Antalgic,Decreased Stride Length,Flexed Trunk,Step-to Gait Stair Climbing Evaluation Devices Stair Climbing Assistive Devices Right Railing Technique/Endurance Stair Climbing Direction Ascend and Descend Stair Climbing Technique Step to Step Comments Stair Climbing Comments Ascending railing on R, Walking stick on L. PT-OP-H Neuro Start: 05/09/22 16:15 Freq: Status: Active Protocol: Document 05/11/22 09:07 LRN (Rec: 05/11/22 09:47 LRN [id number]) Sensation Evaluation Comments Summary Comments Sensation intact to soft touch in areas not covered by bandage. PT-OP-J Posture/Palpation/Skin Start: 05/09/22 16:15 Freq: Status: Active Protocol: Document 05/11/22 09:07 LRN (Rec: 05/11/22 09:47 LRN [id number]) Posture Evaluation Position Standing L-Spine Posture Flattened Weight Distribution Weight Shifted Right Hip Posture (L) Flexed,(R) Flexed Comments Posture Comments Pt assessed with use of FWW for balance support. Palpation Assessment Location L knee Palpation Location Areas around scar protective bandage. Palpation Details Sensation intact. Skin Assessment Other Assessments Skin Assessment Comments Patient wearing thigh-high MIRELA hose left LE. Pt incision covered with protective bandage. PT-OP-K Range of Motion Start: 05/09/22 16:15 Freq: Status: Active Protocol: Document 06/25/22 09:04 LRN (Rec: 06/25/22 09:51 LRN [id number]) Knee Goniometric Range of Motion Knee Left Knee ROM WFL No Patient Position Supine Flexion Passive (degrees) 120 PT-OP-M Strength Start: 05/09/22 16:15 Freq: Status: Active Protocol: Document 06/18/22 09:03 LRN (Rec: 06/18/22 09:47 LRN [id number]) Knee Strength Knee Manual Muscle Testing Left Flexion (S2) 3+ Fair+ Extension (L3) 3+ Fair+ PT-OP-Q Treatments Start: 05/09/22 16:15 Freq: Status: Active Protocol: Document 06/29/22 09:09 NBM (Rec: 06/29/22 09:46 NBM [id number]) Cardio Equipment Bicycle (Upright) Duration (Minutes) 10 Resistance 0 Seat Position 7 Other fwd/bwd for 7' before she was able to do revolutions Therapeutic Exercises Supine Exercises Knee flex stretch Supine Exercise Name AAROM & Holding stretch w/ ankle PF/DF/hip ER Side left Reps/Minutes 5x each, 2 sets. Heel slides Supine Exercise Name Heel slides Side left Resistance table Reps/Minutes x12 Comments cues for breathwork SLR Supine Exercise Name SLR Side left Reps/Minutes 10x 3 Comments training w/breathing, NMF, control eccentric Prone Exercises Femoral n. slider Prone Exercise Name Kick head up>head lift/knee flex Side left Resistance 0#, 1#, 3# Reps/Minutes 10x 3 L knee flexion Prone Exercise Name initiated in PT Side left Equipment Used w/ strap L foot Reps/Minutes 20 SH Comments good feedback initial quad stretch, then felt in knee- approx 110 deg Femoral n. tensioner Prone Exercise Name Kick head down>head lift/knee ext > same w/ankle DF Side left Reps/Minutes 5x 3 Standing Exercises Plantarflexor stretch Side bilateral Equipment Used YUMIKO Reps/Minutes x60s Comments + feedback response Gait Training Gait Activity Gait w/B trekking poles Device Used Uni E 3Guppiesing pole Level of Assistance SBA Surface carpet Distance/Duration 40 ft Treatment Focus cued tall posturing, core/quad /glut fac over stance LE Comments cues for step width and increased heel strike for glute facilitation. PT-OP-R Modalities Start: 05/09/22 16:15 Freq: Status: Active Protocol: Document 06/22/22 09:01 NB (Rec: 06/22/22 09:54 [facility] [id number]) Hot Pack/Cold Pack Treatment Cold Pack Location l knee Patient Position Hooklying Treatment Duration (minutes) 10 Patient Tolerance Good Comments top and bottom Legs up on bolster PT-OP-T Assessment and Plan Start: 05/09/22 16:15 Freq: Status: Active Protocol: Document 06/29/22 09:09 [facility] (Rec: 06/29/22 09:46 [facility] [id number]) Physical Therapy Assessment Impairments Impairments Activity Tolerance,Balance, Gait,Pain,ROM,Sensation,Soft Tissue Mobility,Strength Goals Four Impairment L knee/hip weakness Impairment L knee strength: Flexion 2/5, Extension 2-/5 R knee strength: Flex/Ext is 5/5 Short Term Goal (STG) Improve L knee strength to at least 3+/5, with pt able to transfer out of bed without the use of a strap to move the LLE. 06/05/22: Pt moving LLE independent from R and use of UE's. STG Duration 06/26/22 (06/05/22: MET GOAL) Tester Operator Helper Goal (LTG) Improve L knee strength to at least 4+/5 to allow patient to ambulate stairs with a normal gait. 06/18/22: Flex 3+/5, Ext 3+/5. LTG Duration 08/09/22 progressing 06/18/22 Three Impairment Decreased L knee AROM Impairment L knee AROM (deg's): 30-58, PROM (deg's): 6-70 R knee AROM (deg's): 6-116, PROM (deg's): 0 deg's extension. Short Term Goal (STG) Improve L knee PROM to 5-120 06/18/22: PROM to 5-111. 06/25/22: PROM flexion 120-122 deg's. STG Duration 06/26/22 (06/25/22: MET GOAL) Tester Operator Helper Goal (LTG) Improve L knee PROM to 0-125 06/18/22: PROM supine 5-111; AROM siting 10-108 06/22/22: AROM flexion 114, PROM w/ overpressure and breathwork 117 LTG Duration 08/09/22 progressing 06/18/22 Two Impairment gait dysfunction Impairment Pt ambs with FWW, antalgic gait, lacks L ankle/knee mobility Short Term Goal (STG) Patient able to ambulate household distances with cane with min to no limp on level surfaces. 06/01/22: Pt walks with antalgic gait with FWW. 06/15/22: Pt demonstrates improved gait with valencia trekking poles but requires cues for step length and heel strike and neutral pelvis. 06/18/22: Antalgic gait with one trek pole. 06/30/22: Antalgic gait w/ one trek pole RUE. STG Duration 06/26/22 progressing 06/18/22 Alf Goal (LTG) Pt will ambulate with a normal gait or very minimal antalgic gait without an assistive device. LTG Duration 08/09/22 One Impairment Lacks self care HEP Impairment patient requires use of FWW for gait and ambulates with stiff knee, antalgic gait Short Term Goal (STG) Pt will be educated in edema management. 05/28/22: Educated pt in RICE program. STG Duration 05/15/22 (05/28/22: MET GOAL) Alf Goal (LTG) Pt will be independent with a self care HEP of L knee, ankle , hip ROM/strengthening ex's to address areas of deficit. 06/05/22: HEP: Femoral n. tensioner. Review of previous issued Sciatic n. slider/ tensioner. LTG Duration 08/09/22 progressed 06/05/22 Assessment Summary Assessment Pt presents with more L knee pain today - treatment focus on HEP review, gait w/ trekking pole and progressing knee flexion. Pt requires cues for step width and increased heel strike for glute facilitation with RUE bilateral trekking pole. Pt's self-awareness of breathholding improves with initial cues with heelslides. Pt takes 7 minutes today to initiate full revolutions on upright bicycle increased from 5 minutes last visit but with seat lowered from level 8 to level 7. Physical Therapy Plan Frequency and Duration Frequency of Treatment 2x/Week Plan of Care Start Date 06/18/22 Plan of Care End Date 07/24/22 Therapeutic Interventions Therapeutic Interventions Balance Training,Gait Training ,Home Exercise Program,Manual Therapy,Patient/Caregiver Education,Self-Care/Home Management,Soft Tissue Mobilization,Taping, Therapeutic Activities, Therapeutic Exercises Modalities Cold Pack/Ice Massage,Hot Packs Next Visit Focus/Plan Next Note Type Treatment Note Next Visit Plan Consider resisted hip abd/ bandwalking to improve step width w/ gait. POC: 8' warm up recumbent bike . Gait with trek pole: assess 1 vs 2 and progress gait in mirror. Recheck AA/AROM. POC: Review transfer training for independence. L knee ROM, L ankle DF stretching, L hip strengthening. Stair training when appropriate mobility achieved. Progress HEP as tolerated including consider adding standing heel raises and marching. Modalities for pain management .
--- NOTE | 2022-07-02 16:36 | PT.OTN ---
Current Diagnoses Unilateral primary osteoarthritis, left knee (07/02/22) Physical Therapy Treatment Note PT-OP-A Visit Information Start: 05/09/22 16:15 Freq: Status: Active Protocol: Document 07/02/22 09:08 LRN (Rec: 07/02/22 09:52 LRN [id number]) Out-Patient Physical Therapy Visit Information Visit Information Visit Type Treatment Note Visit Note 4 after PN Visit Start Time 09:08 Visit Stop Time 09:48 Total Visit Minutes 40 Visit Number 15 Evaluation Information Evaluation Date 05/11/22 Precautions Precautions Cardiac arrhythmia s/p surgery , and being assessed for Cardiac arrhythmia. R TKA -rehab ending 02/13/22. PT-OP-B Current Condition Start: 05/09/22 16:15 Freq: Status: Active Protocol: Document 05/11/22 09:07 LRN (Rec: 05/11/22 09:47 LRN [id number]) Current Condition History of Current Condition Onset Date 04/27/22 Current Complaints Lack of L knee rom, pain-reqs med, hamstring tight, antalgic gt-FWW. History of Current Condition Pt is s/p L TKA on 04/27/22 and was in hospital 1 day but due to onset of A.Fib was kept in recovery for a few more hours . Wore a heart monitor for a week with removal tomorrow. States with her R TKA she had sinus arrythmia, otherwise no history of cardiac issues. Prior Treatments and Tests Eval and 3 treatments immediately after her TKA in [facility] prior to transfer to [facility]. PT was Reny Downs DPT. Future Testing and Treatments Planned [employer] Supervisor appt tomorrow. Treatment Goals Patient/Caregiver Goals Pt goals: - walk correctly without an assistive device. - Stairs with normal gait. - Transfer without assist of strap. Personal Factors Other Personal Factors That May Effect Pt s/p R TKA 12/10/21 with last Therapy/Recovery rehab treatment 02/13/22, ending with difficulty with sit to stand from lower surfaces. Pt being assessed currently for Cardiac arrhythmia. PT-OP-C Subjective Start: 05/09/22 16:15 Freq: Status: Active Protocol: Document 07/02/22 09:08 LRN (Rec: 07/02/22 09:52 LRN [id number]) OP-PT Subjective Patient Comments Patient Comments Did not ex yesterday because gone all day. Not as stiff in L knee waking up today and didn't ice the knee. PT-OP-G Mobility & Gait Start: 05/09/22 16:15 Freq: Status: Active Protocol: Document 05/11/22 09:07 LRN (Rec: 05/11/22 09:47 LRN [id number]) OP Mobility Evaluation Bed Mobility Supine to and from Sit Independent with use of strap to help lift the LLE off the bed. Transfers Sit to Stand Independent with use of hands and FWW from higher surface. OP Gait Assessment Gait Gait Assistance Required: Independent Able to Maintain Weight Bearing Status Yes During Gait Assistive Devices Assistive Device Front Wheeled Walker Gait Deviations General Gait Pattern Antalgic,Decreased Stride Length,Flexed Trunk,Step-to Gait Stair Climbing Evaluation Devices Stair Climbing Assistive Devices Right Railing Technique/Endurance Stair Climbing Direction Ascend and Descend Stair Climbing Technique Step to Step Comments Stair Climbing Comments Ascending railing on R, Walking stick on L. PT-OP-H Neuro Start: 05/09/22 16:15 Freq: Status: Active Protocol: Document 05/11/22 09:07 LRN (Rec: 05/11/22 09:47 LRN [id number]) Sensation Evaluation Comments Summary Comments Sensation intact to soft touch in areas not covered by bandage. PT-OP-J Posture/Palpation/Skin Start: 05/09/22 16:15 Freq: Status: Active Protocol: Document 05/11/22 09:07 LRN (Rec: 05/11/22 09:47 LRN [id number]) Posture Evaluation Position Standing L-Spine Posture Flattened Weight Distribution Weight Shifted Right Hip Posture (L) Flexed,(R) Flexed Comments Posture Comments Pt assessed with use of FWW for balance support. Palpation Assessment Location L knee Palpation Location Areas around scar protective bandage. Palpation Details Sensation intact. Skin Assessment Other Assessments Skin Assessment Comments Patient wearing thigh-high MIRELA hose left LE. Pt incision covered with protective bandage. PT-OP-K Range of Motion Start: 05/09/22 16:15 Freq: Status: Active Protocol: Document 06/25/22 09:04 LRN (Rec: 06/25/22 09:51 LRN [id number]) Knee Goniometric Range of Motion Knee Left Knee ROM WFL No Patient Position Supine Flexion Passive (degrees) 120 PT-OP-M Strength Start: 05/09/22 16:15 Freq: Status: Active Protocol: Document 06/18/22 09:03 LRN (Rec: 06/18/22 09:47 LRN [id number]) Knee Strength Knee Manual Muscle Testing Left Flexion (S2) 3+ Fair+ Extension (L3) 3+ Fair+ PT-OP-Q Treatments Start: 05/09/22 16:15 Freq: Status: Active Protocol: Document 07/02/22 09:08 LRN (Rec: 07/02/22 09:52 LRN [id number]) Cardio Equipment Bicycle (Upright) Duration (Minutes) 10 Resistance 0 Seat Position 7 Other 3' @ seat 8, 7' at seat 6 Therapeutic Exercises Supine Exercises Heel slides Supine Exercise Name Heel slides with assist w/belt Side left Resistance table Reps/Minutes 10' Comments cues for breathwork, MWM Prone Exercises Femoral n. slider Prone Exercise Name Kick head up>head lift/knee flex Side left Resistance 0#, 2#, 3# Reps/Minutes 10x 3 Femoral n. tensioner Prone Exercise Name Kick head down>head lift/knee ext > same w/ankle DF Side left Equipment Used 2#, 3# Reps/Minutes 10x each Hip Ext Prone Exercise Name Hip Ext Side bilateral Reps/Minutes 10x Standing Exercises ECC knee ext Standing Exercise Name ECC knee ext Side left Equipment Used Gr TBand behind the distal thigh Reps/Minutes 5 SH x 15 R hip hike Standing Exercise Name Standing LLE for R hip hike Reps/Minutes 3' Gait Training Gait Activity Gait w/B trekking poles Description Gait training w/1 trek pole. Device Used Uni RUE trekking pole Level of Assistance SBA Surface carpet Distance/Duration 5' Treatment Focus cued hip shift & core/quad/ glut fac over stance LE Comments cues for step width and increased heel strike for glute facilitation. PT-OP-R Modalities Start: 05/09/22 16:15 Freq: Status: Active Protocol: Document 06/22/22 09:01 NBM (Rec: 06/22/22 09:54 NBM [id number]) Hot Pack/Cold Pack Treatment Cold Pack Location l knee Patient Position Hooklying Treatment Duration (minutes) 10 Patient Tolerance Good Comments top and bottom Legs up on bolster PT-OP-T Assessment and Plan Start: 05/09/22 16:15 Freq: Status: Active Protocol: Document 07/02/22 09:08 LRN (Rec: 07/02/22 09:52 LRN [id number]) Physical Therapy Assessment Goals Four Impairment L knee/hip weakness Impairment L knee strength: Flexion 2/5, Extension 2-/5 R knee strength: Flex/Ext is 5/5 Short Term Goal (STG) Improve L knee strength to at least 3+/5, with pt able to transfer out of bed without the use of a strap to move the LLE. 06/05/22: Pt moving LLE independent from R and use of UE's. STG Duration 06/26/22 (06/05/22: MET GOAL) Construction Safety Consultant Goal (LTG) Improve L knee strength to at least 4+/5 to allow patient to ambulate stairs with a normal gait. 06/18/22: Flex 3+/5, Ext 3+/5. LTG Duration 08/09/22 progressing 06/18/22 Three Impairment Decreased L knee AROM Impairment L knee AROM (deg's): 30-58, PROM (deg's): 6-70 R knee AROM (deg's): 6-116, PROM (deg's): 0 deg's extension. Short Term Goal (STG) Improve L knee PROM to 5-120 06/18/22: PROM to 5-111. 06/25/22: PROM flexion 120-122 deg's. STG Duration 06/26/22 (06/25/22: MET GOAL) Construction Safety Consultant Goal (LTG) Improve L knee PROM to 0-125 06/18/22: PROM supine 5-111; AROM siting 10-108 06/22/22: AROM flexion 114, PROM w/ overpressure and breathwork 117. 07/02/22: AROM supine flex is 120 degs' LTG Duration 08/09/22 progressing 07/02/22 Two Impairment gait dysfunction Impairment Pt ambs with FWW, antalgic gait, lacks L ankle/knee mobility Short Term Goal (STG) Patient able to ambulate household distances with cane with min to no limp on level surfaces. 06/01/22: Pt walks with antalgic gait with FWW. 06/15/22: Pt demonstrates improved gait with valencia trekking poles but requires cues for step length and heel strike and neutral pelvis. 06/18/22: Antalgic gait with one trek pole. 06/30/22: Antalgic gait w/ one trek pole RUE. 07/02/22: Walking around home with and w/o trekking pole. STG Duration 06/26/22 progressing 07/02/22 Shelter Goal (LTG) Pt will ambulate with a normal gait or very minimal antalgic gait without an assistive device. LTG Duration 08/09/22 One Impairment Lacks self care HEP Impairment patient requires use of FWW for gait and ambulates with stiff knee, antalgic gait Short Term Goal (STG) Pt will be educated in edema management. 05/28/22: Educated pt in RICE program. STG Duration 05/15/22 (05/28/22: MET GOAL) Shelter Goal (LTG) Pt will be independent with a self care HEP of L knee, ankle , hip ROM/strengthening ex's to address areas of deficit. 06/05/22: HEP: Femoral n. tensioner. Review of previous issued Sciatic n. slider/ tensioner. LTG Duration 08/09/22 progressed 06/05/22 Assessment Summary Assessment L knee supine: AROM is 120 deg 's, AAROM is 121 deg's. Pt able to tolerated bike seat as low as 6 by end of ex time. Pt gait: lacks R hip shift, possibly due to weak TFL/Glut minimus & medius and out of habit. Further training to reduce pt habitual gait pattern and strengthen hip AB' s. Physical Therapy Plan Frequency and Duration Frequency of Treatment 2x/Week Plan of Care Start Date 06/18/22 Plan of Care End Date 07/24/22 Next Visit Focus/Plan Next Note Type Treatment Note Next Visit Plan Add resisted hip abd with squat side stepping (hold on bandwalking until good wgt shifting is obtained with trunk/hip posture controlled), improve hip abductor strength to improve step width w/gait. Check L ankle DF for need of stretching. POC: 10' warm up recumbent bike (seat hgt 6 if tolerated) . Gait with 1 trek pole and progress gait in mirror. Monitor AA/AROM. HEP? need for standing heel raises and marching POC: L TKA rehab for L knee ROM, L hip strengthening. Stair training when appropriate mobility achieved. Modalities for pain management .
--- NOTE | 2022-07-06 10:34 | PT.OTN ---
Current Diagnoses Unilateral primary osteoarthritis, left knee (07/06/22) Physical Therapy Treatment Note PT-OP-A Visit Information Start: 05/09/22 16:15 Freq: Status: Active Protocol: Document 07/06/22 09:37 NBM (Rec: 07/06/22 10:34 NBM [id number]) Out-Patient Physical Therapy Visit Information Visit Information Visit Type Treatment Note Visit Note 5 after PN Pt late. Visit Start Time 09:54 Visit Stop Time 10:29 Total Visit Minutes 35 Visit Number 16 Number of STITCH BONDING MACHINE DRAWER IN Visits 1 Evaluation Information Evaluation Date 05/11/22 Precautions Precautions Cardiac arrhythmia s/p surgery , and being assessed for Cardiac arrhythmia. R TKA -rehab ending 02/13/22. PT-OP-B Current Condition Start: 05/09/22 16:15 Freq: Status: Active Protocol: Document 05/11/22 09:07 LRN (Rec: 05/11/22 09:47 LRN [id number]) Current Condition History of Current Condition Onset Date 04/27/22 Current Complaints Lack of L knee rom, pain-reqs med, hamstring tight, antalgic gt-FWW. History of Current Condition Pt is s/p L TKA on 04/27/22 and was in hospital 1 day but due to onset of A.Fib was kept in recovery for a few more hours . Wore a heart monitor for a week with removal tomorrow. States with her R TKA she had sinus arrythmia, otherwise no history of cardiac issues. Prior Treatments and Tests Eval and 3 treatments immediately after her TKA in [facility] prior to transfer to [facility]. PT was Reny Downs DPT. Future Testing and Treatments Planned Pitch Filler appt tomorrow. Treatment Goals Patient/Caregiver Goals Pt goals: - walk correctly without an assistive device. - Stairs with normal gait. - Transfer without assist of strap. Personal Factors Other Personal Factors That May Effect Pt s/p R TKA 12/10/21 with last Therapy/Recovery rehab treatment 02/13/22, ending with difficulty with sit to stand from lower surfaces. Pt being assessed currently for Cardiac arrhythmia. PT-OP-C Subjective Start: 05/09/22 16:15 Freq: Status: Active Protocol: Document 07/06/22 09:37 NBM (Rec: 07/06/22 10:34 NBM [id number]) OP-PT Subjective Patient Comments Patient Comments Pt reports she didn't do any ex's yesterday or this morning except for stepper due to having family over and getting up late today. She slept wrong and her neck is sore. She just took tylenol before coming to PT. PT-OP-G Mobility & Gait Start: 05/09/22 16:15 Freq: Status: Active Protocol: Document 05/11/22 09:07 LRN (Rec: 05/11/22 09:47 [facility] [id number]) OP Mobility Evaluation Bed Mobility Supine to and from Sit Independent with use of strap to help lift the LLE off the bed. Transfers Sit to Stand Independent with use of hands and FWW from higher surface. OP Gait Assessment Gait Gait Assistance Required: Independent Able to Maintain Weight Bearing Status Yes During Gait Assistive Devices Assistive Device Front Wheeled Walker Gait Deviations General Gait Pattern Antalgic,Decreased Stride Length,Flexed Trunk,Step-to Gait Stair Climbing Evaluation Devices Stair Climbing Assistive Devices Right Railing Technique/Endurance Stair Climbing Direction Ascend and Descend Stair Climbing Technique Step to Step Comments Stair Climbing Comments Ascending railing on R, Walking stick on L. PT-OP-H Neuro Start: 05/09/22 16:15 Freq: Status: Active Protocol: Document 05/11/22 09:07 LRN (Rec: 05/11/22 09:47 N [id number]) Sensation Evaluation Comments Summary Comments Sensation intact to soft touch in areas not covered by bandage. PT-OP-J Posture/Palpation/Skin Start: 05/09/22 16:15 Freq: Status: Active Protocol: Document 05/11/22 09:07 LRN (Rec: 05/11/22 09:47 N [id number]) Posture Evaluation Position Standing L-Spine Posture Flattened Weight Distribution Weight Shifted Right Hip Posture (L) Flexed,(R) Flexed Comments Posture Comments Pt assessed with use of FWW for balance support. Palpation Assessment Location L knee Palpation Location Areas around scar protective bandage. Palpation Details Sensation intact. Skin Assessment Other Assessments Skin Assessment Comments Patient wearing thigh-high MIREAL hose left LE. Pt incision covered with protective bandage. PT-OP-K Range of Motion Start: 05/09/22 16:15 Freq: Status: Active Protocol: Document 06/25/22 09:04 LRN (Rec: 06/25/22 09:51 LRN [id number]) Knee Goniometric Range of Motion Knee Left Knee ROM WFL No Patient Position Supine Flexion Passive (degrees) 120 PT-OP-M Strength Start: 05/09/22 16:15 Freq: Status: Active Protocol: Document 06/18/22 09:03 LRN (Rec: 06/18/22 09:47 LRN [id number]) Knee Strength Knee Manual Muscle Testing Left Flexion (S2) 3+ Fair+ Extension (L3) 3+ Fair+ PT-OP-Q Treatments Start: 05/09/22 16:15 Freq: Status: Active Protocol: Document 07/06/22 09:37 NBM (Rec: 07/06/22 10:34 NBM [id number]) Cardio Equipment Bicycle (Upright) Duration (Minutes) 10 Resistance 0>2 Seat Position 6 first 6 min>7 last 4 min Other pt unable to do a revolution w / seate lvl 6, but full revs Lvl 7. Therapeutic Exercises Standing Exercises hip abduction Standing Exercise Name squat position - added to HEP Side bilateral Resistance Lvl 1 Tb Equipment Used rail support Reps/Minutes 2x10 ea Comments vc for excessive L hip external rot ECC knee ext Standing Exercise Name ECC knee ext (Terminal Knee Extension) Side left Equipment Used Gr TBand behind the distal thigh Reps/Minutes 5 SH x 15 Plantarflexor stretch Side bilateral Equipment Used YUMIKO Reps/Minutes x60s Comments + feedback response hip extension Standing Exercise Name added to HEP Side bilateral Resistance LVl 1 Tb Equipment Used rail support Reps/Minutes 1 sec pause contraction 2x10 reps Comments vc for upright posture, neutral foot Self-Care/Home Management Treatment Education Patient Education Home Exercise Program Other Education Added to HEP: resisted hip extension and abduction, side stepping in squat position - HO and [place] TB given. PT-OP-R Modalities Start: 05/09/22 16:15 Freq: Status: Active Protocol: Document 06/22/22 09:01 NBM (Rec: 06/22/22 09:54 NBM [id number]) Hot Pack/Cold Pack Treatment Cold Pack Location l knee Patient Position Hooklying Treatment Duration (minutes) 10 Patient Tolerance Good Comments top and bottom Legs up on bolster PT-OP-T Assessment and Plan Start: 05/09/22 16:15 Freq: Status: Active Protocol: Document 07/06/22 09:37 [facility] (Rec: 07/06/22 10:34 [facility] [id number]) Physical Therapy Assessment Impairments Impairments Activity Tolerance,Balance, Gait,Pain,ROM,Sensation,Soft Tissue Mobility,Strength Goals Four Impairment L knee/hip weakness Impairment L knee strength: Flexion 2/5, Extension 2-/5 R knee strength: Flex/Ext is 5/5 Short Term Goal (STG) Improve L knee strength to at least 3+/5, with pt able to transfer out of bed without the use of a strap to move the LLE. 06/05/22: Pt moving LLE independent from R and use of UE's. STG Duration 06/26/22 (06/05/22: MET GOAL) [facility]ci Goal (LTG) Improve L knee strength to at least 4+/5 to allow patient to ambulate stairs with a normal gait. 06/18/22: Flex 3+/5, Ext 3+/5. LTG Duration 08/09/22 progressing 06/18/22 Three Impairment Decreased L knee AROM Impairment L knee AROM (deg's): 30-58, PROM (deg's): 6-70 R knee AROM (deg's): 6-116, PROM (deg's): 0 deg's extension. Short Term Goal (STG) Improve L knee PROM to 5-120 06/18/22: PROM to 5-111. 06/25/22: PROM flexion 120-122 deg's. STG Duration 06/26/22 (06/25/22: MET GOAL) [facility]ci Goal (LTG) Improve L knee PROM to 0-125 06/18/22: PROM supine 5-111; AROM siting 10-108 06/22/22: AROM flexion 114, PROM w/ overpressure and breathwork 117. 07/02/22: AROM supine flex is 120 degs' LTG Duration 08/09/22 progressing 07/02/22 Two Impairment gait dysfunction Impairment Pt ambs with FWW, antalgic gait, lacks L ankle/knee mobility Short Term Goal (STG) Patient able to ambulate household distances with cane with min to no limp on level surfaces. 06/01/22: Pt walks with antalgic gait with FWW. 06/15/22: Pt demonstrates improved gait with valencia trekking poles but requires cues for step length and heel strike and neutral pelvis. 06/18/22: Antalgic gait with one trek pole. 06/30/22: Antalgic gait w/ one trek pole RUE. 07/02/22: Walking around home with and w/o trekking pole. STG Duration 06/26/22 progressing 07/02/22 [facility]ci Goal (LTG) Pt will ambulate with a normal gait or very minimal antalgic gait without an assistive device. LTG Duration 08/09/22 One Impairment Lacks self care HEP Impairment patient requires use of FWW for gait and ambulates with stiff knee, antalgic gait Short Term Goal (STG) Pt will be educated in edema management. 05/28/22: Educated pt in RICE program. STG Duration 05/15/22 (05/28/22: MET GOAL) [facility]ci Goal (LTG) Pt will be independent with a self care HEP of L knee, ankle , hip ROM/strengthening ex's to address areas of deficit. 06/05/22: HEP: Femoral n. tensioner. Review of previous issued Sciatic n. slider/ tensioner. LTG Duration 08/09/22 progressed 06/05/22 Assessment Summary Assessment Pt is unable to do a full revolution on upright bicycle today at seat level 6 after 6 min, but can do full revolutions immediately at seat Level 7 with increased resistance from level 0 to 2. Pt's L terminal knee extension improves with tactile cueing for full extension. Added to HEP: resisted hip extension and abduction, side stepping in squat position - HO and [place] TB given. Short session today due to pt arriving late . Physical Therapy Plan Frequency and Duration Frequency of Treatment 2x/Week Plan of Care Start Date 06/18/22 Plan of Care End Date 07/24/22 Therapeutic Interventions Therapeutic Interventions Balance Training,Gait Training ,Home Exercise Program,Manual Therapy,Patient/Caregiver Education,Self-Care/Home Management,Soft Tissue Mobilization,Taping, Therapeutic Activities, Therapeutic Exercises Modalities Cold Pack/Ice Massage,Hot Packs Next Visit Focus/Plan Next Note Type Treatment Note Next Visit Plan Add resisted hip abd with squat side stepping (hold on bandwalking until good wgt shifting is obtained with trunk/hip posture controlled), improve hip abductor strength to improve step width w/gait. Check L ankle DF for need of stretching. POC: 10' warm up recumbent bike (seat hgt 6 if tolerated) . Gait with 1 trek pole and progress gait in mirror. Monitor AA/AROM. HEP? need for standing heel raises and marching POC: L TKA rehab for L knee ROM, L hip strengthening. Stair training when appropriate mobility achieved. Modalities for pain management .
--- NOTE | 2022-07-09 09:48 | PT.OTN ---
Current Diagnoses Unilateral primary osteoarthritis, left knee (07/09/22) Physical Therapy Treatment Note PT-OP-A Visit Information Start: 05/09/22 16:15 Freq: Status: Active Protocol: Document 07/09/22 09:02 SP (Rec: 07/09/22 09:50 SP [id number]) Out-Patient Physical Therapy Visit Information Visit Information Visit Type Treatment Note Visit Note 6 after PN Visit Start Time 09:02 Visit Stop Time 09:48 Total Visit Minutes 46 Visit Number 17 Number of FRUIT DRYER Visits 2 Evaluation Information Evaluation Date 05/11/22 Precautions Precautions Cardiac arrhythmia s/p surgery , and being assessed for Cardiac arrhythmia. R TKA -rehab ending 02/13/22. PT-OP-B Current Condition Start: 05/09/22 16:15 Freq: Status: Active Protocol: Document 05/11/22 09:07 LRN (Rec: 05/11/22 09:47 LRN [id number]) Current Condition History of Current Condition Onset Date 04/27/22 Current Complaints Lack of L knee rom, pain-reqs med, hamstring tight, antalgic gt-FWW. History of Current Condition Pt is s/p L TKA on 04/27/22 and was in hospital 1 day but due to onset of A.Fib was kept in recovery for a few more hours . Wore a heart monitor for a week with removal tomorrow. States with her R TKA she had sinus arrythmia, otherwise no history of cardiac issues. Prior Treatments and Tests Eval and 3 treatments immediately after her TKA in [facility] prior to transfer to [facility]. PT was Reny Downs DPT. Future Testing and Treatments Planned Mortgage Loan Closer appt tomorrow. Treatment Goals Patient/Caregiver Goals Pt goals: - walk correctly without an assistive device. - Stairs with normal gait. - Transfer without assist of strap. Personal Factors Other Personal Factors That May Effect Pt s/p R TKA 12/10/21 with last Therapy/Recovery rehab treatment 02/13/22, ending with difficulty with sit to stand from lower surfaces. Pt being assessed currently for Cardiac arrhythmia. PT-OP-C Subjective Start: 05/09/22 16:15 Freq: Status: Active Protocol: Document 07/09/22 09:02 SP (Rec: 07/09/22 09:50 SP [id number]) OP-PT Subjective Patient Comments Patient Comments Pt reports warmed up on her Nustep before PT today. She was visiting daughter and forgot her trek pole to use and found limping holding nearby furniture and L knee medial sore and didn't sleep as well last night. Pt reports will finish scheduled visits then DC to another facility closer to her daughter, needing help with grandchildren. PT-OP-G Mobility & Gait Start: 05/09/22 16:15 Freq: Status: Active Protocol: Document 05/11/22 09:07 LRN (Rec: 05/11/22 09:47 LRN [id number]) OP Mobility Evaluation Bed Mobility Supine to and from Sit Independent with use of strap to help lift the LLE off the bed. Transfers Sit to Stand Independent with use of hands and FWW from higher surface. OP Gait Assessment Gait Gait Assistance Required: Independent Able to Maintain Weight Bearing Status Yes During Gait Assistive Devices Assistive Device Front Wheeled Walker Gait Deviations General Gait Pattern Antalgic,Decreased Stride Length,Flexed Trunk,Step-to Gait Stair Climbing Evaluation Devices Stair Climbing Assistive Devices Right Railing Technique/Endurance Stair Climbing Direction Ascend and Descend Stair Climbing Technique Step to Step Comments Stair Climbing Comments Ascending railing on R, Walking stick on L. PT-OP-H Neuro Start: 05/09/22 16:15 Freq: Status: Active Protocol: Document 05/11/22 09:07 LRN (Rec: 05/11/22 09:47 LRN [id number]) Sensation Evaluation Comments Summary Comments Sensation intact to soft touch in areas not covered by bandage. PT-OP-J Posture/Palpation/Skin Start: 05/09/22 16:15 Freq: Status: Active Protocol: Document 05/11/22 09:07 LRN (Rec: 05/11/22 09:47 LRN [id number]) Posture Evaluation Position Standing L-Spine Posture Flattened Weight Distribution Weight Shifted Right Hip Posture (L) Flexed,(R) Flexed Comments Posture Comments Pt assessed with use of FWW for balance support. Palpation Assessment Location L knee Palpation Location Areas around scar protective bandage. Palpation Details Sensation intact. Skin Assessment Other Assessments Skin Assessment Comments Patient wearing thigh-high MIRELA hose left LE. Pt incision covered with protective bandage. PT-OP-K Range of Motion Start: 05/09/22 16:15 Freq: Status: Active Protocol: Document 07/09/22 09:02 SP (Rec: 07/09/22 09:50 SP [id number]) Knee Goniometric Range of Motion Knee Left Knee ROM WFL No Patient Position Supine Flexion Active (degrees) 115 Flexion Passive (degrees) 120 Extension Active (degrees) 1 Comments post exercises L knee: AROM: 1.5-115 deg AAROM: 120 deg flexion PT-OP-M Strength Start: 05/09/22 16:15 Freq: Status: Active Protocol: Document 06/18/22 09:03 LRN (Rec: 06/18/22 09:47 LRN [id number]) Knee Strength Knee Manual Muscle Testing Left Flexion (S2) 3+ Fair+ Extension (L3) 3+ Fair+ PT-OP-Q Treatments Start: 05/09/22 16:15 Freq: Status: Active Protocol: Document 07/09/22 09:02 SP (Rec: 07/09/22 09:50 SP [id number]) Cardio Equipment Bicycle (Upright) Duration (Minutes) 10 Seat Position 5 min seat 7, 7 min seat 6, last 2 min seat 5 Other full revolution entire time. Gym Equipment Shuttle Recovery unilateral Details L cued knee alignment more lateral Resistance L 25#, R 25#>37# Reps/Time L 2x10 Rx10, breathwork Bilateral Squats Details cued knees with midfoot ( unblocked) Resistance 50# (old bands) Shuttle Recovery Platform Stable Reps/Time x20 (104 deg flexion L knee ) Gait Training Gait Activity Stairs Description 6 training steps Device Used RUE handrail Level of Assistance SBA Distance/Duration 4 laps 4 stairs ascend/descend Treatment Focus weight distribution, sequencing, upright posture Comments receiprocal stepping, cues quad/glut fac asd, slower eccentric L knee flexion during RLE advancement descending. Improved no limp ascend. no AD Description gait phases in mirror Device Used 0 Level of Assistance S Distance/Duration 20 ft x 6 laps Treatment Focus tall posturing over stance LE, L knee/hip flexion advance, quad/glut fac Comments cued tall posturing, core/quad /glut fac over stance LE, no trunk wt shifting, level pelvis to normalize gait. Improved almost no limp or SB R. Self-Care/Home Management Treatment Education Patient Education Home Exercise Program Other Education Time spent education of continued use of strap for heel slides and AAROM L knee, stopped using after first few weeks of PT stated. Pt would benefit from continued use of self progressionin ROM, good understanding. PT-OP-R Modalities Start: 05/09/22 16:15 Freq: Status: Active Protocol: Document 06/22/22 09:01 NBM (Rec: 06/22/22 09:54 NBM [id number]) Hot Pack/Cold Pack Treatment Cold Pack Location l knee Patient Position Hooklying Treatment Duration (minutes) 10 Patient Tolerance Good Comments top and bottom Legs up on bolster PT-OP-T Assessment and Plan Start: 05/09/22 16:15 Freq: Status: Active Protocol: Document 07/09/22 09:02 SP (Rec: 07/09/22 09:50 SP [id number]) Physical Therapy Assessment Goals Four Impairment L knee/hip weakness Impairment L knee strength: Flexion 2/5, Extension 2-/5 R knee strength: Flex/Ext is 5/5 Short Term Goal (STG) Improve L knee strength to at least 3+/5, with pt able to transfer out of bed without the use of a strap to move the LLE. 06/05/22: Pt moving LLE independent from R and use of UE's. STG Duration 06/26/22 (06/05/22: MET GOAL) Detention Goal (LTG) Improve L knee strength to at least 4+/5 to allow patient to ambulate stairs with a normal gait. 06/18/22: Flex 3+/5, Ext 3+/5. 07/09/22: able to receiprocal stepping RHR, decreased stance time LLE descending RLE. LTG Duration 08/09/22 progressing 07/09/22 Three Impairment Decreased L knee AROM Impairment L knee AROM (deg's): 30-58, PROM (deg's): 6-70 R knee AROM (deg's): 6-116, PROM (deg's): 0 deg's extension. Short Term Goal (STG) Improve L knee PROM to 5-120 06/18/22: PROM to 5-111. 06/25/22: PROM flexion 120-122 deg's. STG Duration 06/26/22 (06/25/22: MET GOAL) Detention Goal (LTG) Improve L knee PROM to 0-125 06/18/22: PROM supine 5-111; AROM siting 10-108 06/22/22: AROM flexion 114, PROM w/ overpressure and breathwork 117. 07/02/22: AROM supine flex is 120 degs' 07/09/22: L knee AROM 1.5-115 deg, AAROM 120 deg LTG Duration 08/09/22 progressing 07/09/22 Two Impairment gait dysfunction Impairment Pt ambs with FWW, antalgic gait, lacks L ankle/knee mobility Short Term Goal (STG) Patient able to ambulate household distances with cane with min to no limp on level surfaces. 06/01/22: Pt walks with antalgic gait with FWW. 06/15/22: Pt demonstrates improved gait with valencia trekking poles but requires cues for step length and heel strike and neutral pelvis. 06/18/22: Antalgic gait with one trek pole. 06/30/22: Antalgic gait w/ one trek pole RUE. 07/02/22: Walking around home with and w/o trekking pole. 07/09/22: almost no limp with cues for posturing COG over stance LLE in mirror without AD. STG Duration 06/26/22 progressing 07/09/22 Loft Worker Head Goal (LTG) Pt will ambulate with a normal gait or very minimal antalgic gait without an assistive device. 4 LTG Duration 08/09/22 One Impairment Lacks self care HEP Impairment patient requires use of FWW for gait and ambulates with stiff knee, antalgic gait Short Term Goal (STG) Pt will be educated in edema management. 05/28/22: Educated pt in RICE program. STG Duration 05/15/22 (05/28/22: MET GOAL) Loft Worker Head Goal (LTG) Pt will be independent with a self care HEP of L knee, ankle , hip ROM/strengthening ex's to address areas of deficit. 06/05/22: HEP: Femoral n. tensioner. Review of previous issued Sciatic n. slider/ tensioner. 07/09/22: ed for continued use of strap for heel slides and AAROM into L knee flexion. LTG Duration 08/09/22 progressed 07/09/22 Assessment Summary Assessment Pt making gains on ROM L knee, able to complete full revolutions on upright bike. Pt improved very little SB during gait in mirror after postural cuing without UE support of trek pole but need to be intentionally aware. Pt is able to ascend/descend stairs 1 HR with no additional use trek pole. Physical Therapy Plan Frequency and Duration Frequency of Treatment 2x/Week Plan of Care Start Date 06/18/22 Plan of Care End Date 07/24/22 Therapeutic Interventions Therapeutic Interventions Balance Training,Gait Training ,Home Exercise Program,Manual Therapy,Patient/Caregiver Education,Self-Care/Home Management,Soft Tissue Mobilization,Taping, Therapeutic Activities, Therapeutic Exercises Modalities Cold Pack/Ice Massage,Hot Packs Next Visit Focus/Plan Next Note Type Treatment Note Next Visit Plan Add hip abd strengthening on side to support medial knee recruitment and cuing for alignment awareness with functional ther ex. Check L ankle DF for need of stretching. Continue:10' warm up recumbent bike (seat hgt 4-5 if tolerated). Gait with no trek pole and progress gait in mirror. Descend stair mgt L knee flexion Monitor AA/AROM. HEP? need for standing heel raises and marching POC: L TKA rehab for L knee ROM, L hip strengthening. Stair training when appropriate mobility achieved. Modalities for pain management .
--- NOTE | 2022-07-16 17:27 | PT.OTN ---
Current Diagnoses Unilateral primary osteoarthritis, left knee (07/16/22) Physical Therapy Treatment Note PT-OP-A Visit Information Start: 05/09/22 16:15 Freq: Status: Active Protocol: Document 07/16/22 09:06 LRN (Rec: 07/16/22 09:54 LRN [id number]) Out-Patient Physical Therapy Visit Information Visit Information Visit Type Treatment Note Visit Note 7 after PN Visit Start Time 09:06 Visit Stop Time 09:50 Total Visit Minutes 44 Visit Number 18 Number of VAMP LINER Visits 2 Evaluation Information Evaluation Date 05/11/22 Precautions Precautions Cardiac arrhythmia s/p surgery , and being assessed for Cardiac arrhythmia. R TKA -rehab ending 02/13/22. PT-OP-B Current Condition Start: 05/09/22 16:15 Freq: Status: Active Protocol: Document 05/11/22 09:07 LRN (Rec: 05/11/22 09:47 LRN [id number]) Current Condition History of Current Condition Onset Date 04/27/22 Current Complaints Lack of L knee rom, pain-reqs med, hamstring tight, antalgic gt-FWW. History of Current Condition Pt is s/p L TKA on 04/27/22 and was in hospital 1 day but due to onset of A.Fib was kept in recovery for a few more hours . Wore a heart monitor for a week with removal tomorrow. States with her R TKA she had sinus arrythmia, otherwise no history of cardiac issues. Prior Treatments and Tests Eval and 3 treatments immediately after her TKA in [facility] prior to transfer to [facility]. PT was Reny Downs DPT. Future Testing and Treatments Planned Outpatient Psychiatrist appt tomorrow. Treatment Goals Patient/Caregiver Goals Pt goals: - walk correctly without an assistive device. - Stairs with normal gait. - Transfer without assist of strap. Personal Factors Other Personal Factors That May Effect Pt s/p R TKA 12/10/21 with last Therapy/Recovery rehab treatment 02/13/22, ending with difficulty with sit to stand from lower surfaces. Pt being assessed currently for Cardiac arrhythmia. PT-OP-C Subjective Start: 05/09/22 16:15 Freq: Status: Active Protocol: Document 07/16/22 09:06 LRN (Rec: 07/16/22 09:54 LRN [id number]) OP-PT Subjective Patient Comments Patient Comments States she is going to get PT from her [employer] business at end of this month to complete her therapy. PT-OP-G Mobility & Gait Start: 05/09/22 16:15 Freq: Status: Active Protocol: Document 05/11/22 09:07 LRN (Rec: 05/11/22 09:47 LRN [id number]) OP Mobility Evaluation Bed Mobility Supine to and from Sit Independent with use of strap to help lift the LLE off the bed. Transfers Sit to Stand Independent with use of hands and FWW from higher surface. OP Gait Assessment Gait Gait Assistance Required: Independent Able to Maintain Weight Bearing Status Yes During Gait Assistive Devices Assistive Device Front Wheeled Walker Gait Deviations General Gait Pattern Antalgic,Decreased Stride Length,Flexed Trunk,Step-to Gait Stair Climbing Evaluation Devices Stair Climbing Assistive Devices Right Railing Technique/Endurance Stair Climbing Direction Ascend and Descend Stair Climbing Technique Step to Step Comments Stair Climbing Comments Ascending railing on R, Walking stick on L. PT-OP-H Neuro Start: 05/09/22 16:15 Freq: Status: Active Protocol: Document 05/11/22 09:07 LRN (Rec: 05/11/22 09:47 LRN [id number]) Sensation Evaluation Comments Summary Comments Sensation intact to soft touch in areas not covered by bandage. PT-OP-J Posture/Palpation/Skin Start: 05/09/22 16:15 Freq: Status: Active Protocol: Document 05/11/22 09:07 LRN (Rec: 05/11/22 09:47 LRN [id number]) Posture Evaluation Position Standing L-Spine Posture Flattened Weight Distribution Weight Shifted Right Hip Posture (L) Flexed,(R) Flexed Comments Posture Comments Pt assessed with use of FWW for balance support. Palpation Assessment Location L knee Palpation Location Areas around scar protective bandage. Palpation Details Sensation intact. Skin Assessment Other Assessments Skin Assessment Comments Patient wearing thigh-high MIRELA hose left LE. Pt incision covered with protective bandage. PT-OP-K Range of Motion Start: 05/09/22 16:15 Freq: Status: Active Protocol: Document 07/16/22 09:06 LRN (Rec: 07/16/22 09:54 LRN [id number]) Knee Goniometric Range of Motion Knee Left Knee ROM WFL No Patient Position Supine Flexion Active (degrees) 120 Flexion Passive (degrees) 124 PT-OP-M Strength Start: 05/09/22 16:15 Freq: Status: Active Protocol: Document 06/18/22 09:03 LRN (Rec: 06/18/22 09:47 LRN [id number]) Knee Strength Knee Manual Muscle Testing Left Flexion (S2) 3+ Fair+ Extension (L3) 3+ Fair+ PT-OP-Q Treatments Start: 05/09/22 16:15 Freq: Status: Active Protocol: Document 07/16/22 09:06 LRN (Rec: 07/16/22 09:54 LRN [id number]) Cardio Equipment Bicycle (Upright) Duration (Minutes) 10 Seat Position 2' from seat 8>6, , last 2 min seat 5 Other full revolution entire time. Therapeutic Exercises Supine Exercises Knee flex stretch Supine Exercise Name Knee flex MWM: PA of tib/fib with knee flex Side left Reps/Minutes 3' Heel slides Supine Exercise Name Heel slides with assist w/belt Side left Resistance table Reps/Minutes 5' Comments cues for breathwork Prone Exercises Femoral n. slider Prone Exercise Name Kick head up>head lift/knee flex, then neutral head Side left Reps/Minutes 5x L knee flexion Prone Exercise Name L knee flex strengthening Side left Equipment Used 3#, 4# Reps/Minutes 8x each Femoral n. tensioner Prone Exercise Name Kick head down>head lift/knee ext > same w/ankle DF, , then neutral head Side left Reps/Minutes 5x Hip Ext Prone Exercise Name Hip Ext strengthening Side bilateral Equipment Used 2# Reps/Minutes 10x Gait Training Gait Activity Gait w/B trekking poles Description Gait training w/1 adn 2 trek poles. Device Used Uni RUE trekking pole & 2 trek poles Level of Assistance SBA Surface carpet Distance/Duration 23 Treatment Focus cued hip shift & core/quad/ glut fac over stance (R>L) LE Comments cues for step width and increased hip shift to R to minimize trendelenburg type gait on the R. PT-OP-R Modalities Start: 05/09/22 16:15 Freq: Status: Active Protocol: Document 06/22/22 09:01 NBM (Rec: 06/22/22 09:54 NBM [id number]) Hot Pack/Cold Pack Treatment Cold Pack Location l knee Patient Position Hooklying Treatment Duration (minutes) 10 Patient Tolerance Good Comments top and bottom Legs up on bolster PT-OP-T Assessment and Plan Start: 05/09/22 16:15 Freq: Status: Active Protocol: Document 07/16/22 09:06 LRN (Rec: 07/16/22 09:54 LRN [id number]) Physical Therapy Assessment Goals Four Impairment L knee/hip weakness Impairment L knee strength: Flexion 2/5, Extension 2-/5 R knee strength: Flex/Ext is 5/5 Short Term Goal (STG) Improve L knee strength to at least 3+/5, with pt able to transfer out of bed without the use of a strap to move the LLE. 06/05/22: Pt moving LLE independent from R and use of UE's. STG Duration 06/26/22 (06/05/22: MET GOAL) Diving Board Assembler Goal (LTG) Improve L knee strength to at least 4+/5 to allow patient to ambulate stairs with a normal gait. 06/18/22: Flex 3+/5, Ext 3+/5. 07/09/22: able to receiprocal stepping RHR, decreased stance time LLE descending RLE. LTG Duration 08/09/22 progressing 07/09/22 Three Impairment Decreased L knee AROM Impairment L knee AROM (deg's): 30-58, PROM (deg's): 6-70 R knee AROM (deg's): 6-116, PROM (deg's): 0 deg's extension. Short Term Goal (STG) Improve L knee PROM to 5-120 06/18/22: PROM to 5-111. 06/25/22: PROM flexion 120-122 deg's. STG Duration 06/26/22 (06/25/22: MET GOAL) Diving Board Assembler Goal (LTG) Improve L knee PROM to 0-125. 06/18/22: PROM supine 5-111; AROM siting 10-108 06/22/22: AROM flexion 114, PROM w/ overpressure and breathwork 117. 07/02/22: AROM supine flex is 120 degs' 07/09/22: L knee AROM 1.5-115 deg, AAROM 120 deg. 07/16/22: L knee flex AROM 120, PROM 124. LTG Duration 08/09/22 progressing 07/09/22 Two Impairment gait dysfunction Impairment Pt ambs with FWW, antalgic gait, lacks L ankle/knee mobility Short Term Goal (STG) Patient able to ambulate household distances with cane with min to no limp on level surfaces. 06/01/22: Pt walks with antalgic gait with FWW. 06/15/22: Pt demonstrates improved gait with valencia trekking poles but requires cues for step length and heel strike and neutral pelvis. 06/18/22: Antalgic gait with one trek pole. 06/30/22: Antalgic gait w/ one trek pole RUE. 07/02/22: Walking around home with and w/o trekking pole. 07/09/22: almost no limp with cues for posturing COG over stance LLE in mirror without AD. STG Duration 06/26/22 progressing 07/09/22 Diving Board Assembler Goal (LTG) Pt will ambulate with a normal gait or very minimal antalgic gait without an assistive device. 4 LTG Duration 08/09/22 One Impairment Lacks self care HEP Impairment patient requires use of FWW for gait and ambulates with stiff knee, antalgic gait Short Term Goal (STG) Pt will be educated in edema management. 05/28/22: Educated pt in RICE program. STG Duration 05/15/22 (05/28/22: MET GOAL) Diving Board Assembler Goal (LTG) Pt will be independent with a self care HEP of L knee, ankle , hip ROM/strengthening ex's to address areas of deficit. 06/05/22: HEP: Femoral n. tensioner. Review of previous issued Sciatic n. slider/ tensioner. 07/09/22: ed for continued use of strap for heel slides and AAROM into L knee flexion. LTG Duration 08/09/22 progressed 07/09/22 Assessment Summary Assessment L knee flex AROM is 120 deg's in supine and PROM is 124 deg' s. Poor gt mechanics on the R (non-operative side) side causing trendelenburg type gait. Physical Therapy Plan Frequency and Duration Frequency of Treatment 2x/Week Plan of Care Start Date 06/18/22 Plan of Care End Date 07/24/22 Next Visit Focus/Plan Next Note Type Treatment Note Next Visit Plan Check L knee ROM before starting bike, if ROM is 125 deg's PROM, then start with Gait training level and on stairs before DC in 2 weeks. Add hip abd strengthening on side to support medial knee recruitment and cuing for alignment awareness with functional ther ex. Check L ankle DF for need of stretching. Continue if ROM limited: recumbent bike (seat hgt 4-5 if tolerated) . Gait with 2 trek poles and progress gait in mirror. Descend stair mgt L knee flexion. Monitor AA/AROM. POC: L TKA rehab for L knee ROM, L hip strengthening. Stair training when appropriate mobility achieved. Modalities for pain management if needed.
--- NOTE | 2022-07-20 17:02 | PT.OTN ---
Current Diagnoses Unilateral primary osteoarthritis, left knee (07/20/22) Physical Therapy Treatment Note PT-OP-A Visit Information Start: 05/09/22 16:15 Freq: Status: Active Protocol: Document 07/20/22 13:48 LRN (Rec: 07/20/22 14:34 LRN [id number]) Out-Patient Physical Therapy Visit Information Visit Information Visit Type Treatment Note Visit Note 8 after PN Visit Start Time 14:30 Visit Stop Time 14:26 Total Visit Minutes 40 Visit Number 19 Evaluation Information Evaluation Date 05/11/22 Precautions Precautions Cardiac arrhythmia s/p surgery , and being assessed for Cardiac arrhythmia. R TKA -rehab ending 02/13/22. PT-OP-B Current Condition Start: 05/09/22 16:15 Freq: Status: Active Protocol: Document 05/11/22 09:07 LRN (Rec: 05/11/22 09:47 LRN [id number]) Current Condition History of Current Condition Onset Date 04/27/22 Current Complaints Lack of L knee rom, pain-reqs med, hamstring tight, antalgic gt-FWW. History of Current Condition Pt is s/p L TKA on 04/27/22 and was in hospital 1 day but due to onset of A.Fib was kept in recovery for a few more hours . Wore a heart monitor for a week with removal tomorrow. States with her R TKA she had sinus arrythmia, otherwise no history of cardiac issues. Prior Treatments and Tests Eval and 3 treatments immediately after her TKA in [facility] prior to transfer to [facility]. PT was Reny Downs DPT. Future Testing and Treatments Planned [place] appt tomorrow. Treatment Goals Patient/Caregiver Goals Pt goals: - walk correctly without an assistive device. - Stairs with normal gait. - Transfer without assist of strap. Personal Factors Other Personal Factors That May Effect Pt s/p R TKA 12/10/21 with last Therapy/Recovery rehab treatment 02/13/22, ending with difficulty with sit to stand from lower surfaces. Pt being assessed currently for Cardiac arrhythmia. PT-OP-C Subjective Start: 05/09/22 16:15 Freq: Status: Active Protocol: Document 07/20/22 13:48 LRN (Rec: 07/20/22 14:34 LRN [id number]) OP-PT Subjective Patient Comments Patient Comments Pt states she got confused at which hip to stick out with gait practice. PT-OP-G Mobility & Gait Start: 05/09/22 16:15 Freq: Status: Active Protocol: Document 05/11/22 09:07 LRN (Rec: 05/11/22 09:47 LRN [id number]) OP Mobility Evaluation Bed Mobility Supine to and from Sit Independent with use of strap to help lift the LLE off the bed. Transfers Sit to Stand Independent with use of hands and FWW from higher surface. OP Gait Assessment Gait Gait Assistance Required: Independent Able to Maintain Weight Bearing Status Yes During Gait Assistive Devices Assistive Device Front Wheeled Walker Gait Deviations General Gait Pattern Antalgic,Decreased Stride Length,Flexed Trunk,Step-to Gait Stair Climbing Evaluation Devices Stair Climbing Assistive Devices Right Railing Technique/Endurance Stair Climbing Direction Ascend and Descend Stair Climbing Technique Step to Step Comments Stair Climbing Comments Ascending railing on R, Walking stick on L. PT-OP-H Neuro Start: 05/09/22 16:15 Freq: Status: Active Protocol: Document 05/11/22 09:07 LRN (Rec: 05/11/22 09:47 LRN [id number]) Sensation Evaluation Comments Summary Comments Sensation intact to soft touch in areas not covered by bandage. PT-OP-J Posture/Palpation/Skin Start: 05/09/22 16:15 Freq: Status: Active Protocol: Document 05/11/22 09:07 LRN (Rec: 05/11/22 09:47 LRN [id number]) Posture Evaluation Position Standing L-Spine Posture Flattened Weight Distribution Weight Shifted Right Hip Posture (L) Flexed,(R) Flexed Comments Posture Comments Pt assessed with use of FWW for balance support. Palpation Assessment Location L knee Palpation Location Areas around scar protective bandage. Palpation Details Sensation intact. Skin Assessment Other Assessments Skin Assessment Comments Patient wearing thigh-high MIRELA hose left LE. Pt incision covered with protective bandage. PT-OP-K Range of Motion Start: 05/09/22 16:15 Freq: Status: Active Protocol: Document 07/20/22 13:48 LRN (Rec: 07/20/22 14:34 LRN [id number]) Knee Goniometric Range of Motion Knee Left Knee ROM WFL No Patient Position Supine Flexion Active (degrees) 120 Flexion Passive (degrees) 122 PT-OP-M Strength Start: 05/09/22 16:15 Freq: Status: Active Protocol: Document 06/18/22 09:03 LRN (Rec: 06/18/22 09:47 LRN [id number]) Knee Strength Knee Manual Muscle Testing Left Flexion (S2) 3+ Fair+ Extension (L3) 3+ Fair+ PT-OP-Q Treatments Start: 05/09/22 16:15 Freq: Status: Active Protocol: Document 07/20/22 13:48 LRN (Rec: 07/20/22 14:34 LRN [id number]) Therapeutic Exercises Sidelying Exercises R hip AB Sidelying Exercise Name Stretch to TFL Side right Reps/Minutes 3' Gait Training Gait Activity SLS Description Wgt shift during SLS (R is worse than L) Device Used 1 or 2 walking sticks Surface Level Distance/Duration 24' Treatment Focus Equal weight shift, keeping head/shoulders level and in alignment with gait Comments Focus also on less pressure through use of walking sticks. Gait training Description Gait training w/o assistive device Surface Level Distance/Duration 2' Treatment Focus Wgt shift hips to R Stairs Description 6 training steps Device Used RUE handrail Level of Assistance SBA Distance/Duration 4 laps 4 stairs ascend/descend Treatment Focus weight distribution, sequencing, upright posture Comments receiprocal stepping, cues quad/glut fac asd, slower eccentric L knee flexion during RLE advancement descending. Improved no limp ascend. PT-OP-R Modalities Start: 05/09/22 16:15 Freq: Status: Active Protocol: Document 06/22/22 09:01 NBM (Rec: 06/22/22 09:54 [facility] [id number]) Hot Pack/Cold Pack Treatment Cold Pack Location l knee Patient Position Hooklying Treatment Duration (minutes) 10 Patient Tolerance Good Comments top and bottom Legs up on bolster PT-OP-T Assessment and Plan Start: 05/09/22 16:15 Freq: Status: Active Protocol: Document 07/20/22 13:48 LRN (Rec: 07/20/22 14:34 LRN [id number]) Physical Therapy Assessment Goals Four Impairment L knee/hip weakness Impairment L knee strength: Flexion 2/5, Extension 2-/5 R knee strength: Flex/Ext is 5/5 Short Term Goal (STG) Improve L knee strength to at least 3+/5, with pt able to transfer out of bed without the use of a strap to move the LLE. 06/05/22: Pt moving LLE independent from R and use of UE's. STG Duration 06/26/22 (06/05/22: MET GOAL) Senior Living Goal (LTG) Improve L knee strength to at least 4+/5 to allow patient to ambulate stairs with a normal gait. 06/18/22: Flex 3+/5, Ext 3+/5. 07/09/22: able to receiprocal stepping RHR, decreased stance time LLE descending RLE. LTG Duration 08/09/22 progressing 07/09/22 Three Impairment Decreased L knee AROM Impairment L knee AROM (deg's): 30-58, PROM (deg's): 6-70 R knee AROM (deg's): 6-116, PROM (deg's): 0 deg's extension. Short Term Goal (STG) Improve L knee PROM to 5-120 06/18/22: PROM to 5-111. 06/25/22: PROM flexion 120-122 deg's. STG Duration 06/26/22 (06/25/22: MET GOAL) Machine Tool Technology Instructor Goal (LTG) Improve L knee PROM to 0-125. 06/18/22: PROM supine 5-111; AROM siting 10-108 06/22/22: AROM flexion 114, PROM w/ overpressure and breathwork 117. 07/02/22: AROM supine flex is 120 degs' 07/09/22: L knee AROM 1.5-115 deg, AAROM 120 deg. 07/16/22: L knee flex AROM 120, PROM 124. LTG Duration 08/09/22 progressing 07/09/22 Two Impairment gait dysfunction Impairment Pt ambs with FWW, antalgic gait, lacks L ankle/knee mobility Short Term Goal (STG) Patient able to ambulate household distances with cane with min to no limp on level surfaces. 06/01/22: Pt walks with antalgic gait with FWW. 06/15/22: Pt demonstrates improved gait with valencia trekking poles but requires cues for step length and heel strike and neutral pelvis. 06/18/22: Antalgic gait with one trek pole. 06/30/22: Antalgic gait w/ one trek pole RUE. 07/02/22: Walking around home with and w/o trekking pole. 07/09/22: almost no limp with cues for posturing COG over stance LLE in mirror without AD. 07/20/22: Pt able to walk with minimal limp using 1 trekking pole due to hip AB weakness on the opposite side of surgery when concentrating on gait. She tends to amb with dysfunctional gait out of habit. STG Duration 06/26/22 (07/20/22: MET GOAL when pt concentrating on gait ) Senior Living Goal (LTG) Pt will ambulate with a normal gait or very minimal antalgic gait without an assistive device. 07/20/22: After gait training pt was able to ambulate with minimal antalgic gait, mostly a dysfunctional gait due to R hip weakness. Pt has considerable dysfunctional gait when not concentrating on gait. LTG Duration 08/09/22 progressing 07/20/22 . One Impairment Lacks self care HEP Impairment patient requires use of FWW for gait and ambulates with stiff knee, antalgic gait Short Term Goal (STG) Pt will be educated in edema management. 05/28/22: Educated pt in RICE program. STG Duration 05/15/22 (05/28/22: MET GOAL) Machine Tool Technology Instructor Goal (LTG) Pt will be independent with a self care HEP of L knee, ankle , hip ROM/strengthening ex's to address areas of deficit. 06/05/22: HEP: Femoral n. tensioner. Review of previous issued Sciatic n. slider/ tensioner. 07/09/22: ed for continued use of strap for heel slides and AAROM into L knee flexion. LTG Duration 08/09/22 progressed 07/09/22 Progress Towards Goals Progress Comments STG #2 MET. Assessment Summary Assessment Pt needed much training for gait due to heavy trunk sway to the right with gait. Much improved hip shift to the R with gait after stretch to R hip TFL (weakness in new hip AD range). Pt able to amb up/ down stairs with 2 rails without pain c/o at L knee although PROM L knee flex is 122 deg's. Physical Therapy Plan Frequency and Duration Frequency of Treatment 2x/Week Plan of Care Start Date 06/18/22 Plan of Care End Date 07/24/22 Next Visit Focus/Plan Next Note Type Discharge Summary Next Visit Plan Reassess for DC. Focus on L knee ROM; if ROM is 125 deg's PROM, then start with Gait training on stairs and on level. Add hip abd strengthening on side to support medial knee recruitment and cuing for alignment awareness with functional ther ex. Check L ankle DF for need of stretching. POC: L TKA rehab for L knee ROM, L hip AB strengthening.
--- NOTE | 2022-07-23 18:05 | PT.OTN ---
Current Diagnoses Unilateral primary osteoarthritis, left knee (07/23/22) Physical Therapy Treatment Note PT-OP-A Visit Information Start: 05/09/22 16:15 Freq: Status: Active Protocol: Document 07/23/22 09:03 LRN (Rec: 07/23/22 09:53 LRN [id number]) Out-Patient Physical Therapy Visit Information Visit Information Visit Type Discharge Summary Visit Note 9 after PN Visit Start Time 09:03 Visit Stop Time 09:52 Total Visit Minutes 49 Visit Number 20 Evaluation Information Evaluation Date 05/11/22 Precautions Precautions Cardiac arrhythmia s/p surgery , and being assessed for Cardiac arrhythmia. R TKA -rehab ending 02/13/22. PT-OP-B Current Condition Start: 05/09/22 16:15 Freq: Status: Active Protocol: Document 05/11/22 09:07 LRN (Rec: 05/11/22 09:47 LRN [id number]) Current Condition History of Current Condition Onset Date 04/27/22 Current Complaints Lack of L knee rom, pain-reqs med, hamstring tight, antalgic gt-FWW. History of Current Condition Pt is s/p L TKA on 04/27/22 and was in hospital 1 day but due to onset of A.Fib was kept in recovery for a few more hours . Wore a heart monitor for a week with removal tomorrow. States with her R TKA she had sinus arrythmia, otherwise no history of cardiac issues. Prior Treatments and Tests Eval and 3 treatments immediately after her TKA in [facility] prior to transfer to [facility]. PT was Reny Downs DPT. Future Testing and Treatments Planned Cotton Converter appt tomorrow. Treatment Goals Patient/Caregiver Goals Pt goals: - walk correctly without an assistive device. - Stairs with normal gait. - Transfer without assist of strap. Personal Factors Other Personal Factors That May Effect Pt s/p R TKA 12/10/21 with last Therapy/Recovery rehab treatment 02/13/22, ending with difficulty with sit to stand from lower surfaces. Pt being assessed currently for Cardiac arrhythmia. PT-OP-C Subjective Start: 05/09/22 16:15 Freq: Status: Active Protocol: Document 07/23/22 09:03 LRN (Rec: 07/23/22 09:53 LRN [id number]) OP-PT Subjective Patient Comments Patient Comments States she did her Nustep this morning. Did babysitting grandson yesterday and has not had time to exercise. States her back started hurting from standing at kitchen to make meals. Patient Questionnaires Lower Extremity Functional Scale LEFS Score 60 LEFS Impairment 20 to 39% Impaired (Score 48- 62) PT-OP-G Mobility & Gait Start: 05/09/22 16:15 Freq: Status: Active Protocol: Document 05/11/22 09:07 LRN (Rec: 05/11/22 09:47 LRN [id number]) OP Mobility Evaluation Bed Mobility Supine to and from Sit Independent with use of strap to help lift the LLE off the bed. Transfers Sit to Stand Independent with use of hands and FWW from higher surface. OP Gait Assessment Gait Gait Assistance Required: Independent Able to Maintain Weight Bearing Status Yes During Gait Assistive Devices Assistive Device Front Wheeled Walker Gait Deviations General Gait Pattern Antalgic,Decreased Stride Length,Flexed Trunk,Step-to Gait Stair Climbing Evaluation Devices Stair Climbing Assistive Devices Right Railing Technique/Endurance Stair Climbing Direction Ascend and Descend Stair Climbing Technique Step to Step Comments Stair Climbing Comments Ascending railing on R, Walking stick on L. PT-OP-H Neuro Start: 05/09/22 16:15 Freq: Status: Active Protocol: Document 05/11/22 09:07 LRN (Rec: 05/11/22 09:47 LRN [id number]) Sensation Evaluation Comments Summary Comments Sensation intact to soft touch in areas not covered by bandage. PT-OP-J Posture/Palpation/Skin Start: 05/09/22 16:15 Freq: Status: Active Protocol: Document 05/11/22 09:07 LRN (Rec: 05/11/22 09:47 LRN [id number]) Posture Evaluation Position Standing L-Spine Posture Flattened Weight Distribution Weight Shifted Right Hip Posture (L) Flexed,(R) Flexed Comments Posture Comments Pt assessed with use of FWW for balance support. Palpation Assessment Location L knee Palpation Location Areas around scar protective bandage. Palpation Details Sensation intact. Skin Assessment Other Assessments Skin Assessment Comments Patient wearing thigh-high MIRELA hose left LE. Pt incision covered with protective bandage. PT-OP-K Range of Motion Start: 05/09/22 16:15 Freq: Status: Active Protocol: Document 07/23/22 09:03 LRN (Rec: 07/23/22 09:53 LRN [id number]) Knee Goniometric Range of Motion Knee Right Knee ROM WFL Yes Patient Position Supine Flexion Active (degrees) 125 Flexion Passive (degrees) 127 Extension Active (degrees) 0 Extension Passive (degrees) 0 Left Knee ROM WFL No Patient Position Supine Flexion Active (degrees) 122 Flexion Passive (degrees) 125 Comments Active extension lag of 4 deg' s in sitting. PT-OP-M Strength Start: 05/09/22 16:15 Freq: Status: Active Protocol: Document 06/18/22 09:03 LRN (Rec: 06/18/22 09:47 LRN [id number]) Knee Strength Knee Manual Muscle Testing Left Flexion (S2) 3+ Fair+ Extension (L3) 3+ Fair+ PT-OP-Q Treatments Start: 05/09/22 16:15 Freq: Status: Active Protocol: Document 07/23/22 09:03 LRN (Rec: 07/23/22 09:53 LRN [id number]) Therapeutic Exercises Supine Exercises Hip AB Supine Exercise Name BKFO - lymph ex program Side left Reps/Minutes 10x Comments Cuing and assist for not lifting leg with ex Sidelying Exercises Clamshell Sidelying Exercise Name Clamshell Side left Reps/Minutes 15x Comments Good core stab R hip AB Sidelying Exercise Name Active hip AB Side left Reps/Minutes 10x Comments Cuing for core stability. Sitting Exercises Knee flex Sitting Exercise Name Active knee flex Side left Reps/Minutes x10 Comments ROM and MMT taken Knee ext Sitting Exercise Name Active knee ext. Side left Comments Ext is lacking 4 deg's. ROM and MMT taken Standing Exercises IT band stretch Standing Exercise Name IT band stretch Side right Reps/Minutes 3' Comments Extra time for positioning and determining max tolerated stretch. VMO strengthening Standing Exercise Name VMO Heel tap/Squat Side left Equipment Used Railing Reps/Minutes 6' Comments Extra time for positioning and proper performance of exercise. Gait Training Gait Activity Gait training Description Gait training w/o assistive device Surface Level Distance/Duration 10' Treatment Focus Wgt shift hips to R, normal gait mechanics. Gait w/B trekking poles Description Gait training w/ 2 trek poles. Device Used 2 trek poles Level of Assistance SBA Surface level Distance/Duration 4' Treatment Focus cued hip shift & core/quad/ glut fac over stance (R>L) LE Comments cues for step width and increased hip shift to R to minimize trendelenburg type gait on the R. Self-Care/Home Management Treatment Education Patient Education Home Exercise Program Activities Self-Care/Home Management Activities Issued & reviewed HEP: VMO strengthening (heel tap/squat) and IT band stretch with I/S for stretch to the R side. PT-OP-R Modalities Start: 05/09/22 16:15 Freq: Status: Active Protocol: Document 06/22/22 09:01 NBM (Rec: 06/22/22 09:54 NBM [id number]) Hot Pack/Cold Pack Treatment Cold Pack Location l knee Patient Position Hooklying Treatment Duration (minutes) 10 Patient Tolerance Good Comments top and bottom Legs up on bolster PT-OP-T Assessment and Plan Start: 05/09/22 16:15 Freq: Status: Active Protocol: Document 07/23/22 09:03 LRN (Rec: 07/23/22 09:53 LRN [id number]) Physical Therapy Assessment Goals Four Impairment L knee/hip weakness Impairment L knee strength: Flexion 2/5, Extension 2-/5 R knee strength: Flex/Ext is 5/5 Short Term Goal (STG) Improve L knee strength to at least 3+/5, with pt able to transfer out of bed without the use of a strap to move the LLE. 06/05/22: Pt moving LLE independent from R and use of UE's. STG Duration 06/26/22 (06/05/22: MET GOAL) Clean Up Supervisor Goal (LTG) Improve L knee strength to at least 4+/5 to allow patient to ambulate stairs with a normal gait. 06/18/22: Flex 3+/5, Ext 3+/5. 07/09/22: able to receiprocal stepping RHR, decreased stance time LLE descending RLE. 07/23/22: MMT: L knee Flex/ Ext strength is 5/5. Reciprocal gait up/down stairs with use of railing. Stair ambulation not done without railing due to pt feeling of instability. LTG Duration 08/09/22 (07/23/22: MET GOAL with use of railing on stairs) Three Impairment Decreased L knee AROM Impairment L knee AROM (deg's): 30-58, PROM (deg's): 6-70 R knee AROM (deg's): 6-116, PROM (deg's): 0 deg's extension. Short Term Goal (STG) Improve L knee PROM to 5-120 06/18/22: PROM to 5-111. 06/25/22: PROM flexion 120-122 deg's. STG Duration 06/26/22 (06/25/22: MET GOAL) Group Home Goal (LTG) Improve L knee PROM to 0-125. 06/18/22: PROM supine 5-111; AROM siting 10-108 06/22/22: AROM flexion 114, PROM w/ overpressure and breathwork 117. 07/02/22: AROM supine flex is 120 degs' 07/09/22: L knee AROM 1.5-115 deg, AAROM 120 deg. 07/16/22: L knee flex AROM 120, PROM 124. 07/23/22: L knee flex AROM ( sup): 0-122, PROM 0-125) LTG Duration 08/09/22 (07/23/22: MET GOAL , but not in sitting active ext is lacking 4) Two Impairment gait dysfunction Impairment Pt ambs with FWW, antalgic gait, lacks L ankle/knee mobility Short Term Goal (STG) Patient able to ambulate household distances with cane with min to no limp on level surfaces. 06/01/22: Pt walks with antalgic gait with FWW. 06/15/22: Pt demonstrates improved gait with valencia trekking poles but requires cues for step length and heel strike and neutral pelvis. 06/18/22: Antalgic gait with one trek pole. 06/30/22: Antalgic gait w/ one trek pole RUE. 07/02/22: Walking around home with and w/o trekking pole. 07/09/22: almost no limp with cues for posturing COG over stance LLE in mirror without AD. 07/20/22: Pt able to walk with minimal limp using 1 trekking pole due to hip AB weakness on the opposite side of surgery when concentrating on gait. She tends to amb with dysfunctional gait out of habit. STG Duration 06/26/22 (07/20/22: MET GOAL when pt concentrating on gait ) Group Home Goal (LTG) Pt will ambulate with a normal gait or very minimal antalgic gait without an assistive device. 07/20/22: After gait training pt was able to ambulate with minimal antalgic gait, mostly a dysfunctional gait due to R hip weakness. Pt has considerable dysfunctional gait when not concentrating on gait. 07/23/22: Same as above. LTG Duration 08/09/22 (07/23/22: NOT MET GOAL) One Impairment Lacks self care HEP Impairment patient requires use of FWW for gait and ambulates with stiff knee, antalgic gait Short Term Goal (STG) Pt will be educated in edema management. 05/28/22: Educated pt in RICE program. STG Duration 05/15/22 (05/28/22: MET GOAL) Group Home Goal (LTG) Pt will be independent with a self care HEP of L knee, ankle , hip ROM/strengthening ex's to address areas of deficit. 06/05/22: HEP: Femoral n. tensioner. Review of previous issued Sciatic n. slider/ tensioner. 07/09/22: ed for continued use of strap for heel slides and AAROM into L knee flexion. 07/23/22: HEP: LTG Duration 08/09/22 (07/23/22 MET GOAL for current status) Assessment Summary Assessment Meme has today met her L knee AROM/PROM goal is supine, but she does demonstrate in sitting an extension lag of 4 deg's. Her gait is has been difficult to correct due to habits formed on the R side after her R TKA and appears to somewhat affect her L side. She demonstrates weakness in the hip abductors, also leading to her dysfunctional gait. The pt is transferring her care to a clinic in [place] to complete her L TKA rehabilitation. Pt is being discharged from physical therapy today. Physical Therapy Plan Frequency and Duration Frequency of Treatment 2x/Week Plan of Care Start Date 06/18/22 Plan of Care End Date 07/24/22 Discharge Physical Therapy Discharge Reasons Patient Request Discharge Comments Pt care being transferred to [facility]'s PT clinic in [place], [place] at pt request. Thank you for your referral.
== END 2022-07-24 11:42 | disposition home or self-care (01) ==
LOC: PHYS 09:00
PROVIDERS: Family Provider Orthopaedic Surgery; PCP Orthopaedic Surgery; Referring Provider Orthopaedic Surgery; Visit Provider Orthopaedic Surgery
DX: M17.12 Unilateral primary osteoarthritis, left knee (principal)
CPT/HCPCS: 97110; 97116; 97140; 97162

== ENCOUNTER → 2023-04-23 14:24 | Outpatient (CLI) | payer MEDICARE, SELFPAY ==
--- NOTE | 2023-04-23 14:27 | DI.MG.S_ITS ---
BILATERAL DIGITAL SCREENING MAMMOGRAM 3D/2D WITH CAD: 04/23/2023 CLINICAL: Routine screening. Family history of breast cancer. Comparison is made to exams dated: 04/21/2022 mammogram, 01/17/2021 mammogram - [facility], and 09/22/2017 mammogram - outside facility. There are scattered areas of fibroglandular density in both breasts (category b / 25%-50% glandular tissue). Current study was also evaluated with a Computer Aided Detection (CAD) system. No significant masses, calcifications, or other findings are seen in either breast. There has been no significant interval change. IMPRESSION: NEGATIVE There is no mammographic evidence of malignancy. A 1 year screening mammogram is recommended. Based on the Tyrer Cuzick model (a risk assessment model) the patient's lifetime risk is 3.3% and her 10 year risk is 2.4%. According to the ACR, ACS, and NCCN guidelines, an annual breast MRI exam along with mammogram is recommended if the patient's lifetime risk is 20% or greater. This exam was interpreted at Station ID: [id number]. NOTE: For mammograms, a report in lay terms will be sent to the patient. Approximately 15% of breast malignancies will not be visualized mammographically. In the management of a palpable breast mass, a negative mammogram must not discourage biopsy of a clinically suspicious lesion. Electronically Signed By: Macario lindsay/[email or web address]:04/24/2023 08:36:50 letter sent: Normal Exam ACR BI-RADS Category 1: Negative [id number]
== END ==
PROVIDERS: Family Provider Orthopaedic Surgery; PCP Family Medicine; Referring Provider Family Medicine; Visit Provider Family Medicine
DX: Z12.31 Encounter for screening mammogram for malignant neoplasm of breast (principal); Z80.3 Family history of malignant neoplasm of breast; R92.323 Mammographic fibroglandular density, bilateral breasts
CPT/HCPCS: 77063; 77067